=== PATIENT | female | born 1960 | race Caucasian/White ===

== ENCOUNTER 2023-09-13 17:33 | Inpatient (IN) | payer OTHER, SELFPAY ==
[2023-09-13 18:35] VITALS: BMI 44.3
--- NOTE | 2023-09-13 18:40 | ED.GENADULT ---
HPI - General Adult General Chief complaint: Psychiatric Symptoms Stated complaint: crisis eval Time Seen by Provider: 09/13/23 18:03 Source: patient, RN notes reviewed and old records reviewed Mode of arrival: ambulatory Limitations: no limitations History of Present Illness HPI narrative: 62-year-old female presents for evaluation of depression. Patient reports that she has been depressed for quite some time. She was speaking to her therapist today and apparently endorse multiple plans for suicidal ideation but she refuses to develop disease plans to me. She continues to state ?I just have a lot going on. ? Patient reports that she feels safe in the hospital but ?I am unsure if I go home. ? She denies any somatic complaints Patient reports that she was at [facility] last week but did not feel comfortable as she was in a hallway so ultimately left Related Data Home Medications Medication Instructions Recorded Confirmed amlodipine 5 mg tablet 5 mg PO DAILY 09/14/23 09/14/23 buspirone 5 mg tablet 5 mg PO BID 09/14/23 09/14/23 calcium carbonate 600 mg-vitamin 1 tab PO BID 09/14/23 09/14/23 D3 10 mcg (400 unit) chewable tablet (Calcium 600 with Vitamin D3) donepezil 5 mg tablet 5 mg PO DAILY 09/14/23 09/14/23 doxepin 10 mg capsule 10 mg PO BEDTIME 09/14/23 09/14/23 gabapentin 100 mg capsule 100 mg PO TID 09/14/23 09/14/23 hydrochlorothiazide 12.5 mg capsule 12.5 mg PO DAILY 09/14/23 09/14/23 lamotrigine 100 mg tablet 100 mg PO DAILY 09/14/23 09/14/23 levothyroxine 200 mcg tablet 200 mcg PO DAILY 09/14/23 09/14/23 methadone 80 mg PO DAILY 09/14/23 09/14/23 multivitamin 1 tab PO DAILY 09/14/23 09/14/23 prazosin 1 mg capsule 1 mg PO BEDTIME 09/14/23 09/14/23 sertraline 100 mg tablet 100 mg PO BID 09/14/23 09/14/23 Allergies Allergy/AdvReac Type Severity Reaction Status Date / Time influenza virus vaccine, Allergy Unknown UNKNOWN Unverified 06/01/21 11:28 specific [Influenza Virus Vacc,Specific] pneumococcal vaccine Allergy Unknown UNKNOWN Unverified 06/01/21 11:28 [PNEUMOCOCCAL VACCINE] Sulfa (Sulfonamide Allergy Unknown UNKNOWN Unverified 06/01/21 11:28 Antibiotics) Review of Systems Constitutional: Constitutional: Denies body ache(s), Denies chills, Denies fever(s) and Denies headache(s) Eyes: Eyes: Denies blurry vision ENT: Denies headache(s) and Denies sore throat Cardiovascular: Cardiovascular: Denies chest pain Musculoskeletal: Musculoskeletal: Denies back pain Neurologic: Denies headache(s) Psychiatric: Psychiatric: Reports anxiety, Reports depression and Reports suicidal ideation [facility] Social History Social History (System 06/01/21 @ 11:28 by Linda Kuhn) Advance Directives: No Advance Directives Information Provided: No Physical Exam ED Vital Signs: Vital Signs - 24 hr 09/14/23 04:42 09/14/23 07:40 Respiratory Rate 16 16 BMI result Body Mass Index 44.3 Const General: healthy appearing, comfortable, no acute distress, alert and awake Nutritional Appearance: well nourished Orientation/consciousness: patient oriented x3 HENMT Head: Yes normocephalic and Yes atraumatic Eyes Eyelids: Yes eyelids normal Conjunctivae: conjunctivae normal Sclerae: sclerae normal Corneas: corneas normal Pupils: Equal, round and reactive pupils present EOM: EOMs intact bilaterally Neck Neck: Yes full ROM Resp Effort & Inspection: normal respiratory effort, able to speak in complete sentences and not labored Skin General skin exam: elasticity normal Neuro General: patient oriented x3 Cranial nerves: Yes CN's II-XII intact bilaterally, Yes Equal, round and reactive pupils present and Yes Bilaterally intact EOM present Cognition (Neuro): normal cognition Extrem Other: Moving all extremities well without any obvious deformities Course Reevaluation(s) Reevaluation #1: observation continued no acute events VS pending CARE team bed search Time: 09:21 Medications Administered Discontinued Medications Generic Name Dose Route Start Last Admin Trade Name Erwin PRN Reason Stop Dose Admin Ibuprofen 600 mg 09/13/23 20:11 09/13/23 20:14 Ibuprofen 600 Mg Tablet PO 09/13/23 20:12 600 mg ONCE ONE Administration Lorazepam 2 mg 09/13/23 19:09 09/13/23 19:38 Lorazepam 1 Mg Tablet PO 09/13/23 19:10 2 mg ONCE ONE Administration Nicotine 21 mg 09/13/23 20:43 09/13/23 20:46 Nicotine 21 Mg Patch.Td24 TRANSDERMA 09/13/23 20:44 21 mg ONCE ONE Administration Medical Decision Making Medical Decision Making MDM Narrative: 62-year-old female presents for evaluation depression with suicidal ideation. The patient is unable to tell me that she has not suicidal and per her therapist has several plans for suicidal ideation. The patient was requesting discharge because she was told she can not have her iPad with her. Unfortunately given the plans for suicide ideation I feel the patient should not be discharged without a proper crisis evaluation. The patient was placed on a section 12. Plan for medical clearance and care team evaluation Differential Diagnosis Differential Diagnoses: The differential diagnosis associated with the presentation includes Depression Suicidal ideation Medication noncompliance Bipolar disorder Lab Data 09/13/23 20:38 09/13/23 20:38 Labs: Lab Results 09/13/23 09/13/23 Range/Units 18:50 20:38 WBC 3.8 L (4.8-10.8) X10*3/uL RBC 3.72 L (4.20-5.50) X10*6/uL Hgb 11.8 L (12.0-16.0) g/dl Hct 34.2 L (37.0-47.0) % MCV 91.9 (80.0-98.0) fL MCH 31.7 (27.0-33.0) pg MCHC 34.5 (31.0-35.0) g/dl RDW 13.9 (11.0-16.0) % Plt Count 104 L (160-400) X10*3/uL MPV 9.1 L (9.4-12.3) fL Immature Gran % (Auto) 0.3 (0.0-0.4) % Neut % (Auto) 60.6 (45-73) % Lymph % (Auto) 26.3 (20-40) % [place] % (Auto) 8.8 (2-11) % Eos % (Auto) 3.2 (0-4) % Baso % (Auto) 0.8 (0-2) % Lymph # (Auto) 1.0 L (1.2-4.9) X10*3/uL [place] # (Auto) 0.3 (0.1-1.2) X10*3/uL Eos # (Auto) 0.1 (0.0-0.4) X10*3/uL Baso # (Auto) 0.0 (0.0-0.2) X10*3/uL Abs Immat Gran (auto) 0.01 (0.00-0.03) X10*3/uL Absolute Neuts (auto) 2.3 (2.0-8.3) x10*3/uL Absolute Nucleated RBC 0.000 (0.0-0.012) X10*3/uL Nucleated RBC % (auto) 0.0 (0.0-0.2) /100WBC Sodium 140 (135-145) mmol/L Potassium 3.8 (3.3-5.1) mmol/L Chloride 104 (96-108) mmol/L Carbon Dioxide 28 (22-29) mmol/L Anion Gap 12 (12-20) BUN 31 H (9-16) mg/dL Creatinine 0.95 (0.5-1.4) mg/dL Estim Creat Clear Calc 76.3 Estimated GFR > 60 Random Glucose 93 (60-115) mg/dL Calcium 10.0 (8.4-10.2) mg/dL Magnesium 2.1 (1.6-2.6) mg/dL Total Bilirubin 0.6 (0.0-1.0) mg/dL AST 45 H (5-31) U/L ALT 31 (0-31) U/L Alkaline Phosphatase 90 (39-117) U/L Total Protein 8.2 H (6.5-8.0) g/dL Albumin 4.4 (3.5-5.0) g/dL Urine Color Yellow Urine Appearance Clear Urine pH 6.0 (5.0-9.0) Ur Specific [place] 1.020 (1.005-1.025) Urine Protein Negative (Neg-Trace) mg/dL Urine Glucose (UA) Negative (Negative) mg/dL Urine Ketones Negative (Negative) mg/dL Urine Blood Negative (Negative) Urine Nitrite Negative (Negative) Ur Leukocyte Esterase Small (1+) H (Negative) Urine RBC 0-2 (0-2) /HPF Urine WBC 0-5 (0-5) /HPF Ur Squamous Epith Cells 0-2 (0-2) /HPF Urine Bacteria None Seen (None Seen) Hyaline Casts 0-2 (0-2) /LPF Salicylates < 5.0 L (15-30) mg/dL Urine Opiates Screen Not Detected (Not Detect) Urine Fentanyl Screen POSITIVE H (Not Detect) Acetaminophen < 3 (<30) mcg/mL Ur Barbiturates Screen Not Detected (Not Detect) Ur Phencyclidine Scrn Not Detected (Not Detect) Ur Amphetamines Screen Not Detected (Not Detect) U Benzodiazepines Scrn Not Detected (Not Detect) Urine Cocaine Screen POSITIVE H (Not Detect) U Marijuana (THC) Screen Not Detected (Not Detect) Ethyl Alcohol < 10 mg/dL Discharge Plan Discharge Clinical Impression: Depression, Suicidal ideation Patient Disposition: Still a Patient Prescriptions: No Action multivitamin Tablet 1 tab PO DAILY buspirone 5 mg tablet 5 mg PO BID prazosin 1 mg capsule 1 mg PO BEDTIME sertraline 100 mg tablet 100 mg PO BID amlodipine 5 mg tablet 5 mg PO DAILY hydrochlorothiazide 12.5 mg capsule 12.5 mg PO DAILY levothyroxine 200 mcg tablet 200 mcg PO DAILY gabapentin 100 mg capsule 100 mg PO TID lamotrigine 100 mg tablet 100 mg PO DAILY donepezil 5 mg tablet 5 mg PO DAILY doxepin 10 mg capsule 10 mg PO BEDTIME Calcium 600 with Vitamin D3 600 mg-10 mcg (400 unit) tablet,chewable 1 tab PO BID methadone 80 mg PO DAILY Interventions: [place]-Suicide Risk Severity Scale Last Done: 09/13/23 23:48
[2023-09-13 18:56] LABS: Appearance Urine Clear; Color Urine Yellow; Glucose Urine UA Negative (Negative); Leukocyte Esterase Urine Small (1+) (Negative); Nitrite Urine Negative (Negative); UMIC TRIGGER UACC YES; Urine Blood Negative (Negative); Urine Ketones Negative (Negative); Urine Protein Negative (Neg-Trace)
[2023-09-13 19:06] LABS: Amphetamine Screen Urine Not Detected (Not Detect); Barbiturates, Urine Not Detected (Not Detect); Benzodiazepines Screen Urine Not Detected (Not Detect); Cannabinoid Screen Urine Not Detected (Not Detect); Cocaine Screen Urine POSITIVE (Not Detect); Opiate Screen Urine Not Detected (Not Detect); Phencyclidine Screen Urine Not Detected (Not Detect)
[2023-09-13 19:11] LABS: Bacteria Urine None Seen (None Seen); Hyaline Casts Urine 0-2 /LPF (0-2); RBC Urine 0-2 /HPF (0-2); Squamous Epithelial Cell Urine 0-2 /HPF (0-2); UACC Culture Trigger YES; WBC Urine 0-5 /HPF (0-5)
--- NOTE | 2023-09-13 19:12 | PC.NURSE ---
patient appears to remain agitated in milieu taking snacks ordering around staff and crying periodically. patient periodically laughing.
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
[2023-09-13 19:24] LABS: Fentanyl, urine POSITIVE (Not Detect)
[2023-09-13] MEDS: LORazepam 1 MG TABLET 2 MG PO (19:38)
--- NOTE | 2023-09-13 19:45 | MHC.EDTECH ---
t/w and another tech attempted blood draw. pt extremely difficult stick. rn made aware.
[2023-09-13] MEDS: Ibuprofen 600 MG TABLET PO (20:14)
[2023-09-13 20:44] LABS: MANUAL DIFF FLAG NO
[2023-09-13 20:46] LABS: Basophils Percent Auto 0.8 % (0-2); Eosinophils Absolute Auto 0.1 X10*3/uL (0.0-0.4); Eosinophils Percent Auto 3.2 % (0-4); Hematocrit 34.2 % (37.0-47.0); Hemoglobin 11.8 g/dl (12.0-16.0); Imm Gran Abs Auto 0.01 X10*3/uL (0.00-0.03); Imm Gran Pct Auto 0.3 % (0.0-0.4); Lymphocytes Percent Auto 26.3 % (20-40); Mean Corpuscular HGB Conc 34.5 g/dl (31.0-35.0); Mean Corpuscular Hemoglobin 31.7 pg (27.0-33.0); Mean Corpuscular Volume 91.9 fL (80.0-98.0); Mean Platelet Volume 9.1 fL (9.4-12.3); Monocytes Absolute Auto 0.3 X10*3/uL (0.1-1.2); Monocytes Percent Auto 8.8 % (2-11); Neutrophils Absolute Auto 2.3 x10*3/uL (2.0-8.3); Neutrophils Percent Auto 60.6 % (45-73); Platelet Count 104 X10*3/uL (160-400); Red Blood Count 3.72 X10*6/uL (4.20-5.50); Red Cell Distribution Width 13.9 % (11.0-16.0); White Blood Count 3.8 X10*3/uL (4.8-10.8)
[2023-09-13] MEDS: Nicotine 21 MG PATCH.TD24 TRANSDERMA (20:46)
[2023-09-13 21:03] LABS: Acetaminophen LAB < 3 mcg/mL (<30); Alanine Aminotransferase 31 U/L (0-31); Albumin Level 4.4 g/dL (3.5-5.0); Alkaline Phosphatase 90 U/L (39-117); Anion Gap 12 (12-20); Aspartate Amino Transferase 45 U/L (5-31); Bilirubin Total 0.6 mg/dL (0.0-1.0); Blood Urea Nitrogen 31 mg/dL (9-16); Carbon Dioxide 28 mmol/L (22-29); Chloride 104 mmol/L (96-108); Creatinine Clr Calc Pharmacy 76.3; Estimated Glomerular Filt Rate > 60; Ethanol < 10 mg/dL; Glucose Random 93 mg/dL (60-115); Magnesium 2.1 mg/dL (1.6-2.6); Potassium 3.8 mmol/L (3.3-5.1); Salicylate < 5.0 mg/dL (15-30); Sodium 140 mmol/L (135-145); Total Protein 8.2 g/dL (6.5-8.0)
[2023-09-14 04:42] VITALS: RESP 16
--- NOTE | 2023-09-14 06:52 | HE.PHANOTE ---
RE: methadone Received last dose verification form, [facility]N; 80mg on 09/11 but given take home bottles for 09/12-09/14; per nursing pt last dose was 09/12 @0800
[2023-09-14 07:40] VITALS: RESP 16
--- NOTE | 2023-09-14 07:40 | PC.NURSE ---
PT IS SLEEPING RESP EVEN AND UNLABORED.
--- NOTE | 2023-09-14 08:50 | ECG_ITS ---
Test Reason : CHECK QT Blood Pressure : / mmHG Vent. Rate : 054 BPM Atrial Rate : 054 BPM P-R Int : 176 ms QRS Dur : 102 ms QT Int : 478 ms P-R-T Axes : 061 -33 007 degrees QTc Int : 453 ms Sinus bradycardia Left axis deviation Septal infarct , age undetermined - could be related to lead placement Abnormal ECG When compared with ECG of 29-SEP-2009 14:52, Septal infarct is now Present Referred By: Gabriela Jimenes Electronically Signed By:DANIEL SAWYER
[2023-09-14 09:30] VITALS: BP 168/96; PULSE 54; RESP 17; TEMP 35.6; O2SAT 100
[2023-09-14] MEDS: Sertraline HCL 100 MG TABLET PO ×2 (09:42→20:34)
[2023-09-14] MEDS: amLODIPine Besylate 5 MG TABLET PO (09:42)
[2023-09-14] MEDS: hydroCHLOROthiazide 12.5 MG TABLET PO (09:42)
[2023-09-14] MEDS: methADONE HCl 20 MG/2 ML ORAL.CONC 80 MG PO (09:42)
[2023-09-14] MEDS: busPIRone HCl 5 MG TABLET PO ×2 (09:42→20:34)
[2023-09-14] MEDS: lamoTRIgine 100 MG TABLET PO (09:43)
[2023-09-14] MEDS: Donepezil HCl 5 MG TABLET PO (09:43)
[2023-09-14] MEDS: Gabapentin 100 MG CAPSULE PO ×3 (09:43→20:33)
[2023-09-14] MEDS: Calcium + Vitamin D 250 MG TABLET 500 MG PO ×2 (09:43→20:32)
[2023-09-14] MEDS: Multivitamin TABLET 1 TAB PO (09:43)
[2023-09-14 09:48] LABS: IDNOW Serial# 08D9AD1C
[2023-09-14 09:49] LABS: COVID-19 Test Negative (Negative)
--- NOTE | 2023-09-14 09:52 | PC.NURSE ---
PT IS A/O X 4 NO SOB/MARTHA NOTED. SPEAKS IN FULL SENTENCES. PT IS SITTING UP IN BED EATING BREAKFAST AT THIS TIME. C/O L ELBOW/LOWER FOREARM AREA SWELLING/PAIN 01/01, NO OPEN AREAS NOTED. PT AMB (I) GAIT STEADY WITH A WALKER. PT DENIES ANY SI/HI. PT AWARE OF PLAN OF CARE. WILL CONTINUE TO MONITOR.
[2023-09-14 11:34] VITALS: BP 139/82; PULSE 55; RESP 16; TEMP 36.6; O2SAT 97
[2023-09-14 14:00] VITALS: BP 139/79; PULSE 62; RESP 18; TEMP 36.4; O2SAT 99
--- NOTE | 2023-09-14 14:52 | PC.NURSE ---
Pt arrived on unit at 13:25. Skin check and vitals done. Pt oriented to unit.
[2023-09-14 16:06] VITALS: BMI 34.2
--- NOTE | 2023-09-14 16:07 | PC.NURSE ---
Pt refused the influenza vaccine- allergic
[2023-09-14 18:00] VITALS: BP 130/70; PULSE 60; RESP 18; TEMP 36.4; O2SAT 98
[2023-09-14] MEDS: hydrOXYzine HCL 25 MG TABLET PO (18:28)
[2023-09-14] MEDS: Acetaminophen 325 MG TABLET 650 MG PO (18:28)
[2023-09-14] MEDS: Nicotine 21 MG PATCH.TD24 TRANSDERMA (18:29)
[2023-09-14] MEDS: Prazosin HCL 1 MG CAPSULE PO (20:35)
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
--- NOTE | 2023-09-15 03:51 | PM.EVENT ---
Event Note Date of Service: 09/15/23 Event Note: Patient is a 62-year-old female with PMH significant for HTN, hypothyroidism, and mood disorder who is seen for evaluation of painful area of swelling on left forearm. Patient was recently admitted to [facility] from our ED. Pt reports area previously been bruised without swelling, though does not know any precipitating cause. Reports she is prone to easy bruising. Reports she thinks she hit her forearm on her iPad while still in the ED. Noticed swelling to the forearm shortly after arrival to the unit. Area of swelling to right forearm as pictured below. No significant ecchymosis noted. Is tender to the touch. No fluctuance or induration. ROM of elbow, wrist, and and intact. Low suspicion for fracture. Most likely hematoma secondary to trauma to the area. Will defer any imaging at this time. Would suggest cold compresses to the area. Elevate arm while at rest, and acetaminophen/NSAIDs for pain management. Time Spent With Patient Time: Total time managing care of this patient today ____ minutes.
[2023-09-15] MEDS: Ketorolac Tromethamine 10 MG TABLET PO (04:06)
[2023-09-15 07:52] LABS: Estimated Average Glucose 82 mg/dL; Hemoglobin A1c % 4.5 % (<6.0)
[2023-09-15 08:00] LABS: Cholesterol 116 mg/dL (<200); HDL Cholesterol 46 mg/dL (>40); LDL Cholesterol Calculated 56 mg/dL (<100); Magnesium 1.8 mg/dL (1.6-2.6); Triglycerides 74 mg/dL (<150)
[2023-09-15 08:15] LABS: Free T4 (Free Thyroxine) 0.76 ng/dL (0.71-1.85); Thyroid Stimulating Hormone 13.04 uIU/mL (0.32-4.0)
[2023-09-15 08:23] VITALS: BP 142/76; PULSE 60; RESP 16; TEMP 36.3; O2SAT 97
[2023-09-15 08:31] LABS: Folate 11.2 ng/mL (> or = 4.0); Vitamin B12 499 pg/mL (200-900)
[2023-09-15] MEDS: Donepezil HCl 5 MG TABLET PO (08:50)
[2023-09-15] MEDS: lamoTRIgine 100 MG TABLET PO (08:50)
[2023-09-15] MEDS: methADONE HCl 20 MG/2 ML ORAL.CONC 80 MG PO (08:50)
[2023-09-15] MEDS: Gabapentin 100 MG CAPSULE PO ×3 (08:50→20:52)
[2023-09-15] MEDS: Calcium + Vitamin D 250 MG TABLET 500 MG PO ×2 (08:50→20:52)
[2023-09-15] MEDS: Multivitamin TABLET 1 TAB PO (08:50)
[2023-09-15] MEDS: hydroCHLOROthiazide 12.5 MG TABLET PO (08:50)
[2023-09-15] MEDS: amLODIPine Besylate 5 MG TABLET PO (08:50)
[2023-09-15] MEDS: busPIRone HCl 5 MG TABLET PO ×2 (08:50→20:52)
[2023-09-15] MEDS: Sertraline HCL 100 MG TABLET PO ×2 (08:50→20:52)
[2023-09-15] MEDS: Nicotine 21 MG PATCH.TD24 TRANSDERMA (08:51)
[2023-09-15] MEDS: Levothyroxine Sodium 200 MCG TABLET PO (09:02)
[2023-09-15] MEDS: Acetaminophen 325 MG TABLET 650 MG PO ×2 (09:02→18:34)
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
[2023-09-15] MEDS: LORazepam 1 MG TABLET PO (12:33)
[2023-09-15 17:43] VITALS: BP 139/87; PULSE 58; RESP 18; TEMP 36.6; O2SAT 99
--- NOTE | 2023-09-15 18:58 | PC.NURSE ---
Patient refused to remove her nicotine patch. Said, she will do it at .
[2023-09-15] MEDS: Prazosin HCL 1 MG CAPSULE PO (20:52)
[2023-09-15] MEDS: Doxepin HCl 10 MG CAPSULE PO (20:53)
[2023-09-15] MEDS: hydrOXYzine HCL 25 MG TABLET PO (20:53)
[2023-09-16 08:50] VITALS: BP 176/88; PULSE 61; RESP 18; TEMP 36.4; O2SAT 100
[2023-09-16] MEDS: Nicotine 21 MG PATCH.TD24 TRANSDERMA (08:53)
[2023-09-16] MEDS: Levothyroxine Sodium 200 MCG TABLET PO (08:55)
[2023-09-16] MEDS: lamoTRIgine 100 MG TABLET PO (08:55)
[2023-09-16] MEDS: busPIRone HCl 5 MG TABLET PO ×2 (08:55→21:33)
[2023-09-16] MEDS: Gabapentin 100 MG CAPSULE PO ×3 (08:55→21:34)
[2023-09-16] MEDS: Multivitamin TABLET 1 TAB PO (08:55)
[2023-09-16] MEDS: Calcium + Vitamin D 250 MG TABLET 500 MG PO ×2 (08:55→21:33)
[2023-09-16] MEDS: hydroCHLOROthiazide 12.5 MG TABLET PO (08:55)
[2023-09-16] MEDS: Donepezil HCl 5 MG TABLET PO (08:55)
[2023-09-16] MEDS: amLODIPine Besylate 5 MG TABLET PO (08:56)
[2023-09-16] MEDS: Sertraline HCL 100 MG TABLET PO ×2 (08:56→21:33)
[2023-09-16] MEDS: LORazepam 1 MG TABLET PO (08:56)
[2023-09-16] MEDS: methADONE HCl 20 MG/2 ML ORAL.CONC 80 MG PO (08:56)
--- NOTE | 2023-09-16 08:59 | P.PNPSI_ITS ---
Subjective Subjective Date of Service: 09/16/23 Reason For Visit: PTSD Major Depression Recurrent Opiate Use Disorde Interim History: Patient reports she is feeling horrible. She was disturbed by her roommate who is restless and didn't sleep last night. She feels she needs another dose of Ativan and asks repeatedly. Explained it's not advised to add more Ativan (patient prone to substance use and had a recent relapse.) Patient has been on 1 mg a day for months. Patient was tearful. She is mostly isolated in her room. Review of Systems Constitutional: Denies body ache(s), Denies chills, Denies fever(s) and Denies headache(s) Eyes: Denies blurry vision Denies headache(s) and Denies sore throat Cardiovascular: Denies chest pain Musculoskeletal: Denies back pain Denies headache(s) Psychiatric: Reports anxiety, Reports depression and Reports suicidal ideation Mental Status Exam Mental Status Exam Patient Appearance: Fatigued and Unkempt Patient Orientation: Person, Place, Time and Situation Level of Consciousness: Awake and Appropriate Patient Behavior: Dependent, Cooperative, Anxious and Fatigued Mood Description: Depressed and Sad Affect Description: Withdrawn, Depressed and Sad Ability to Follow Directions: Good Speech Pattern: Clear Diagnostics Vital Signs (24Hr): Vital Signs - 24 hr 09/15/23 17:43 09/16/23 08:50 Temperature 97.8 F 97.6 F Pulse Rate 58 61 Respiratory Rate 18 18 Blood Pressure 139/87 176/88 H Pulse Oximetry 99 100 Oxygen Delivery Method Room Air Room Air BMI result Body Mass Index 34.2 Labs 09/13/23 20:38 09/13/23 20:38 Labs: Laboratory Results - last 48 hr 09/14/23 09/15/23 09:18 07:32 Estimat Average Glucose 82 Hemoglobin A1c % 4.5 Magnesium 1.8 Triglycerides 74 Cholesterol 116 LDL Cholesterol, Calc 56 HDL Cholesterol 46 Vitamin B12 499 Folate 11.2 TSH 13.04 H Free T4 0.76 COVID-19 ([facility]) Negative COVID-19 Clin Com See Note Medications Medications Current Medications Acetaminophen (Acetaminophen 325 Mg Tablet) 650 mg PO Q6H PRN PRN Reason: Headache/Pain Mild Scale (1-3) Last Admin: 09/15/23 18:34 Dose: 650 mg Al Hydroxide/Mg Hydroxide (Magnesium Hydrox/Alum Hydrox 30 Ml Oral.Susp) 30 ml PO Q6H PRN PRN Reason: Heartburn/Nausea Amlodipine Besylate (Amlodipine Besylate 5 Mg Tablet) 5 mg PO DAILY [facility]; Protocol Last Admin: 09/15/23 08:50 Dose: 5 mg Buspirone HCl (Buspirone Hcl 5 Mg Tablet) 5 mg PO BID [facility] Last Admin: 09/15/23 20:52 Dose: 5 mg Calcium Carbonate/Cholecalciferol (Calcium + Vitamin D 250 Mg Tablet) 500 mg PO BID [facility] Last Admin: 09/15/23 20:52 Dose: 500 mg Donepezil HCl (Donepezil Hcl 5 Mg Tablet) 5 mg PO DAILY [facility] Last Admin: 09/15/23 08:50 Dose: 5 mg Doxepin HCl (Doxepin Hcl 10 Mg Capsule) 10 mg PO BEDTIME [facility] Last Admin: 09/15/23 20:53 Dose: 10 mg Gabapentin (Gabapentin 100 Mg Capsule) 100 mg PO TID [facility] Last Admin: 09/15/23 20:52 Dose: 100 mg Hydrochlorothiazide (Hydrochlorothiazide 12.5 Mg Tablet) 12.5 mg PO DAILY [facility]; Protocol Last Admin: 09/15/23 08:50 Dose: 12.5 mg Hydroxyzine HCl (Hydroxyzine Hcl 25 Mg Tablet) 25 mg PO Q6H PRN PRN Reason: Anxiety Last Admin: 09/15/23 20:53 Dose: 25 mg Ketorolac Tromethamine (Ketorolac Tromethamine 10 Mg Tablet) 10 mg PO Q6H PRN PRN Reason: Pain, Moderate(Pain Scale 4-6) Stop: 09/19/23 12:24 Lamotrigine (Lamotrigine 100 Mg Tablet) 100 mg PO DAILY [facility] Last Admin: 09/15/23 08:50 Dose: 100 mg Levothyroxine Sodium (Levothyroxine Sodium 200 Mcg Tablet) 200 mcg PO DAILY@0600 [facility] Last Admin: 09/16/23 06:26 Dose: Not Given Lorazepam (Lorazepam 1 Mg Tablet) 1 mg PO DAILY [facility] Last Admin: 09/15/23 12:33 Dose: 1 mg Magnesium Hydroxide (Milk Of Magnesia 30 Ml Oral.Susp) 30 ml PO DAILY PRN PRN Reason: Constipation Methadone HCl (Methadone Hcl 20 Mg/2 Ml Oral.Conc) 80 mg PO DAILY [facility] Last Admin: 09/15/23 08:50 Dose: 80 mg Multivitamins/Vitamin C (Multivitamin Tablet) 1 tab PO DAILY [facility] Last Admin: 09/15/23 08:50 Dose: 1 tab Nicotine (Nicotine 21 Mg Patch.Td24) 21 mg TRANSDERMA DAILY [facility] Last Admin: 09/15/23 08:51 Dose: 21 mg Prazosin HCl (Prazosin Hcl 1 Mg Capsule) 1 mg PO BEDTIME [facility]; Protocol Last Admin: 09/15/23 20:52 Dose: 1 mg Sertraline HCl (Sertraline Hcl 100 Mg Tablet) 100 mg PO BID [facility] Last Admin: 09/15/23 20:52 Dose: 100 mg Trazodone HCl (Trazodone Hcl 50 Mg Tablet) 50 mg PO BEDTIME MRX1 PRN PRN Reason: Insomnia Allergies Allergies Allergy/AdvReac Type Severity Reaction Status Date / Time Sulfa (Sulfonamide Allergy Severe Difficulty Verified 09/14/23 20:32 Antibiotics) Swallowing influenza virus vaccine, Allergy Intermediate Swelling Verified 09/14/23 20:30 specific [Influenza Virus Vacc,Specific] pneumococcal vaccine Allergy Intermediate Swelling Verified 09/14/23 20:31 [PNEUMOCOCCAL VACCINE] Assessment & Plan Assessment & Plan (1) PTSD (post-traumatic stress disorder): Status: Acute Code(s): F43.10 - Post-traumatic stress disorder, unspecified (2) Polysubstance (including opioids) dependence w/o physiol dependence: Status: Acute Code(s): F19.20 - Other psychoactive substance dependence, uncomplicated (3) Depression, major, severe recurrence: Status: Acute Code(s): F33.2 - Major depressive disorder, recurrent severe without psychotic features Plan 62 yo female patient with polysubstance abuse including opioid use disorder, cocaine use disorder, PTSD and depression. Her [facility] worker recommended patient be seen by [facility] crisis due to concern re worsening depression and possible relapse. UTOX in ED is + for cocaine and fentanyl). Patient reports she has been having worsening depression and having SI with plan to OD. Precipitants include worsening medical symptoms, isolation and relapse on opioids and cocaine. Plan: - Admit to inpatient psychiatry - CV - Collateral information from family and providers. - Milieu treatment and group therapy. - Medications: Restart home meds pending collateral information. - Social work evaluation. - Disposition planning. 09/16/23: continue current management and treatment plan. home meds pending collateral information. Reason for continued inpatient stay Substantial Risk for: harm to self and med/psych decompensation Time Spent With Patient Time: Total time managing care of this patient today ____ minutes.
[2023-09-16 10:07] VITALS: BP 155/87; PULSE 59
[2023-09-16] MEDS: Acetaminophen 325 MG TABLET 650 MG PO (11:23)
[2023-09-16] MEDS: Ketorolac Tromethamine 10 MG TABLET PO ×2 (11:23→21:33)
[2023-09-16] MEDS: hydrOXYzine HCL 25 MG TABLET PO ×2 (11:24→21:33)
[2023-09-16] MEDS: Nicotine Polacrilex 2 MG GUM BUCCAL ×3 (15:55→21:46)
[2023-09-16 15:56] VITALS: BP 138/84; PULSE 58; RESP 18; TEMP 36.6; O2SAT 97
[2023-09-16] MEDS: Doxepin HCl 10 MG CAPSULE PO (21:33)
[2023-09-16] MEDS: Prazosin HCL 1 MG CAPSULE PO (21:34)
[2023-09-17] MEDS: Nicotine Polacrilex 2 MG GUM BUCCAL ×2 (02:57→22:21)
[2023-09-17] MEDS: busPIRone HCl 5 MG TABLET PO ×2 (08:37→22:14)
[2023-09-17] MEDS: Sertraline HCL 100 MG TABLET PO ×2 (08:37→22:14)
[2023-09-17] MEDS: lamoTRIgine 100 MG TABLET PO (08:37)
[2023-09-17] MEDS: Gabapentin 100 MG CAPSULE PO ×3 (08:37→22:13)
[2023-09-17] MEDS: amLODIPine Besylate 5 MG TABLET PO (08:37)
[2023-09-17] MEDS: Levothyroxine Sodium 200 MCG TABLET PO (08:37)
[2023-09-17] MEDS: LORazepam 1 MG TABLET PO ×2 (08:37→20:11)
[2023-09-17] MEDS: Multivitamin TABLET 1 TAB PO (08:38)
[2023-09-17] MEDS: Calcium + Vitamin D 250 MG TABLET 500 MG PO ×2 (08:38→22:14)
[2023-09-17] MEDS: Nicotine 21 MG PATCH.TD24 TRANSDERMA (08:38)
[2023-09-17] MEDS: methADONE HCl 20 MG/2 ML ORAL.CONC 80 MG PO (08:38)
[2023-09-17] MEDS: Donepezil HCl 5 MG TABLET PO (08:38)
[2023-09-17] MEDS: hydroCHLOROthiazide 12.5 MG TABLET PO (08:38)
[2023-09-17 09:09] VITALS: BP 130/73; PULSE 58; RESP 18; TEMP 36.4; O2SAT 99
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
--- NOTE | 2023-09-17 12:51 | PM.EVENT ---
Event Note Date of Service: 09/17/23 Event Note: Pt seen in follow up for hematoma left forearm. Pt denies any pain unless the area is manipulated. On comparison with prior photos as provided by my colleague in prior notes and the hematoma does appear smaller in size. Recommend cold packs applied to areas throughout the day. Discussed with RN and psychiatric provider also present on examination. Thank you for allowing me to participate in this consult. Signing off at this time. Please do not hesitate to call for further questions or for any acute medical issues. Time Spent With Patient Time: Total time managing care of this patient today ____ minutes.
[2023-09-17] MEDS: lamoTRIgine 25 MG TABLET 50 MG PO (13:26)
[2023-09-17] MEDS: LORazepam 0.5 MG TABLET PO ×2 (13:26→22:18)
[2023-09-17] MEDS: Acetaminophen 325 MG TABLET 650 MG PO (13:26)
[2023-09-17] MEDS: cloNIDine HCL 0.1 MG TABLET PO (14:58)
[2023-09-17 18:00] VITALS: BP 140/76; PULSE 57; RESP 17; TEMP 36.4; O2SAT 98
[2023-09-17] MEDS: Prazosin HCL 1 MG CAPSULE PO (22:13)
[2023-09-17] MEDS: Doxepin HCl 10 MG CAPSULE 20 MG PO (22:13)
[2023-09-17] MEDS: hydrOXYzine HCL 25 MG TABLET PO (22:18)
[2023-09-18] MEDS: Levothyroxine Sodium 200 MCG TABLET PO (06:45)
[2023-09-18] MEDS: Nicotine Polacrilex 2 MG GUM BUCCAL ×3 (06:45→14:40)
[2023-09-18 08:10] VITALS: BP 138/84; PULSE 62; RESP 18; TEMP 36.2; O2SAT 99
[2023-09-18] MEDS: Nicotine 21 MG PATCH.TD24 TRANSDERMA (08:43)
[2023-09-18] MEDS: methADONE HCl 20 MG/2 ML ORAL.CONC 80 MG PO (08:44)
[2023-09-18] MEDS: busPIRone HCl 5 MG TABLET PO (08:47)
[2023-09-18] MEDS: lamoTRIgine 25 MG TABLET 150 MG PO (08:47)
[2023-09-18] MEDS: Sertraline HCL 100 MG TABLET PO ×2 (08:47→21:22)
[2023-09-18] MEDS: Multivitamin TABLET 1 TAB PO (08:47)
[2023-09-18] MEDS: Donepezil HCl 5 MG TABLET PO (08:47)
[2023-09-18] MEDS: Calcium + Vitamin D 250 MG TABLET 500 MG PO ×2 (08:47→21:22)
[2023-09-18] MEDS: Gabapentin 100 MG CAPSULE PO ×3 (08:47→21:22)
[2023-09-18] MEDS: amLODIPine Besylate 5 MG TABLET PO (08:47)
[2023-09-18] MEDS: hydroCHLOROthiazide 12.5 MG TABLET PO (08:47)
[2023-09-18] MEDS: LORazepam 0.5 MG TABLET PO (09:51)
[2023-09-18 14:40] VITALS: BP 166/82; PULSE 65
[2023-09-18] MEDS: cloNIDine HCL 0.1 MG TABLET PO (14:40)
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
[2023-09-18] MEDS: Cyclobenzaprine HCl 5 MG TABLET PO (17:44)
[2023-09-18 18:00] VITALS: BP 139/83; PULSE 62; RESP 18; TEMP 36.7; O2SAT 99
[2023-09-18] MEDS: Prazosin HCL 1 MG CAPSULE 2 MG PO (21:21)
[2023-09-18] MEDS: LORazepam 1 MG TABLET PO (21:21)
[2023-09-18] MEDS: Doxepin HCl 25 MG CAPSULE PO (21:22)
[2023-09-19 07:53] VITALS: BP 104/65; PULSE 60; RESP 16; TEMP 36.5; O2SAT 99
[2023-09-19] MEDS: Nicotine 21 MG PATCH.TD24 TRANSDERMA (08:54)
[2023-09-19] MEDS: lamoTRIgine 25 MG TABLET 150 MG PO (08:55)
[2023-09-19] MEDS: Gabapentin 100 MG CAPSULE PO ×3 (08:56→22:14)
[2023-09-19] MEDS: hydroCHLOROthiazide 12.5 MG TABLET PO (08:56)
[2023-09-19] MEDS: Calcium + Vitamin D 250 MG TABLET 500 MG PO ×2 (08:56→22:14)
[2023-09-19] MEDS: Sertraline HCL 100 MG TABLET PO ×2 (08:57→22:15)
[2023-09-19] MEDS: Cyclobenzaprine HCl 5 MG TABLET PO ×2 (08:57→17:15)
[2023-09-19] MEDS: amLODIPine Besylate 5 MG TABLET PO (08:58)
[2023-09-19] MEDS: cloNIDine HCL 0.1 MG TABLET PO ×3 (08:58→21:09)
[2023-09-19] MEDS: Multivitamin TABLET 1 TAB PO (08:58)
[2023-09-19] MEDS: Levothyroxine Sodium 200 MCG TABLET PO (08:58)
[2023-09-19] MEDS: Donepezil HCl 5 MG TABLET PO (08:59)
[2023-09-19] MEDS: methADONE HCl 20 MG/2 ML ORAL.CONC 80 MG PO (08:59)
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
[2023-09-19] MEDS: Nicotine Polacrilex 2 MG GUM BUCCAL ×3 (10:42→19:59)
[2023-09-19] MEDS: LORazepam 1 MG TABLET PO (10:42)
[2023-09-19] MEDS: Acetaminophen 325 MG TABLET 650 MG PO (17:17)
[2023-09-19] MEDS: LORazepam 0.5 MG TABLET PO (21:09)
[2023-09-19 22:10] VITALS: BP 110/66; PULSE 62; TEMP 36.7
[2023-09-19] MEDS: Prazosin HCL 1 MG CAPSULE 2 MG PO (22:13)
[2023-09-19] MEDS: Doxepin HCl 25 MG CAPSULE PO (22:14)
[2023-09-20 07:00] VITALS: BMI 37.4
[2023-09-20 08:21] VITALS: BP 151/84; PULSE 54; RESP 18; TEMP 36.4; O2SAT 97
[2023-09-20] MEDS: methADONE HCl 20 MG/2 ML ORAL.CONC 80 MG PO (09:27)
[2023-09-20] MEDS: lamoTRIgine 25 MG TABLET 150 MG PO (09:27)
[2023-09-20] MEDS: Calcium + Vitamin D 250 MG TABLET 500 MG PO ×2 (09:28→20:21)
[2023-09-20] MEDS: Levothyroxine Sodium 200 MCG TABLET PO (09:28)
[2023-09-20] MEDS: Multivitamin TABLET 1 TAB PO (09:29)
[2023-09-20] MEDS: hydroCHLOROthiazide 12.5 MG TABLET PO (09:29)
[2023-09-20] MEDS: Gabapentin 100 MG CAPSULE PO ×3 (09:29→20:21)
[2023-09-20] MEDS: amLODIPine Besylate 5 MG TABLET PO (09:29)
[2023-09-20] MEDS: Donepezil HCl 5 MG TABLET PO ×2 (09:29→20:20)
[2023-09-20] MEDS: Nicotine 21 MG PATCH.TD24 TRANSDERMA (09:30)
[2023-09-20] MEDS: cloNIDine HCL 0.1 MG TABLET PO ×3 (09:30→20:21)
[2023-09-20] MEDS: Sertraline HCL 100 MG TABLET PO ×2 (09:31→20:20)
[2023-09-20 12:30] VITALS: BP 133/81; PULSE 62
[2023-09-20] MEDS: Nicotine Polacrilex 2 MG GUM BUCCAL ×2 (13:40→20:21)
[2023-09-20] MEDS: LORazepam 1 MG TABLET PO (15:00)
--- NOTE | 2023-09-20 15:02 | PC.NURSE ---
Approximately 1430 pt was found in her bathroom actively bleeding from left side of head. Blood soaked paper towels and wash clothes in pt's sink and on bathroom floor. Pt stated that she had a bump on the left side of her head, above her ear. Pt stated the bump had been there prior to admission. Pt denied hitting her head, but stated that she accidentally hit the area with her glasses while putting on glasses. Pt stated that directly after her glasses hit the area, she began to feel blood dripping down her face and neck. On assessment a hardened open raised area on left side of head above her ear was noted to be actively bleeding. Pt reported discomfort to area. Bleeding resolved after pressure applied. Area was then cleansed. Provider Dr. Hazel was notified. Awaiting orders.
[2023-09-20] MEDS: Prazosin HCL 1 MG CAPSULE 2 MG PO (20:20)
[2023-09-20] MEDS: Doxepin HCl 25 MG CAPSULE PO (20:20)
[2023-09-20] MEDS: Cyclobenzaprine HCl 5 MG TABLET PO (21:06)
[2023-09-20] MEDS: LORazepam 0.5 MG TABLET PO (21:06)
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
[2023-09-21 07:56] VITALS: BP 130/76; PULSE 58; RESP 16; TEMP 36.2; O2SAT 98
[2023-09-21] MEDS: Sertraline HCL 100 MG TABLET PO ×2 (08:52→21:49)
[2023-09-21] MEDS: Calcium + Vitamin D 250 MG TABLET 500 MG PO ×2 (08:52→21:49)
[2023-09-21] MEDS: hydroCHLOROthiazide 12.5 MG TABLET PO (08:52)
[2023-09-21] MEDS: cloNIDine HCL 0.1 MG TABLET PO ×2 (08:52→13:18)
[2023-09-21] MEDS: Donepezil HCl 5 MG TABLET PO ×2 (08:53→21:50)
[2023-09-21] MEDS: Multivitamin TABLET 1 TAB PO (08:53)
[2023-09-21] MEDS: Gabapentin 100 MG CAPSULE PO ×3 (08:53→21:49)
[2023-09-21] MEDS: amLODIPine Besylate 5 MG TABLET PO (08:53)
[2023-09-21] MEDS: Levothyroxine Sodium 200 MCG TABLET PO (08:53)
[2023-09-21] MEDS: methADONE HCl 20 MG/2 ML ORAL.CONC 80 MG PO (08:53)
[2023-09-21] MEDS: lamoTRIgine 25 MG TABLET 150 MG PO (08:53)
[2023-09-21] MEDS: Nicotine 21 MG PATCH.TD24 TRANSDERMA (08:54)
[2023-09-21 13:12] VITALS: BP 145/89; PULSE 63
[2023-09-21] MEDS: Cyclobenzaprine HCl 5 MG TABLET PO (13:18)
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
[2023-09-21 18:00] VITALS: BP 111/70; PULSE 61; RESP 18; TEMP 36.4; O2SAT 97
[2023-09-21] MEDS: LORazepam 0.5 MG TABLET PO (18:46)
[2023-09-21] MEDS: Doxepin HCl 25 MG CAPSULE 50 MG PO (21:49)
[2023-09-21] MEDS: Prazosin HCL 1 MG CAPSULE 2 MG PO (21:49)
[2023-09-21] MEDS: Nicotine Polacrilex 2 MG GUM BUCCAL (23:10)
[2023-09-22 08:00] VITALS: BP 130/74; PULSE 57; RESP 16; TEMP 36.4; O2SAT 96
[2023-09-22] MEDS: methADONE HCl 20 MG/2 ML ORAL.CONC 80 MG PO (09:29)
[2023-09-22] MEDS: hydroCHLOROthiazide 12.5 MG TABLET PO (09:30)
[2023-09-22] MEDS: cloNIDine HCL 0.1 MG TABLET PO ×2 (09:30→14:04)
[2023-09-22] MEDS: Sertraline HCL 100 MG TABLET PO ×2 (09:30→22:02)
[2023-09-22] MEDS: amLODIPine Besylate 5 MG TABLET PO (09:30)
[2023-09-22] MEDS: Calcium + Vitamin D 250 MG TABLET 500 MG PO ×2 (09:30→22:02)
[2023-09-22] MEDS: lamoTRIgine 25 MG TABLET 150 MG PO (09:30)
[2023-09-22] MEDS: Gabapentin 100 MG CAPSULE PO ×3 (09:30→22:02)
[2023-09-22] MEDS: Multivitamin TABLET 1 TAB PO (09:30)
[2023-09-22] MEDS: Nicotine 21 MG PATCH.TD24 TRANSDERMA (09:31)
[2023-09-22] MEDS: LORazepam 0.5 MG TABLET PO (09:39)
[2023-09-22] MEDS: Nicotine Polacrilex 2 MG GUM BUCCAL ×3 (10:15→22:04)
[2023-09-22] MEDS: Levothyroxine Sodium 200 MCG TABLET PO (10:17)
[2023-09-22] MEDS: Donepezil HCl 5 MG TABLET PO ×2 (10:20→22:02)
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
[2023-09-22] MEDS: polyethylene glycoL 3350 17 GM POWD.PACK PO (14:03)
[2023-09-22] MEDS: Acetaminophen 325 MG TABLET 650 MG PO (14:03)
[2023-09-22] MEDS: Cyclobenzaprine HCl 5 MG TABLET PO (14:04)
[2023-09-22 18:00] VITALS: BP 129/60; PULSE 61; RESP 16; TEMP 36.3; O2SAT 98
[2023-09-22 22:00] VITALS: BP 115/63; PULSE 59
[2023-09-22] MEDS: Prazosin HCL 1 MG CAPSULE 2 MG PO (22:02)
[2023-09-22] MEDS: Doxepin HCl 25 MG CAPSULE 50 MG PO (22:02)
[2023-09-22] MEDS: LORazepam 1 MG TABLET PO (22:04)
--- NOTE | 2023-09-22 23:30 | PC.NURSE ---
At 2300, a staff member collected headphones from pt. Pt appeared irritable. Pt appeared to become threatening. Pt stated, My fist would look good on the side of your head. The staff member disengaged.
[2023-09-23] MEDS: cloNIDine HCL 0.1 MG TABLET PO ×4 (00:35→23:56)
[2023-09-23] MEDS: LORazepam 0.5 MG TABLET PO ×2 (00:35→09:44)
[2023-09-23] MEDS: Nicotine Polacrilex 2 MG GUM BUCCAL ×5 (00:39→23:56)
[2023-09-23 08:00] VITALS: BP 123/74; PULSE 98; RESP 16; TEMP 36.4; O2SAT 97
[2023-09-23] MEDS: methADONE HCl 20 MG/2 ML ORAL.CONC 80 MG PO (09:42)
[2023-09-23] MEDS: hydroCHLOROthiazide 12.5 MG TABLET PO (09:44)
[2023-09-23] MEDS: Calcium + Vitamin D 250 MG TABLET 500 MG PO ×2 (09:44→20:38)
[2023-09-23] MEDS: Levothyroxine Sodium 200 MCG TABLET PO (09:44)
[2023-09-23] MEDS: Gabapentin 100 MG CAPSULE PO ×3 (09:44→20:38)
[2023-09-23] MEDS: Sertraline HCL 100 MG TABLET PO ×2 (09:45→20:38)
[2023-09-23] MEDS: amLODIPine Besylate 5 MG TABLET PO (09:45)
[2023-09-23] MEDS: Cyclobenzaprine HCl 5 MG TABLET PO (09:45)
[2023-09-23] MEDS: Donepezil HCl 5 MG TABLET PO ×2 (09:45→20:38)
[2023-09-23] MEDS: Acetaminophen 325 MG TABLET 650 MG PO ×2 (09:46→15:40)
[2023-09-23] MEDS: lamoTRIgine 25 MG TABLET 150 MG PO (09:49)
[2023-09-23] MEDS: Nicotine 21 MG PATCH.TD24 TRANSDERMA (09:50)
[2023-09-23] MEDS: Multivitamin TABLET 1 TAB PO (10:04)
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
[2023-09-23 16:04] VITALS: BP 116/71; PULSE 60; RESP 16; TEMP 36.6; O2SAT 98
[2023-09-23] MEDS: Prazosin HCL 1 MG CAPSULE 2 MG PO (20:38)
[2023-09-23] MEDS: Doxepin HCl 25 MG CAPSULE 50 MG PO (20:38)
[2023-09-23] MEDS: LORazepam 1 MG TABLET PO (20:41)
[2023-09-24 08:00] VITALS: BP 137/79; PULSE 60; RESP 16; TEMP 36.4; O2SAT 100
[2023-09-24] MEDS: methADONE HCl 20 MG/2 ML ORAL.CONC 80 MG PO (09:03)
[2023-09-24] MEDS: lamoTRIgine 25 MG TABLET 150 MG PO (09:05)
[2023-09-24] MEDS: cloNIDine HCL 0.1 MG TABLET PO ×2 (09:06→14:36)
[2023-09-24] MEDS: Sertraline HCL 100 MG TABLET PO ×2 (09:06→20:27)
[2023-09-24] MEDS: Acetaminophen 325 MG TABLET 650 MG PO ×2 (09:06→20:28)
[2023-09-24] MEDS: Calcium + Vitamin D 250 MG TABLET 500 MG PO ×2 (09:11→20:27)
[2023-09-24] MEDS: Donepezil HCl 5 MG TABLET PO ×2 (09:11→20:28)
[2023-09-24] MEDS: Gabapentin 100 MG CAPSULE PO ×3 (09:11→20:28)
[2023-09-24] MEDS: Levothyroxine Sodium 200 MCG TABLET PO (09:12)
[2023-09-24] MEDS: Multivitamin TABLET 1 TAB PO (09:12)
[2023-09-24] MEDS: hydroCHLOROthiazide 12.5 MG TABLET PO (09:12)
[2023-09-24] MEDS: Nicotine 21 MG PATCH.TD24 TRANSDERMA (09:13)
[2023-09-24] MEDS: amLODIPine Besylate 5 MG TABLET PO (09:13)
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
[2023-09-24] MEDS: Cyclobenzaprine HCl 5 MG TABLET PO (11:20)
[2023-09-24 18:00] VITALS: BP 130/73; PULSE 60; RESP 16; TEMP 36.5; O2SAT 99
[2023-09-24 19:37] VITALS: BP 130/73; PULSE 60; RESP 16; TEMP 36.5; O2SAT 99
[2023-09-24] MEDS: LORazepam 0.5 MG TABLET PO (20:27)
[2023-09-24] MEDS: Doxepin HCl 25 MG CAPSULE 50 MG PO (20:27)
[2023-09-24] MEDS: chlorproMAZINE HCl 25 MG TABLET 50 MG PO (20:27)
[2023-09-24] MEDS: Prazosin HCL 1 MG CAPSULE 2 MG PO (20:28)
[2023-09-24] MEDS: Nicotine Polacrilex 2 MG GUM BUCCAL (20:31)
[2023-09-25 06:00] VITALS: BP 143/76; PULSE 57; RESP 16; TEMP 36.4; O2SAT 100
[2023-09-25] MEDS: Levothyroxine Sodium 200 MCG TABLET PO (08:10)
[2023-09-25] MEDS: Calcium + Vitamin D 250 MG TABLET 500 MG PO ×2 (08:11→20:54)
[2023-09-25] MEDS: cloNIDine HCL 0.1 MG TABLET PO ×2 (08:11→13:35)
[2023-09-25] MEDS: Sertraline HCL 100 MG TABLET PO ×2 (08:11→20:54)
[2023-09-25] MEDS: Multivitamin TABLET 1 TAB PO (08:11)
[2023-09-25] MEDS: amLODIPine Besylate 5 MG TABLET PO (08:11)
[2023-09-25] MEDS: Gabapentin 100 MG CAPSULE PO ×2 (08:12→15:27)
[2023-09-25] MEDS: Donepezil HCl 5 MG TABLET PO ×2 (08:12→20:54)
[2023-09-25] MEDS: hydroCHLOROthiazide 12.5 MG TABLET PO (08:13)
[2023-09-25] MEDS: lamoTRIgine 25 MG TABLET 150 MG PO (08:13)
[2023-09-25] MEDS: Nicotine 21 MG PATCH.TD24 TRANSDERMA (08:14)
[2023-09-25] MEDS: methADONE HCl 20 MG/2 ML ORAL.CONC 80 MG PO (08:15)
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
[2023-09-25] MEDS: LORazepam 0.5 MG TABLET PO (10:15)
[2023-09-25] MEDS: Nicotine Polacrilex 2 MG GUM BUCCAL ×2 (11:05→13:34)
[2023-09-25 13:28] VITALS: BP 122/77; PULSE 64
[2023-09-25] MEDS: Cyclobenzaprine HCl 5 MG TABLET PO (16:04)
[2023-09-25 16:13] VITALS: BP 121/63; PULSE 62; RESP 16; TEMP 36.4; O2SAT 97
[2023-09-25] MEDS: chlorproMAZINE HCl 25 MG TABLET 50 MG PO (20:53)
[2023-09-25] MEDS: Prazosin HCL 1 MG CAPSULE 2 MG PO (20:53)
[2023-09-25] MEDS: Doxepin HCl 25 MG CAPSULE 50 MG PO (20:54)
[2023-09-25] MEDS: LORazepam 1 MG TABLET PO (20:55)
[2023-09-26 08:08] VITALS: BP 112/67; PULSE 66; RESP 17; TEMP 36.6; O2SAT 96
[2023-09-26] MEDS: lamoTRIgine 25 MG TABLET 150 MG PO (08:14)
[2023-09-26] MEDS: Donepezil HCl 5 MG TABLET PO (08:15)
[2023-09-26] MEDS: Calcium + Vitamin D 250 MG TABLET 500 MG PO (08:16)
[2023-09-26] MEDS: hydroCHLOROthiazide 12.5 MG TABLET PO (08:16)
[2023-09-26] MEDS: Nicotine 21 MG PATCH.TD24 TRANSDERMA (08:17)
[2023-09-26] MEDS: Levothyroxine Sodium 200 MCG TABLET PO (08:18)
[2023-09-26] MEDS: cloNIDine HCL 0.1 MG TABLET PO (08:18)
[2023-09-26] MEDS: amLODIPine Besylate 5 MG TABLET PO (08:18)
[2023-09-26] MEDS: Multivitamin TABLET 1 TAB PO (08:19)
[2023-09-26] MEDS: methADONE HCl 20 MG/2 ML ORAL.CONC 80 MG PO (08:19)
[2023-09-26] MEDS: Sertraline HCL 100 MG TABLET PO (08:19)
[2023-09-26] MEDS: Nicotine Polacrilex 2 MG GUM BUCCAL (08:57)
[2023-09-26] MEDS: Cyclobenzaprine HCl 5 MG TABLET PO (08:58)
[2023-09-26] MEDS: LORazepam 1 MG TABLET PO (09:03)
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
[2023-09-26] MEDS: Acetaminophen 325 MG TABLET 650 MG PO (09:40)
[2023-09-26] MEDS: Naloxone HCl Nasal TAKE HOME 4 MG SPRAY 8 MG NOSTRILALT (10:01)
== END 2023-09-26 10:58 | disposition home or self-care (01) | DRG 885 ==
LOC: HO.ED 20:33 → HO.PM5 09-14 10:48
PROVIDERS: Emergency Medicine; Physician Assistant; Admitting Provider Clinical Nurse Specialist Psychiatric/Mental Health, Adult; Emergency Provider Internal Medicine; PCP Internal Medicine; Visit Provider Psychiatry & Neurology Psychiatry
DX: F33.3 Major depressive disorder, recurrent, severe with psychotic symptoms (principal); R45.851 Suicidal ideations; F11.20 Opioid dependence, uncomplicated; F19.20 Other psychoactive substance dependence, uncomplicated; G47.419 Narcolepsy without cataplexy; I10 Essential (primary) hypertension; E03.9 Hypothyroidism, unspecified; F43.10 Post-traumatic stress disorder, unspecified; F17.210 Nicotine dependence, cigarettes, uncomplicated; Z71.6 Tobacco abuse counseling; Z62.810 Personal history of physical and sexual abuse in childhood; Z20.822 Contact with and (suspected) exposure to COVID-19; Z79.890 Hormone replacement therapy; Z79.899 Other long term (current) drug therapy
CPT/HCPCS: 36415; 80053; 80061; 80143; 80179; 80307; 81001; 82607; 82746; 83036; 83735; 84439; 84443; 85025; 87086; 87635; 93005; 99285

== ENCOUNTER → 2023-09-14 08:50 | Outpatient (BNV) | payer OTHER, SELFPAY | PROVIDERS: Admitting Provider Clinical Nurse Specialist Psychiatric/Mental Health, Adult; Emergency Provider Internal Medicine; PCP Internal Medicine; Visit Provider Internal Medicine | DX: R00.1 Bradycardia, unspecified (principal) | CPT/HCPCS: 93010 ==

== ENCOUNTER → 2023-09-14 10:41 | Outpatient (BNV) | payer OTHER, SELFPAY | PROVIDERS: Admitting Provider Clinical Nurse Specialist Psychiatric/Mental Health, Adult; Emergency Provider Internal Medicine; PCP Internal Medicine; Visit Provider Psychiatry & Neurology Psychiatry | DX: F33.2 Major depressive disorder, recurrent severe without psychotic features (principal); F19.20 Other psychoactive substance dependence, uncomplicated; F43.11 Post-traumatic stress disorder, acute | CPT/HCPCS: 90792; 99231; 99232; 99239 ==

== ENCOUNTER 2024-03-06 13:21 | Inpatient (IN) | payer OTHER, SELFPAY ==
--- NOTE | ~2024-03-06 | XR_ITS ---
EXAMINATION: XR CHEST 2 VIEWS CLINICAL INFORMATION: Cough. COMPARISON: Chest radiograph dated 03/15/2006 (report only). TECHNIQUE: Frontal and lateral views of the chest were obtained. FINDINGS: The heart, great vessels, pulmonary vasculature and mediastinum are normal. There are superior mediastinal surgical clips. The lungs show no focal infiltrate, effusion or pneumothorax. There is no acute osseous abnormality. There are right upper quadrant surgical clips. XR/XR chest 2V IMPRESSION: No active cardiopulmonary disease. Electronically signed by: Michael Salazar MD 03/06/2024 10:00 PM EDT
--- NOTE | ~2024-03-06 | XR_ITS ---
EXAMINATION: XR BILATERAL HIPS WITH AP PELVIS CLINICAL INFORMATION: Unwitnessed fall. COMPARISON: None available. TECHNIQUE: 2 AP views of the pelvis as well as AP and cross table frog lateral views of the bilateral hips. FINDINGS: The bones are diffusely demineralized. Moderate degenerative changes in the bilateral hips. Visualization is limited due to overlying metallic devices, likely snaps. Small 5 mm rounded calcification in the left hemipelvis. Moderate degenerative changes in each hip. Alignment of the bilateral hips maintained. Amorphous calcification in the soft tissues adjacent to the left greater trochanter. XR/XR hip BI w PEL1V IMPRESSION: 1. Moderate degenerative changes in the bilateral hips. 2. Diffuse demineralization. Additional imaging with CT scan or MRI should be considered for better visualization as these modalities are much more sensitive for detection of fracture or other underlying pathology. Electronically signed by: Antonia Ellis MD 03/11/2024 01:12 PM EDT
--- NOTE | ~2024-03-06 | CT_ITS ---
EXAMINATION: CT HEAD WITHOUT CONTRAST CLINICAL INFORMATION: Unwitnessed fall. COMPARISON: CT head 03/06/2024. TECHNIQUE: Contiguous axial imaging was performed from the skull base to vertex without intravenous administration of contrast. This CT examination was performed using dose optimization techniques as appropriate, variously including the following: *Automated exposure control *Adjustment of mA and/or kV according to patient size (this includes techniques or standardized protocols for targeted exams where dose is matched to indication/reason for exam; i.e. extremities or head) *Use of iterative reconstruction technique DLP: 861 mGy-cm FINDINGS: There is no acute intracranial hemorrhage or abnormal extra-axial collection. No intracranial mass effect or midline shift. Lateral and third ventricles are normal. No hydrocephalus. Kelly-white matter differentiation is preserved and there is no evidence of an acute territorial infarct. The calvarium and skull base are intact. Mastoid air cells and middle ear cavities are well aerated. No active paranasal sinus disease. CT/CT head/brain wo IV con IMPRESSION: Normal CT scan of the head. No evidence of acute territorial infarct or hemorrhage. Electronically signed by: Kiko Christina MD 03/11/2024 12:16 PM EDT
--- NOTE | ~2024-03-06 | CT_ITS ---
EXAMINATION: CT CERVICAL SPINE WITHOUT CONTRAST CLINICAL INFORMATION: Recurrent falls. COMPARISON: None available. TECHNIQUE: Noncontrast computed tomography of the cervical spine was performed. This CT examination was performed using dose optimization techniques as appropriate, variously including the following: *Automated exposure control *Adjustment of mA and/or kV according to patient size (this includes techniques or standardized protocols for targeted exams where dose is matched to indication/reason for exam; i.e. extremities or head) *Use of iterative reconstruction technique DLP: 362.85 mGy-cm FINDINGS: The vertebral bodies and posterior elements are anatomically aligned. There is no acute cervical spine fracture. The atlantooccipital articulations are intact. The C1-C2 relationship is anatomic. The dens is intact. Vertebral body heights are preserved. There is significant degenerative disc disease at C5-6 and C6-C7 characterized by intervertebral disc space narrowing, endplate sclerosis and cyst formation, and marginal osteophytosis. Prevertebral soft tissue is normal in appearance. Paraspinal soft tissue is normal in appearance. There is a partially visualized nodular opacity within the left lung apex measuring 1.9 x 1.4 cm. This is best seen on image #299, series #6. The lateral extent of this nodular opacity is indeterminate as it is collimated from the [id number]. Further evaluation with chest radiograph is recommended to further evaluate this. There are surgical clips along the medial aspect of the right lung apex. CT/CT cervical spine wo IV con IMPRESSION: No acute osseous cervical spine abnormality. Significant degenerative disease is noted at C5-6 and C6-7 as described. There is a partially visualized nodular opacity within the left lung apex measuring 1.9 x 1.4 cm. This is best seen on image #299, series #6. The lateral extent of this nodular opacity is indeterminate as it is collimated from the [id number]. Further evaluation with chest radiograph is recommended to further evaluate this. Fleischner guidelines were followed. Electronically signed by: Jose Tapia DO 03/06/2024 05:14 PM EDT
--- NOTE | ~2024-03-06 | CT_ITS ---
EXAMINATION: CT HIP WITHOUT CONTRAST, RIGHT CLINICAL INFORMATION: Unwitnessed fall. Abnormal radiograph. COMPARISON: Radiograph dated 03/11/2024 TECHNIQUE: Multidetector volumetric imaging was obtained through the right hip without contrast material. Multiplanar reformatted images were submitted in coronal and sagittal planes. This CT examination was performed using dose optimization techniques as appropriate, variously including the following: *Automated exposure control *Adjustment of mA and/or kV according to patient size (this includes techniques or standardized protocols for targeted exams where dose is matched to indication/reason for exam; i.e. extremities or head) *Use of iterative reconstruction technique DLP: 447 mGy-cm FINDINGS: Mild osteoarthritis of the right hip with mild subarachnoid joint space narrowing and small marginal osteophytes. No acute fracture or malalignment. There is portion of the right innominate bone is unremarkable. Minimal osteoarthritis in the right SI joint. Facet arthropathy is noted in the lower lumbar spine. Mild subcutaneous fat stranding in the lateral aspect of the hip. No fluid collections are identified. Musculature is normal. No adenopathy. Image intrapelvic structures are unremarkable. CT/CT hip RT wo IV con IMPRESSION: 1. No acute fracture or malalignment. 2. 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 Electronically signed by: Israel Maurer MD 03/11/2024 11:05 PM EDT
--- NOTE | ~2024-03-06 | CT_ITS ---
EXAMINATION: CT FACIAL BONES WITHOUT CONTRAST CLINICAL INFORMATION: Recurrent falls. Left periorbital ecchymosis. COMPARISON: None available. TECHNIQUE: Noncontrast computed tomography of the facial bones was performed. This CT examination was performed using dose optimization techniques as appropriate, variously including the following: *Automated exposure control *Adjustment of mA and/or kV according to patient size (this includes techniques or standardized protocols for targeted exams where dose is matched to indication/reason for exam; i.e. extremities or head) *Use of iterative reconstruction technique DLP: 872.88 mGy-cm FINDINGS: There is no acute facial bone fracture. The bony orbits are intact. The mandible is intact. Temporomandibular joints are intact. There is a small mucosal retention cyst within the inferior aspect of the right maxillary sinus. The paranasal sinuses are otherwise clear. The orbits are symmetric and within normal limits. The ocular globes are intact. The visualized brain parenchyma is normal in appearance. The visualized calvarium is intact. There is mild right frontal scalp swelling. Visualized mastoid air cells are clear. CT/CT facial bones wo IV con IMPRESSION: No acute facial bone fracture. Mild right frontal scalp swelling. Electronically signed by: Jose Tapia DO 03/06/2024 05:06 PM EDT RP
--- NOTE | ~2024-03-06 | CT_ITS ---
EXAMINATION: CT HEAD WITHOUT CONTRAST CLINICAL INFORMATION: Recurrent falls with head strike. COMPARISON: None available. TECHNIQUE: Contiguous axial imaging was performed from the skull base to vertex without intravenous administration of contrast. This CT examination was performed using dose optimization techniques as appropriate, variously including the following: *Automated exposure control *Adjustment of mA and/or kV according to patient size (this includes techniques or standardized protocols for targeted exams where dose is matched to indication/reason for exam; i.e. extremities or head) *Use of iterative reconstruction technique DLP: 708.52 mGy-cm FINDINGS: There is no acute intracranial hemorrhage. There is no evidence of acute/subacute cerebral or cerebellar infarction. There is no midline shift or mass effect. There is no extra-axial fluid collection. The ventricles are normal in size. The orbits are symmetric and within normal limits. The calvarium is intact. Visualized paranasal sinuses are clear. The nasal septum is deviated towards the left. Mastoid air cells are clear. CT/CT head/brain wo IV con IMPRESSION: No acute intracranial pathology. Electronically signed by: Jose Tapia DO 03/06/2024 04:56 PM EDT
--- NOTE | 2024-03-06 13:26 | ED.PSYCH ---
HPI - Psych General Chief Complaint: Psychiatric Symptoms Stated Complaint: SEC 12,SI,RECENT FALLS PER EMS Time Seen by Provider: 03/06/24 13:26 Source: patient, EMS, RN notes reviewed and old records reviewed Mode of arrival: EMS Limitations: no limitations History of Present Illness ED Provider: Finn Iglesias PA-C HPI Narrative: 63-year-old female with a history of PTSD, depression, polysubstance abuse (opioids and cocaine), reported history of narcolepsy, who presents to the ER via EMS for suicidal ideation on a section 12. Patient states she lives home alone. She has been very depressed with a plan to overdose on her medication as well as fentanyl. She states she has history of a stroke with left-sided weakness, and her narcolepsy makes her have recurrent falls. She states in the last year she has had over 200 falls and she has been keeping track of them all. Patient is tearful on arrival asking for her cereal. She states her serial would make her feel better. She states she called crisis today for her suicidal thoughts. MD complaint: suicidal ideation and anxiety Onset (ago): unknown Duration: getting worse History of same: Yes Relieving factors: none Exacerbating factors: none Context: significant life stressor Associated psychiatric symptoms: depression and suicidal ideation Treatments prior to arrival: placed on mental health hold If self harm: admits thoughts of self harm and has plan Related Data Home Medications ?Medication ?Instructions ?Recorded ?Confirmed methadone 10 mg/mL oral 90 mg PO DAILY 03/06/24 03/06/24 concentrate (Methadone Intensol) Previous Rx's ?Medication ?Instructions ?Recorded amlodipine 5 mg tablet 5 mg PO DAILY 30 days #30 tabs 09/26/23 calcium carbonate 600 mg-vitamin 1 tab PO BID 30 days #60 tabs 09/26/23 D3 10 mcg (400 unit) chewable tablet (Calcium 600 with Vitamin D3) chlorpromazine 25 mg tablet 25 mg PO BEDTIME PRN insomnia 30 09/26/23 days #30 tabs clonidine HCl 0.1 mg tablet 0.1 mg PO BID@0900,1300 30 days 09/26/23 #60 tabs cyclobenzaprine 5 mg tablet 5 mg PO BEDTIME PRN Pain, Moderate 09/26/23 30 days #30 tabs donepezil 5 mg tablet 5 mg PO BID 30 days #60 tabs 09/26/23 doxepin 50 mg capsule 50 mg PO BEDTIME 30 days #30 caps 09/26/23 hydrochlorothiazide 12.5 mg capsule 12.5 mg PO DAILY 30 days #30 caps 09/26/23 lamotrigine 150 mg tablet 150 mg PO DAILY 30 days #30 tabs 09/26/23 levothyroxine 200 mcg tablet 200 mcg PO DAILY 30 days #30 tabs 09/26/23 lorazepam 1 mg tablet 1 mg PO DAILY PRN Anxiety 30 days 09/26/23 #30 tabs multivitamin 1 tab PO DAILY 30 days #30 tabs 09/26/23 nicotine (polacrilex) 2 mg gum 2 mg buccal Q2H PRN Nicotine 09/26/23 Cravings 30 days #100 ea nicotine 21 mg/24 hr daily 21 mg transdermal DAILY PRN 09/26/23 transdermal patch nicotine cravings 28 days #28 ea prazosin 2 mg capsule 2 mg PO BEDTIME 30 days #30 caps 09/26/23 sertraline 100 mg tablet 100 mg PO BID 30 days #60 tabs 09/26/23 Allergies Allergy/AdvReac Type Severity Reaction Status Date / Time Sulfa (Sulfonamide Allergy Severe Difficulty Verified 03/06/24 13:41 Antibiotics) Swallowing influenza virus vaccine, Allergy Intermediate Swelling Verified 03/06/24 13:41 specific [Influenza Virus Vacc,Specific] pneumococcal vaccine Allergy Intermediate Swelling Verified 03/06/24 13:41 [PNEUMOCOCCAL VACCINE] Review of Systems Review of Systems: Yes all other systems are reviewed and are negative PMFSH Past Medical History Medical History (Updated 03/06/24 @ 20:44 by BONNY Jones) Anxiety and depression Mitral valve prolapse Chronic back pain Hypothyroidism Hepatitis C Obesity Classical migraine HTN (hypertension) Heartburn Hyperlipidemia Facet syndrome, lumbar End stage liver disease Lumbar stenosis Seizure disorder Cerebral aneurysm Polysubstance abuse Opioid abuse Syncope Surgical History (Updated 03/04/24 @ 10:13 by AMY Spears) Hx of tonsillectomy Hx of cholecystectomy Family History Family History (Updated 03/04/24 @ 10:16 by AMY Spears) Maternal Grandfather Myocardial infarction acute Father Melanoma Sister Ovarian carcinoma Paternal Grandmother Breast cancer in female Social History Social History (Updated 03/04/24 @ 10:13 by AMY Spears) Household Members: None Housing: Apartment Do you presently have visiting nurse or other home services: No Patient Tobacco Use Status: Current someday Tobacco user Tobacco use type: Cigarette Cigarettes Per Day: 10 Years Smoked: Many Substance Use Type: Crack/Cocaine Advance Directives: No Advance Directives Information Provided: Yes service: No Sexual orientation: Straight/Heterosexual Physical Exam Vital Signs: Vital Signs: Last Vital Signs Temp 97.5 F 03/07/24 02:31 Pulse 55 03/07/24 02:31 Resp 14 03/07/24 02:31 BP 159/92 H 03/07/24 02:31 Pulse Ox 97 03/07/24 02:31 O2 Del Method Room Air 03/07/24 02:31 BMI result Body Mass Index 34.3 Appearance: Alert. Oriented X3. Tearful and crying, Head/face: normocephalic, dark purple ecchymosis around the left periorbital area with peripheral yellowing Eyes: Pupils equal, round and reactive to light. Extraocular movements are intact ENT: Pharynx normal. no denition. No tonsillar swelling or exudate. Neck: Normal inspection. Neck supple. No midline tenderness. Soft tissue tenderness bilaterally with normal range of motion CVS: Normal heart rate and rhythm. Pulses normal. Respiratory: No respiratory distress. Breath sounds normal. Abdomen: Soft and nontender. +BS x4 Skin: Skin warm and dry. Normal skin color. Normal skin turgor. No rashes. Extremities: No lower extremity edema. No joint swelling. Neuro/psych: Oriented X 3. Left-sided weakness noted, CN II-XII intact. Slightly slurred speech, irritable, crying depressed mood. suicidal, irritable. Course Reevaluation(s) Reevaluation #1: Physician observation started at 20:54. Patient placed in physician observation because patient is awaiting CARE team evaluation for the possible need of inpatient psych admission. At the time observation was started patient's vital signs were stable. Patient is alert and oriented. Neuro exam revealing for chronic left sided weakness. CV: RRR and lungs are clear. Will continue to monitor. Time: 20:54 Reevaluation #2: Observation continued. No acute overnight events. Renal function continues to improve. Tolerating p.o. well. Pending crisis evaluation. Will continue to monitor. Time: 08:05 Medications Administered Discontinued Medications Generic Name Dose Route Start Last Admin Trade Name Freq PRN Reason Stop Dose Admin Sodium Chloride 1,000 mls @ 999 mls/hr 03/06/24 14:45 03/06/24 18:39 Ns IVCONT 03/06/24 15:45 Infused .Q1H1M SCAR Infusion Sodium Chloride 1,000 mls @ 999 mls/hr 03/06/24 17:15 03/06/24 19:59 Ns IV 03/06/24 18:15 Infused .Q1H1M SCAR Infusion Potassium Chloride 40 meq 03/06/24 20:50 03/06/24 21:10 Potassium Chloride Er 20 Meq Tab.Er.Prt PO 03/06/24 20:51 40 meq ONCE ONE Administration Medical Decision Making Medical Decision Making [facility] Narrative: 63-year-old female with history of a stroke, depression, PTSD, polysubstance use, narcolepsy who presents to the ER for evaluation of suicidal ideation with plan to overdose on her medication and fentanyl. She is on a section 12 from the community. She has periorbital ecchymosis on the left side that does not appear to be new. She does not have any pain with extraocular movements. She is tearful and agitated on arrival. Patient's lab workup shows a stable normocytic anemia, mild thrombocytopenia. Her chemistry shows a new acute kidney injury with BUN of 35 and creatinine of 2.2 from a baseline of 0.95 back in August of 2023. Urine electrolytes have been added along with CPK. She will require IV fluids. She is to come out of the behavioral plan for IV fluids and repeating labs to see if she improves with fluids or would require admission for further workup of her acute kidney injury. FENa 0.4% c/w pre-renal cause of CORY. She has been given 2L IVF and repeat BNP was sent. CT scans of the head and facial bones were performed along with CT of the cervical spine. No significant acute injuries were noted, no intracranial bleeding. Patient was noted to have a left upper lobe lung nodule so chest x-ray was ordered. She is a former smoker. She was unaware of a lung nodule Repeat basic metabolic panel shows improvement in CORY with BUN of 29 and creatinine of 1.44. She is tolerating p.o. well, given a pitcher of water. Her potassium is 3.2, oral potassium has been ordered. At this time patient is improved, she is medically cleared and able to go back to the Behavioral pod. She would like to be seen by the care team for ongoing psychiatric problems and suicidal thoughts. Will have the care team see her. Will repeat chemistry in the morning to ensure ongoing improvement. Differential Diagnosis Differential Diagnoses: The differential diagnosis associated with the presentation includes substance induced mood disorder, acute psychosis, schizophrenia, schizoaffective disorder, PTSD, bipolar disorder, major depression with psychotic features Admission/Observation Consideration of admission/observation: Escalation of care including admission/observation considered Lab Data MDM Lab Attestation statement: I reviewed the patient's lab results. New CORY which is changed from last month 03/06/24 14:13 03/07/24 07:06 Labs: Lab Results 03/06/24 03/06/24 03/06/24 Range/Units 14:13 16:56 16:57 WBC 5.8 (4.8-10.8) X10*3/uL RBC 3.73 L (4.20-5.50) X10*6/uL Hgb 11.8 L (12.0-16.0) g/dl Hct 33.1 L (37.0-47.0) % MCV 88.7 (80.0-98.0) fL MCH 31.6 (27.0-33.0) pg MCHC 35.6 H (31.0-35.0) g/dl RDW 14.1 (11.0-16.0) % Plt Count 145 L D (160-400) X10*3/uL MPV 8.7 L (9.4-12.3) fL Immature Gran % (Auto) 0.2 (0.0-0.4) % Neut % (Auto) 53.3 (45-73) % Lymph % (Auto) 26.9 (20-40) % Howard % (Auto) 12.0 H (2-11) % Eos % (Auto) 6.6 H (0-4) % Baso % (Auto) 1.0 (0-2) % Lymph # (Auto) 1.6 (1.2-4.9) X10*3/uL Howard # (Auto) 0.7 (0.1-1.2) X10*3/uL Eos # (Auto) 0.4 (0.0-0.4) X10*3/uL Baso # (Auto) 0.1 (0.0-0.2) X10*3/uL Abs Immat Gran (auto) 0.01 (0.00-0.03) X10*3/uL Absolute Neuts (auto) 3.1 (2.0-8.3) x10*3/uL Absolute Nucleated RBC 0.000 (0.0-0.012) X10*3/uL Nucleated RBC % (auto) 0.0 (0.0-0.2) /100WBC Sodium 139 (135-145) mmol/L Potassium 3.4 (3.3-5.1) mmol/L Chloride 103 (96-108) mmol/L Carbon Dioxide 27 (22-29) mmol/L Anion Gap 12 (12-20) BUN 35 H (9-16) mg/dL Creatinine 2.20 H (0.5-1.4) mg/dL Estim Creat Clear Calc 29.2 Estimated GFR 23 Random Glucose 82 (60-115) mg/dL Calcium 10.3 H (8.4-10.2) mg/dL Magnesium 2.2 (1.6-2.6) mg/dL Total Bilirubin 0.8 (0.0-1.0) mg/dL Direct Bilirubin 0.4 (0.0-0.5) mg/dL AST 34 H (5-31) U/L ALT 25 (0-31) U/L Alkaline Phosphatase 76 (39-117) U/L Total Creatine Kinase 247 H (26-140) U/L Total Protein 7.6 (6.5-8.0) g/dL Albumin 4.3 (3.5-5.0) g/dL Urine Color Dark Yellow Urine Appearance Clear Urine pH 5.0 (5.0-9.0) Ur Specific Peel 1.020 (1.005-1.025) Urine Protein Trace (Neg-Trace) mg/dL Urine Glucose (UA) Negative (Negative) mg/dL Urine Ketones Trace (Negative) mg/dL Urine Blood Negative (Negative) Urine Nitrite Negative (Negative) Ur Leukocyte Esterase Negative (Negative) Urine Osmolality 587 (373-1093) mosm/kg Ur Random Sodium 48.0 mmol/L Urine Creatinine 211.45 mg/dL Urine Opiates Screen Not Detected (Not Detect) Ur Buprenorphine Scrn Not Detected (Not Detect) ng/mL Ur Oxycodone Screen Not Detected (Not Detect) ng/mL Urine Methadone Screen Positive H (Not Detect) ng/mL Urine Fentanyl Screen Not Detected (Not Detect) Ur Barbiturates Screen Not Detected (Not Detect) Ur Phencyclidine Scrn Not Detected (Not Detect) Ur Amphetamines Screen Not Detected (Not Detect) U Benzodiazepines Scrn Not Detected (Not Detect) Urine Cocaine Screen POSITIVE H (Not Detect) U Marijuana (THC) Screen Not Detected (Not Detect) Ethyl Alcohol < 10 mg/dL 03/06/24 03/07/24 Range/Units 20:13 07:06 WBC (4.8-10.8) X10*3/uL RBC (4.20-5.50) X10*6/uL Hgb (12.0-16.0) g/dl Hct (37.0-47.0) % MCV (80.0-98.0) fL MCH (27.0-33.0) pg MCHC (31.0-35.0) g/dl RDW (11.0-16.0) % Plt Count (160-400) X10*3/uL MPV (9.4-12.3) fL Immature Gran % (Auto) (0.0-0.4) % Neut % (Auto) (45-73) % Lymph % (Auto) (20-40) % Howard % (Auto) (2-11) % Eos % (Auto) (0-4) % Baso % (Auto) (0-2) % Lymph # (Auto) (1.2-4.9) X10*3/uL Howard # (Auto) (0.1-1.2) X10*3/uL Eos # (Auto) (0.0-0.4) X10*3/uL Baso # (Auto) (0.0-0.2) X10*3/uL Abs Immat Gran (auto) (0.00-0.03) X10*3/uL Absolute Neuts (auto) (2.0-8.3) x10*3/uL Absolute Nucleated RBC (0.0-0.012) X10*3/uL Nucleated RBC % (auto) (0.0-0.2) /100WBC Sodium 140 140 (135-145) mmol/L Potassium 3.2 L 4.2 D (3.3-5.1) mmol/L Chloride 109 H 108 (96-108) mmol/L Carbon Dioxide 23 27 (22-29) mmol/L Anion Gap 11 L 9 L (12-20) BUN 29 H 26 H (9-16) mg/dL Creatinine 1.44 H 1.03 (0.5-1.4) mg/dL Estim Creat Clear Calc 44.7 62.6 Estimated GFR 37 54 Random Glucose 75 82 (60-115) mg/dL Calcium 9.4 D 9.1 (8.4-10.2) mg/dL Magnesium (1.6-2.6) mg/dL Total Bilirubin (0.0-1.0) mg/dL Direct Bilirubin (0.0-0.5) mg/dL AST (5-31) U/L ALT (0-31) U/L Alkaline Phosphatase (39-117) U/L Total Creatine Kinase (26-140) U/L Total Protein (6.5-8.0) g/dL Albumin (3.5-5.0) g/dL Urine Color Urine Appearance Urine pH (5.0-9.0) Ur Specific Peel (1.005-1.025) Urine Protein (Neg-Trace) mg/dL Urine Glucose (UA) (Negative) mg/dL Urine Ketones (Negative) mg/dL Urine Blood (Negative) Urine Nitrite (Negative) Ur Leukocyte Esterase (Negative) Urine Osmolality (373-1093) mosm/kg Ur Random Sodium mmol/L Urine Creatinine mg/dL Urine Opiates Screen (Not Detect) Ur Buprenorphine Scrn (Not Detect) ng/mL Ur Oxycodone Screen (Not Detect) ng/mL Urine Methadone Screen (Not Detect) ng/mL Urine Fentanyl Screen (Not Detect) Ur Barbiturates Screen (Not Detect) Ur Phencyclidine Scrn (Not Detect) Ur Amphetamines Screen (Not Detect) U Benzodiazepines Scrn (Not Detect) Urine Cocaine Screen (Not Detect) U Marijuana (THC) Screen (Not Detect) Ethyl Alcohol mg/dL Independent Interpretation I performed an independent interpretation of an: CT Scan Interpretation: CT head without acute bleed or edema Radiology Impression Discussion of test interpretation with radiology: I have reviewed the radiologist's reading. Radiologist Impression: CT/CT head/brain wo IV con IMPRESSION: No acute intracranial pathology. CT/CT facial bones wo IV con IMPRESSION: No acute facial bone fracture. Mild right frontal scalp swelling. EXAMINATION: CT CERVICAL SPINE WITHOUT CONTRAST CT/CT cervical spine wo IV con IMPRESSION: No acute osseous cervical spine abnormality. Significant degenerative disease is noted at C5-6 and C6-7 as described. There is a partially visualized nodular opacity within the left lung apex measuring 1.9 x 1.4 cm. This is best seen on image #299, series #6. The lateral extent of this nodular opacity is indeterminate as it is collimated from the [id number]. Further evaluation with chest radiograph is recommended to further evaluate this. Independent Historian Clinical information obtained from an independent historian. History obtained from or confirmed by: EMS External Record Review External record reviewed: Outpatient record, Prior outpatient labs and Prior outpatient radiology Tests considered The following testing was considered but not selected: Consider renal ultrasound or CT scan for evaluation of her abnormal renal function however not clinically indicated today Prescription Management I considered prescription management with: Other (Antipsychotic, anxiolytic) Chronic Conditions Patient?s care impacted by: Other (Depression, narcolepsy) Social Determinants Patient?s care significantly limited by Social Determinants of Health including: Problems related to primary support group and Other Social Determinant of Health Critical Care Time Critical Care Time Critical Care Time: Yes Total Critical Care Time: 44 Attestation: I have personally provided critical care time exclusive of time spent on separately billable procedures. Time includes review of lab data, radiology results, discussion with consultants, and monitoring for potential decompensation. Intervention performed as documented. Discharge Plan Discharge Clinical Impression: Suicidal ideation, CORY (acute kidney injury), Lung nodule Patient Disposition: Still a Patient Prescriptions: No Action nicotine 21 mg/24 hr Patch 24 Hour 21 mg transdermal DAILY PRN (Reason: nicotine cravings) 28 Days Qty: 28 0RF nicotine (polacrilex) 2 mg Gum 2 mg buccal Q2H PRN (Reason: Nicotine Cravings) 30 Days Qty: 100 0RF clonidine HCl 0.1 mg Tablet 0.1 mg PO BID@0900,1300 30 Days Qty: 60 0RF Protocol: Hold for SBP< HOLD for SBP < : 90 chlorpromazine 25 mg Tablet 25 mg PO BEDTIME PRN (Reason: insomnia) 30 Days Qty: 30 0RF multivitamin Tablet 1 tab PO DAILY 30 Days Qty: 30 0RF lamotrigine 150 mg tablet 150 mg PO DAILY 30 Days Qty: 30 0RF doxepin 50 mg capsule 50 mg PO BEDTIME 30 Days Qty: 30 0RF donepezil 5 mg tablet 5 mg PO BID 30 Days Qty: 60 0RF sertraline 100 mg tablet 100 mg PO BID 30 Days Qty: 60 0RF amlodipine 5 mg tablet 5 mg PO DAILY 30 Days Qty: 30 0RF hydrochlorothiazide 12.5 mg capsule 12.5 mg PO DAILY 30 Days Qty: 30 0RF levothyroxine 200 mcg tablet 200 mcg PO DAILY 30 Days Qty: 30 0RF lorazepam 1 mg tablet 1 mg PO DAILY PRN (Reason: Anxiety) 30 Days Qty: 30 0RF prazosin 2 mg capsule 2 mg PO BEDTIME 30 Days Qty: 30 0RF cyclobenzaprine 5 mg tablet 5 mg PO BEDTIME PRN (Reason: Pain, Moderate) 30 Days Qty: 30 0RF Calcium 600 with Vitamin D3 600 mg-10 mcg (400 unit) tablet,chewable 1 tab PO BID 30 Days Qty: 60 0RF methadone [Methadone Intensol] 10 mg/mL Concentrate 90 mg PO DAILY Interventions: [place]-Suicide Risk Severity Scale Last Done: 03/06/24 13:42 Print Language: Luxembourgish
[2024-03-06 13:38] VITALS: RESP 16; BMI 34.3
[2024-03-06 13:48] VITALS: BP 109/85; PULSE 75; RESP 20; TEMP 36.6; O2SAT 99
[2024-03-06 13:49] VITALS: BP 109/85; PULSE 75; RESP 20; TEMP 36.3; O2SAT 99
--- NOTE | 2024-03-06 14:00 | PC.NURSE ---
Bertha comes in today from home reporting SI with a plan to overdose on her home medications and fentanyl. She reports that she will find fentanyl on the street and mix it with her meds as a suicide attempt. Pt reports she has been having increasing life stressors some relating to her medical condition. She reports she had a stroke about 6 years prior and since then her mobility has been decreasing. Pt is noted to be leaning significantly to the left which she reports it he side with weakness secondary to her stroke. Pt walks with a cane at baseline, switched with a walker for stability while in the pod. Pt also reports that she has narcolepsy so oftentimes she falls asleep while talking, this was also reported by EMS. Pt was noted to be falling asleep during assessment questions with this RN. Pt is calm and cooperative, pre-occupied by having her cereal that is in black bag. This RN informed patient that she did not arrive with a black bag, to which patient began crying stating that all of her things are in the black bag and she cant lose it. Pt otherwise appears to be in no apparent distress, respirations even and unlabored, alert and oriented to self, location and situation, confused about date. Speech is clear when patient is awake, pupils of normal size, baseline left sided weakness noted d/t previous stroke Patient aware of plan of care for medical clearance and then CARE team evaluation
[2024-03-06 14:16] LABS: MANUAL DIFF FLAG NO
[2024-03-06 14:18] LABS: Basophils Absolute Auto 0.1 X10*3/uL (0.0-0.2); Eosinophils Absolute Auto 0.4 X10*3/uL (0.0-0.4); Eosinophils Percent Auto 6.6 % (0-4); Hematocrit 33.1 % (37.0-47.0); Hemoglobin 11.8 g/dl (12.0-16.0); Imm Gran Abs Auto 0.01 X10*3/uL (0.00-0.03); Imm Gran Pct Auto 0.2 % (0.0-0.4); Lymphocytes Absolute Auto 1.6 X10*3/uL (1.2-4.9); Lymphocytes Percent Auto 26.9 % (20-40); Mean Corpuscular HGB Conc 35.6 g/dl (31.0-35.0); Mean Corpuscular Hemoglobin 31.6 pg (27.0-33.0); Mean Corpuscular Volume 88.7 fL (80.0-98.0); Mean Platelet Volume 8.7 fL (9.4-12.3); Monocytes Absolute Auto 0.7 X10*3/uL (0.1-1.2); Neutrophils Absolute Auto 3.1 x10*3/uL (2.0-8.3); Neutrophils Percent Auto 53.3 % (45-73); Platelet Count 145 X10*3/uL (160-400); Red Blood Count 3.73 X10*6/uL (4.20-5.50); Red Cell Distribution Width 14.1 % (11.0-16.0); White Blood Count 5.8 X10*3/uL (4.8-10.8)
[2024-03-06 14:34] LABS: Alanine Aminotransferase 25 U/L (0-31); Albumin Level 4.3 g/dL (3.5-5.0); Alkaline Phosphatase 76 U/L (39-117); Anion Gap 12 (12-20); Aspartate Amino Transferase 34 U/L (5-31); Bilirubin Direct 0.4 mg/dL (0.0-0.5); Bilirubin Total 0.8 mg/dL (0.0-1.0); Blood Urea Nitrogen 35 mg/dL (9-16); Calcium 10.3 mg/dL (8.4-10.2); Carbon Dioxide 27 mmol/L (22-29); Chloride 103 mmol/L (96-108); Creatinine Clr Calc Pharmacy 29.2; Estimated Glomerular Filt Rate 23; Ethanol < 10 mg/dL; Glucose Random 82 mg/dL (60-115); Magnesium 2.2 mg/dL (1.6-2.6); Potassium 3.4 mmol/L (3.3-5.1); Sodium 139 mmol/L (135-145); Total Protein 7.6 g/dL (6.5-8.0)
--- NOTE | 2024-03-06 14:45 | HE.PHANOTE ---
RE: METHADONE DOSING Last dose of methadone 90 mg was taken on 03/05/24 @1030 at [facility] [phone] per RIGO Perez.
--- NOTE | 2024-03-06 14:50 | PC.NURSE ---
RE: belongings. All belongings placed in locker 3. This RN received two bottles of methadone from pts belongings. Bottles placed in sealed clear pharmacy medication bag. This RN attempted to call ED for second nurse to verify methadone in bag however, no nurse was available. Multiple attempts made. Methadone placed in locker with belongings for safe keeping until nurse is available to co-sign with this RN.
--- NOTE | 2024-03-06 15:30 | PC.NURSE ---
Pt has significant bruising to the left side of her face which she reports was a result of a fall a few days ago. She reports she has been falling more recently. BONNY Amezcua aware
[2024-03-06] MEDS: 0.9 % Sodium Chloride 1,000 ML 999 ML IVCONT (16:06)
[2024-03-06 17:17] LABS: Appearance Urine Clear; Color Urine Dark Yellow; Glucose Urine UA Negative (Negative); Leukocyte Esterase Urine Negative (Negative); Nitrite Urine Negative (Negative); Urine Blood Negative (Negative); Urine Ketones Trace mg/dL (Negative); Urine Protein Trace mg/dL (Neg-Trace)
[2024-03-06 17:33] LABS: Creatinine Urine 211.45 mg/dL
[2024-03-06 17:34] LABS: Amphetamine Screen Urine Not Detected (Not Detect); Barbiturates, Urine Not Detected (Not Detect); Benzodiazepines Screen Urine Not Detected (Not Detect); Buprenorphine Scr Not Detected (Not Detect); Cannabinoid Screen Urine Not Detected (Not Detect); Cocaine Screen Urine POSITIVE (Not Detect); Fentanyl, urine Not Detected (Not Detect); Methadone Screen, Urine Positive (Not Detect); Opiate Screen Urine Not Detected (Not Detect); Oxycodone Screen Urine Not Detected (Not Detect); Phencyclidine Screen Urine Not Detected (Not Detect)
[2024-03-06 17:49] LABS: Osmolality Urine 587 mosm/kg (373-1093)
[2024-03-06] MEDS: 0.9 % Sodium Chloride 1,000 ML 999 ML IV (18:40)
--- NOTE | 2024-03-06 20:18 | MHC.EDTECH ---
patient not allowing this tech to draw blood. will try again in 15 mins.
[2024-03-06 20:44] LABS: Anion Gap 11 (12-20); Blood Urea Nitrogen 29 mg/dL (9-16); Calcium 9.4 mg/dL (8.4-10.2); Carbon Dioxide 23 mmol/L (22-29); Chloride 109 mmol/L (96-108); Creatinine Clr Calc Pharmacy 44.7; Estimated Glomerular Filt Rate 37; Glucose Random 75 mg/dL (60-115); Potassium 3.2 mmol/L (3.3-5.1); Sodium 140 mmol/L (135-145)
[2024-03-06] MEDS: Potassium Chloride ER 20 MEQ TAB.ER.PRT 40 MEQ PO (21:10)
[2024-03-06 22:00] VITALS: BP 135/87; PULSE 81; RESP 17; O2SAT 98
[2024-03-07] VITALS (8 sets, daily range): BP systolic 102–172; BP diastolic 60–92; PULSE 55–78; RESP 14–16; TEMP 36.4–36.8; O2SAT 97–100
--- NOTE | 2024-03-07 | ECG_ITS ---
Test Reason : COCAINE USE Blood Pressure : / mmHG Vent. Rate : 054 BPM Atrial Rate : 054 BPM P-R Int : 194 ms QRS Dur : 100 ms QT Int : 498 ms P-R-T Axes : 015 -32 -12 degrees QTc Int : 472 ms Sinus bradycardia Left axis deviation Moderate voltage criteria for LVH, may be normal variant ( R in aVL , Josias product ) Cannot rule out Anterior infarct (cited on or before 14-SEP-2023) Nonspecific T wave abnormality Abnormal ECG When compared with ECG of 14-SEP-2023 09:14, Questionable change in initial forces of Septal leads Referred By: Goldie Iglesias Electronically Signed By:CHRISTOS GARNER
--- NOTE | 2024-03-07 00:03 | PC.NURSE ---
Addendum entered by Kamila Wilson RN 03/07/24 00:12: Was initially in the pod on arrival, then moved to main ED for additional care. Now cleared and returned to the pod. Original Note: Took report from Lauren ACEVEDO at 2320 hrs, moved from main ED, dressed in hospital attire. Belongs left at nurses station. Pt is a 63 y/o female who presented at the ED via EMS from home, brought in on section 12 for SI with reported plan to overdose, feelings of increased depression. Pt has an ecchymotic area around left eye reportedly from a fall 2-3 days ago. Pt reports frequent/recurrent falls secondary to having narcolepsy.
--- NOTE | 2024-03-07 00:14 | PC.NURSE ---
Addendum entered by Kamila Wilson RN 03/07/24 00:22: According to patient notes, pt was changed and belongings were collected and inventoried at 1315 hrs. Original Note: Pt reports frequent/recurrent falls at home secondary to Narcolepy. At 2330 hrs, after ambulating to bathroom with assistance from tech, pts personal socks were changed to red fall socks. When changing socks, a crack pipe was found in the left sock. Item was confiscated immediately and security notified. According to patient noted, pt was changed and belongings collected and we inventoried at 1315 hrs.
--- NOTE | 2024-03-07 00:15 | MHC.EDTECH ---
At 23:30 I requested BH4 to change the color of her socks because in report I was told she was a high fall risk. While changing the awad socks to red I questioned why the patient had her own white socks on. Pt reported she would have a reaction to anything other than cotton. I stuck my finger in the white socks to make sure nothing was in them and found a crack pipe in the left sock. The pipe made a small richard on the cuticle line of my right index finger no blood.
--- NOTE | 2024-03-07 00:33 | PC.NURSE ---
polisher implant informed of incident.
--- NOTE | 2024-03-07 01:27 | PC.NURSE ---
Addendum entered by Kamila Wilson RN 03/07/24 01:35: Neuro assessment negative, motor movement of upper and lower extremities is equal and strong. Facial and tongue movement is symmetrical. Smile is symmetrical. forging engineer and provider aware. Original Note: Pt is arousable with verbal stimilu, but sluggish to respond to questions and speech is slurred.
--- NOTE | 2024-03-07 02:10 | PC.NURSE ---
Security arrived to escort pt back to main ED, all pt belongs were gathered from pt locker. Two bottles of liquid methadone in sealed bag were found with belongings. instrument repairer helper made aware. Controlled medications were inventoried and resealed in envelope with signed paperwork.
--- NOTE | 2024-03-07 02:10 | MHC.EDTECH ---
ALL BELONGINGS TAKEN TO DECON BY SECURITY.
--- NOTE | 2024-03-07 02:15 | MHC.EDTECH ---
This tech took over care of patient at 0210AM,patient was moved from the POD,belongings were moved to [facility] ,patient was given a cup of [employer] Juice,sitter at bedside for safety.
--- NOTE | 2024-03-07 02:16 | PC.NURSE ---
Addendum entered by Catie oJse 03/07/24 02:17: pt noted to have bruising to the left eye but denies pain to site. Original Note: this rn assumed care of pt, pt brought from pod to ED bed 22 due to pt being high fall risk. sitter placed at bedside for safety. pt changed into green gown prior to arrival to ed bed 22 and belongings placed in decon by security.
--- NOTE | 2024-03-07 02:18 | PC.NURSE ---
Pt belongings transferred to [facility] with security.
[2024-03-07 07:26] LABS: Anion Gap 9 (12-20); Blood Urea Nitrogen 26 mg/dL (9-16); Calcium 9.1 mg/dL (8.4-10.2); Carbon Dioxide 27 mmol/L (22-29); Chloride 108 mmol/L (96-108); Creatinine Clr Calc Pharmacy 62.6; Estimated Glomerular Filt Rate 54; Glucose Random 82 mg/dL (60-115); Potassium 4.2 mmol/L (3.3-5.1); Sodium 140 mmol/L (135-145)
[2024-03-07] MEDS: lamoTRIgine 25 MG TABLET 150 MG PO (10:53)
[2024-03-07] MEDS: Multivitamin TABLET 1 TAB PO (10:55)
[2024-03-07] MEDS: Sertraline HCL 100 MG TABLET PO (10:55)
[2024-03-07] MEDS: amLODIPine Besylate 5 MG TABLET PO (10:55)
[2024-03-07] MEDS: methADONE HCl 20 MG/2 ML ORAL.CONC 90 MG PO (10:57)
[2024-03-07] MEDS: Nicotine 21 MG PATCH.TD24 TRANSDERMA (11:11)
[2024-03-07] MEDS: Levothyroxine Sodium 200 MCG TABLET PO (11:12)
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
[2024-03-07] MEDS: cloNIDine HCL 0.1 MG TABLET PO (11:52)
[2024-03-07] MEDS: Gabapentin 100 MG CAPSULE PO (11:52)
--- NOTE | 2024-03-07 12:25 | PC.NURSE ---
Nurse to Nurse report given to Goldie ACEVEDO on S1.
--- NOTE | 2024-03-07 14:10 | PC.NURSE ---
Per ED; all pts belongings are located in dec
[2024-03-07] MEDS: LORazepam 1 MG TABLET PO (15:15)
--- NOTE | 2024-03-07 17:15 | PC.NURSE ---
Pt declined to sign release forms maybe later
[2024-03-07] MEDS: TiZANidine HCL 4 MG TABLET PO ×2 (17:58→20:08)
--- NOTE | 2024-03-07 18:03 | PC.ADMIT ---
Bertha arrived to the unit @ 1258 via wheelchair an signed a CV with the provider. SHe was placed on 5 min checks for safety. Bertha reports numerous health issues including a dementia diagnosis and problems with balance, resulting in numerous falls, has led to an increase in depressive symptoms. She called crisis to report she has having suicidal thoughts with plans to overdose on mediations or illegal drugs as well as experiencing AVH of shadows and voices that are loud but I don;t know what they're saying . She also reports episodes of coming to and realizing she is in an animated episode of interacting with something that isn't there. Bertha has a self reported medical Hx of dementia, narcolepsy, HTN, cirrhosis of the liver, spinal stenosis, and strokes, and brain aneurysm. Bertha also has a poly sub hx most recently relapsing on cocaine to elevate my mood . She has an extensive hx of IPLOC and detox admissions and currently receiving 90mgs methadone. She reports ambulating with a cane at home but per OT eval it is recommended she ambulate with a wheelchair due to being too unsteady with a walker. During admission assessment pt is noted to have large hematoma to left eye from one of my many falls , a scar on upper midline of back from back surgery and venous statsis changes to BLES. She has extensive trauma history and became tearful when asked during the admission process. She is placed on 5min checks for safety.
[2024-03-07] MEDS: Prazosin HCL 1 MG CAPSULE 2 MG PO (20:07)
[2024-03-07] MEDS: Calcium + Vitamin D 250 MG TABLET 500 MG PO (20:07)
[2024-03-07] MEDS: Doxepin HCl 25 MG CAPSULE 50 MG PO (20:08)
[2024-03-08] MEDS: Levothyroxine Sodium 200 MCG TABLET PO (05:54)
--- NOTE | 2024-03-08 06:29 | PC.NURSE ---
at this time, patient declines to participate in safety tool interview. joya states i'm to tired now and i want to sleep.
[2024-03-08 08:11] LABS: Alanine Aminotransferase 17 U/L (0-31); Albumin Level 3.4 g/dL (3.5-5.0); Alkaline Phosphatase 65 U/L (39-117); Anion Gap 10 (12-20); Aspartate Amino Transferase 23 U/L (5-31); Bilirubin Total 0.4 mg/dL (0.0-1.0); Blood Urea Nitrogen 22 mg/dL (9-16); Calcium 9.2 mg/dL (8.4-10.2); Carbon Dioxide 25 mmol/L (22-29); Chloride 108 mmol/L (96-108); Cholesterol 109 mg/dL (<200); Creatinine Clr Calc Pharmacy 81.5; Estimated Glomerular Filt Rate > 60; Glucose Fasting 94 mg/dL (60-99); HDL Cholesterol 41 mg/dL (>40); LDL Cholesterol Calculated 56 mg/dL (<100); Magnesium 1.7 mg/dL (1.6-2.6); Potassium 3.9 mmol/L (3.3-5.1); Sodium 139 mmol/L (135-145); Total Protein 6.1 g/dL (6.5-8.0); Triglycerides 64 mg/dL (<150)
[2024-03-08 08:18] LABS: Estimated Average Glucose 91 mg/dL; Hemoglobin A1c % 4.8 % (<6.0)
[2024-03-08] MEDS: methADONE HCl 20 MG/2 ML ORAL.CONC 90 MG PO (08:18)
[2024-03-08 08:23] VITALS: BP 151/78; PULSE 60; RESP 16; TEMP 36.5; O2SAT 99
[2024-03-08 08:27] LABS: Thyroid Stimulating Hormone 11.63 uIU/mL (0.32-4.0)
[2024-03-08] MEDS: TiZANidine HCL 4 MG TABLET PO ×3 (08:28→22:05)
[2024-03-08] MEDS: Multivitamin TABLET 1 TAB PO (08:29)
[2024-03-08] MEDS: amLODIPine Besylate 5 MG TABLET PO (08:29)
[2024-03-08] MEDS: lamoTRIgine 25 MG TABLET 150 MG PO (08:29)
[2024-03-08] MEDS: Gabapentin 100 MG CAPSULE PO (08:30)
[2024-03-08] MEDS: Donepezil HCl 5 MG TABLET PO (08:31)
[2024-03-08] MEDS: Calcium + Vitamin D 250 MG TABLET 500 MG PO ×2 (08:31→22:05)
[2024-03-08] MEDS: Sertraline HCL 100 MG TABLET PO (08:32)
[2024-03-08] MEDS: Nicotine Polacrilex 2 MG GUM BUCCAL ×3 (08:35→22:02)
[2024-03-08 08:45] LABS: Folate 10.9 ng/mL (> or = 4.0); Vitamin B12 435 pg/mL (200-900)
--- NOTE | 2024-03-08 09:24 | HO.PSYCHPN ---
Subjective Subjective Date of Service: 03/09/24 Reason For Visit: SI Subjective Notes: Conditional Voluntary Interim History: Pt slept through the night. Pt reports feeling tired. She apologize for having crack pipe with her belongings and understands that stuff animal will not be given to her. She continues to report feeling depressed, intermittent SI but denies any plan or intent. asks for increase in ativan but explained this will not be done given ongoing substance use. Review of Systems Review of Systems Pt denies chest pain. She reports chronic back pain She denies headache. Chronic constipation due to methadone use no vomiting or abdominal pain. No SOB or wheezing Yes all other systems are reviewed and are negative Mental Status Exam Mental Status Exam Narrative: Appearance: wearing hospital gown, fair hygiene, in NAD Behavior: cooperative Psychomotor: no agitation or retardation noted Speech: clear, normal rate/rhythm/volume, spontaneous TP: linear TC: without psychosis, seeking treatment and help mood: depressed Affect: tearful SI: passive HI: none VH/AH: at times reports seeing shadows then realizes they are not there Delusions: no overt delusional content Insight/judgment: poor x 2. Memory/cog; alert, oriented x 4. pending MOCA and ACL. Diagnostics Vital Signs (24Hr): Vital Signs - 24 hr 03/07/24 10:55 03/07/24 11:52 03/07/24 12:58 Temperature 98.2 F Pulse Rate 78 Respiratory Rate 16 Blood Pressure 156/90 H 156/90 H 148/78 H Pulse Oximetry 100 Oxygen Delivery Method Room Air 03/07/24 20:00 03/07/24 20:07 03/07/24 21:05 Temperature 98.2 F Pulse Rate 55 Respiratory Rate 16 Blood Pressure 171/92 H 172/70 H 102/60 Pulse Oximetry 100 Oxygen Delivery Method Room Air 03/08/24 08:23 Temperature 97.7 F Pulse Rate 60 Respiratory Rate 16 Blood Pressure 151/78 H Pulse Oximetry 99 Oxygen Delivery Method Room Air BMI result Body Mass Index 34.3 Labs 03/06/24 14:13 03/08/24 07:38 Labs: Laboratory Results - last 48 hr 03/06/24 03/06/24 03/06/24 14:13 16:56 16:57 WBC 5.8 RBC 3.73 L Hgb 11.8 L Hct 33.1 L MCV 88.7 MCH 31.6 MCHC 35.6 H RDW 14.1 Plt Count 145 L D MPV 8.7 L Immature Gran % (Auto) 0.2 Neut % (Auto) 53.3 Lymph % (Auto) 26.9 [place] % (Auto) 12.0 H Eos % (Auto) 6.6 H Baso % (Auto) 1.0 Lymph # (Auto) 1.6 [place] # (Auto) 0.7 Eos # (Auto) 0.4 Baso # (Auto) 0.1 Abs Immat Gran (auto) 0.01 Absolute Neuts (auto) 3.1 Absolute Nucleated RBC 0.000 Nucleated RBC % (auto) 0.0 Sodium 139 Potassium 3.4 Chloride 103 Carbon Dioxide 27 Anion Gap 12 BUN 35 H Creatinine 2.20 H Estim Creat Clear Calc 29.2 Estimated GFR 23 Random Glucose 82 Fasting Glucose Estimat Average Glucose Hemoglobin A1c % Calcium 10.3 H Magnesium 2.2 Total Bilirubin 0.8 Direct Bilirubin 0.4 AST 34 H ALT 25 Alkaline Phosphatase 76 Total Creatine Kinase 247 H Total Protein 7.6 Albumin 4.3 Triglycerides Cholesterol LDL Cholesterol, Calc HDL Cholesterol Vitamin B12 Folate TSH Urine Color Dark Yellow Urine Appearance Clear Urine pH 5.0 Ur Specific [place] 1.020 Urine Protein Trace Urine Glucose (UA) Negative Urine Ketones Trace Urine Blood Negative Urine Nitrite Negative Ur Leukocyte Esterase Negative Urine Osmolality 587 Ur Random Sodium 48.0 Urine Creatinine 211.45 Urine Opiates Screen Not Detected Ur Buprenorphine Scrn Not Detected Ur Oxycodone Screen Not Detected Urine Methadone Screen Positive H Urine Fentanyl Screen Not Detected Ur Barbiturates Screen Not Detected Ur Phencyclidine Scrn Not Detected Ur Amphetamines Screen Not Detected U Benzodiazepines Scrn Not Detected Urine Cocaine Screen POSITIVE H U Marijuana (THC) Screen Not Detected Ethyl Alcohol < 10 03/06/24 03/07/24 03/08/24 20:13 07:06 07:38 WBC RBC Hgb Hct MCV MCH MCHC RDW Plt Count MPV Immature Gran % (Auto) Neut % (Auto) Lymph % (Auto) [place] % (Auto) Eos % (Auto) Baso % (Auto) Lymph # (Auto) [place] # (Auto) Eos # (Auto) Baso # (Auto) Abs Immat Gran (auto) Absolute Neuts (auto) Absolute Nucleated RBC Nucleated RBC % (auto) Sodium 140 140 139 Potassium 3.2 L 4.2 D 3.9 Chloride 109 H 108 108 Carbon Dioxide 23 27 25 Anion Gap 11 L 9 L 10 L BUN 29 H 26 H 22 H Creatinine 1.44 H 1.03 0.79 Estim Creat Clear Calc 44.7 62.6 81.5 Estimated GFR 37 54 > 60 Random Glucose 75 82 Fasting Glucose 94 Estimat Average Glucose 91 Hemoglobin A1c % 4.8 Calcium 9.4 D 9.1 9.2 Magnesium 1.7 Total Bilirubin 0.4 Direct Bilirubin AST 23 ALT 17 Alkaline Phosphatase 65 Total Creatine Kinase Total Protein 6.1 L Albumin 3.4 L Triglycerides 64 Cholesterol 109 LDL Cholesterol, Calc 56 HDL Cholesterol 41 Vitamin B12 435 Folate 10.9 TSH 11.63 H Urine Color Urine Appearance Urine pH Ur Specific [place] Urine Protein Urine Glucose (UA) Urine Ketones Urine Blood Urine Nitrite Ur Leukocyte Esterase Urine Osmolality Ur Random Sodium Urine Creatinine Urine Opiates Screen Ur Buprenorphine Scrn Ur Oxycodone Screen Urine Methadone Screen Urine Fentanyl Screen Ur Barbiturates Screen Ur Phencyclidine Scrn Ur Amphetamines Screen U Benzodiazepines Scrn Urine Cocaine Screen U Marijuana (THC) Screen Ethyl Alcohol Imaging Radiology Impressions: ITS Impressions Cervical Spine CT 03/06/24 15:47 IMPRESSION: No acute osseous cervical spine abnormality. Significant degenerative disease is noted at C5-6 and C6-7 as described. There is a partially visualized nodular opacity within the left lung apex measuring 1.9 x 1.4 cm. This is best seen on image #299, series #6. The lateral extent of this nodular opacity is indeterminate as it is collimated from the [id number]. Further evaluation with chest radiograph is recommended to further evaluate this. Fleischner guidelines were followed. Electronically signed by: Jose Tapia DO 03/06/2024 05:14 PM EDT RP Face CT 03/06/24 15:47 IMPRESSION: No acute facial bone fracture. Mild right frontal scalp swelling. Electronically signed by: Jose Tapia DO 03/06/2024 05:06 PM EDT RP Head CT 03/06/24 15:47 IMPRESSION: No acute intracranial pathology. Electronically signed by: Jose Tapia DO 03/06/2024 04:56 PM EDT RP Chest X-Ray 03/06/24 20:55 IMPRESSION: No active cardiopulmonary disease. Electronically signed by: Michael Salazar MD 03/06/2024 10:00 PM EDT RP Medications Medications Current Medications Acetaminophen (Acetaminophen 325 Mg Tablet) 650 mg PO Q6H PRN PRN Reason: Headache/Pain Mild Scale (1-3) Al Hydroxide/Mg Hydroxide (Magnesium Hydrox/Alum Hydrox 30 Ml Oral.Susp) 30 ml PO Q6H PRN PRN Reason: Heartburn/Nausea Amlodipine Besylate (Amlodipine Besylate 5 Mg Tablet) 5 mg PO DAILY [facility]; Protocol Last Admin: 03/08/24 08:29 Dose: 5 mg Calcium Carbonate/Cholecalciferol (Calcium + Vitamin D 250 Mg Tablet) 500 mg PO BID [facility] Last Admin: 03/08/24 08:31 Dose: 500 mg Cyclobenzaprine HCl (Cyclobenzaprine Hcl 5 Mg Tablet) 5 mg PO BEDTIME PRN PRN Reason: Pain, Moderate Donepezil HCl (Donepezil Hcl 5 Mg Tablet) 5 mg PO DAILY [facility] Last Admin: 03/08/24 08:31 Dose: 5 mg Doxepin HCl (Doxepin Hcl 25 Mg Capsule) 50 mg PO BEDTIME [facility] Last Admin: 03/07/24 20:08 Dose: 50 mg Gabapentin (Gabapentin 100 Mg Capsule) 100 mg PO DAILY [facility] Last Admin: 03/08/24 08:30 Dose: 100 mg Lamotrigine (Lamotrigine 25 Mg Tablet) 150 mg PO DAILY [facility] Last Admin: 03/08/24 08:29 Dose: 150 mg Levothyroxine Sodium (Levothyroxine Sodium 200 Mcg Tablet) 200 mcg PO DAILY@0600 [facility] Last Admin: 03/08/24 05:54 Dose: 200 mcg Lidocaine (Lidocaine 4 % Patch Adh..Patch) 1 patch TRANSDERMA DAILY [facility]; Protocol Last Admin: 03/08/24 08:32 Dose: Not Given Lorazepam (Lorazepam 1 Mg Tablet) 1 mg PO DAILY PRN PRN Reason: Anxiety Last Admin: 03/07/24 15:15 Dose: 1 mg Magnesium Hydroxide (Milk Of Magnesia 30 Ml Oral.Susp) 30 ml PO DAILY PRN PRN Reason: Constipation Methadone HCl (Methadone Hcl 20 Mg/2 Ml Oral.Conc) 90 mg PO DAILY [facility] Last Admin: 03/08/24 08:18 Dose: 90 mg Multivitamins/Vitamin C (Multivitamin Tablet) 1 tab PO DAILY [facility] Last Admin: 03/08/24 08:29 Dose: 1 tab Nicotine (Nicotine 21 Mg Patch.Td24) 21 mg TRANSDERMA DAILY PRN PRN Reason: nicotine cravings Last Admin: 03/07/24 11:11 Dose: 21 mg Nicotine Polacrilex (Nicotine Polacrilex 2 Mg Gum) 2 mg BUCCAL Q2H PRN PRN Reason: Nicotine Cravings Last Admin: 03/08/24 08:35 Dose: 2 mg Prazosin HCl (Prazosin Hcl 1 Mg Capsule) 2 mg PO BEDTIME [facility]; Protocol Last Admin: 03/07/24 20:07 Dose: 2 mg Sertraline HCl (Sertraline Hcl 100 Mg Tablet) 100 mg PO DAILY [facility] Last Admin: 03/08/24 08:32 Dose: 100 mg Tizanidine HCl (Tizanidine Hcl 4 Mg Tablet) 4 mg PO TID [facility] Last Admin: 03/08/24 08:28 Dose: 4 mg Allergies Allergies Allergy/AdvReac Type Severity Reaction Status Date / Time Sulfa (Sulfonamide Allergy Severe Difficulty Verified 03/06/24 13:41 Antibiotics) Swallowing influenza virus vaccine, Allergy Intermediate Swelling Verified 03/06/24 13:41 specific [Influenza Virus Vacc,Specific] pneumococcal vaccine Allergy Intermediate Swelling Verified 03/06/24 13:41 [PNEUMOCOCCAL VACCINE] Assessment & Plan Assessment & Plan (1) Depression, major, severe recurrence: Status: Acute Code(s): F33.2 - Major depressive disorder, recurrent severe without psychotic features (2) PTSD (post-traumatic stress disorder): Status: Acute Code(s): F43.10 - Post-traumatic stress disorder, unspecified (3) Cocaine use disorder: Status: Acute Code(s): F14.10 - Cocaine abuse, uncomplicated (4) Opioid use disorder, moderate, in early remission, on maintenance therapy, dependence: Status: Acute Code(s): F11.21 - Opioid dependence, in remission Plan Ms. Allen is a 63 year-old woman with hx of MDD, PTSD, cocaine and opioid use disorder who called [facility] crisis, assessed at her home and brought on a sect 12a. Utox positive for methadone and cocaine. She reports frequent falls and although she reports is due to narcolepsy also reports she underwent some studies and not prescribed any medications. Will gather collateral information from ehr PCP and neurology. She reports sporadic use of cocaine, vague psychotic symptoms although she reports are intermittent and she is aware others can't see them. PLAN 914- continue tx. Reason for continued inpatient stay Substantial Risk for: inability to function Time Spent With Patient Time: Total time managing care of this patient today ____ minutes.
[2024-03-08] MEDS: LORazepam 1 MG TABLET PO (14:48)
[2024-03-08 20:00] VITALS: RESP 14
[2024-03-08] MEDS: Nicotine 21 MG PATCH.TD24 TRANSDERMA (22:01)
[2024-03-08] MEDS: Doxepin HCl 25 MG CAPSULE 50 MG PO (22:05)
[2024-03-08] MEDS: Prazosin HCL 1 MG CAPSULE 2 MG PO (22:06)
[2024-03-09] MEDS: LORazepam 1 MG TABLET PO ×2 (00:41→20:54)
[2024-03-09] MEDS: Levothyroxine Sodium 200 MCG TABLET PO (05:36)
[2024-03-09] MEDS: Nicotine Polacrilex 2 MG GUM BUCCAL ×4 (05:39→23:57)
[2024-03-09] MEDS: lamoTRIgine 25 MG TABLET 150 MG PO (09:08)
[2024-03-09] MEDS: Donepezil HCl 5 MG TABLET PO (09:09)
[2024-03-09] MEDS: Sertraline HCL 100 MG TABLET PO (09:09)
[2024-03-09] MEDS: Gabapentin 100 MG CAPSULE PO (09:09)
[2024-03-09 09:10] VITALS: BP 144/81; PULSE 60; RESP 16; TEMP 36.2; O2SAT 100
[2024-03-09] MEDS: amLODIPine Besylate 5 MG TABLET PO (09:10)
[2024-03-09] MEDS: TiZANidine HCL 4 MG TABLET PO ×3 (09:10→20:53)
[2024-03-09] MEDS: Multivitamin TABLET 1 TAB PO (09:10)
[2024-03-09] MEDS: Calcium + Vitamin D 250 MG TABLET 500 MG PO ×2 (09:11→20:51)
[2024-03-09] MEDS: methADONE HCl 20 MG/2 ML ORAL.CONC 90 MG PO (09:11)
--- NOTE | 2024-03-09 11:34 | HO.PSYCHPN ---
Subjective Subjective Date of Service: 03/09/24 Reason For Visit: SI Subjective Notes: Conditional Voluntary Interim History: Pt slept through the night. Pt reports feeling tired, noted some somnolence after methadone dose. No SI/HI. She reports depressed mood. Does not think substance use is an issue. No behavioral concerns. Review of Systems Review of Systems Pt denies chest pain. She reports chronic back pain She denies headache. Chronic constipation due to methadone use no vomiting or abdominal pain. No SOB or wheezing Yes all other systems are reviewed and are negative Mental Status Exam Mental Status Exam Narrative: Appearance: wearing hospital gown, fair hygiene, in NAD Behavior: cooperative Psychomotor: no agitation or retardation noted Speech: clear, normal rate/rhythm/volume, spontaneous TP: linear TC: without psychosis, seeking treatment and help mood: depressed Affect: tearful SI: passive HI: none VH/AH: at times reports seeing shadows then realizes they are not there Delusions: no overt delusional content Insight/judgment: poor x 2. Memory/cog; alert, oriented x 4. pending MOCA and ACL. Diagnostics Vital Signs (24Hr): Vital Signs - 24 hr 03/08/24 20:00 03/09/24 09:10 03/09/24 09:10 Temperature 97.2 F Pulse Rate 60 Respiratory Rate 14 16 Blood Pressure 144/81 H 144/81 H Pulse Oximetry 100 Oxygen Delivery Method Room Air BMI result Body Mass Index 34.3 Labs 03/06/24 14:13 03/08/24 07:38 Labs: Laboratory Results - last 48 hr 03/08/24 07:38 Sodium 139 Potassium 3.9 Chloride 108 Carbon Dioxide 25 Anion Gap 10 L BUN 22 H Creatinine 0.79 Estim Creat Clear Calc 81.5 Estimated GFR > 60 Fasting Glucose 94 Estimat Average Glucose 91 Hemoglobin A1c % 4.8 Calcium 9.2 Magnesium 1.7 Total Bilirubin 0.4 AST 23 ALT 17 Alkaline Phosphatase 65 Total Protein 6.1 L Albumin 3.4 L Triglycerides 64 Cholesterol 109 LDL Cholesterol, Calc 56 HDL Cholesterol 41 Vitamin B12 435 Folate 10.9 TSH 11.63 H Imaging Radiology Impressions: ITS Impressions Cervical Spine CT 03/06/24 15:47 IMPRESSION: No acute osseous cervical spine abnormality. Significant degenerative disease is noted at C5-6 and C6-7 as described. There is a partially visualized nodular opacity within the left lung apex measuring 1.9 x 1.4 cm. This is best seen on image #299, series #6. The lateral extent of this nodular opacity is indeterminate as it is collimated from the [id number]. Further evaluation with chest radiograph is recommended to further evaluate this. Fleischner guidelines were followed. Electronically signed by: Jose Tapia DO 03/06/2024 05:14 PM EDT RP Face CT 03/06/24 15:47 IMPRESSION: No acute facial bone fracture. Mild right frontal scalp swelling. Electronically signed by: Jose Tapia DO 03/06/2024 05:06 PM EDT RP Head CT 03/06/24 15:47 IMPRESSION: No acute intracranial pathology. Electronically signed by: Jose Tapia DO 03/06/2024 04:56 PM EDT RP Chest X-Ray 03/06/24 20:55 IMPRESSION: No active cardiopulmonary disease. Electronically signed by: Michael Salazar MD 03/06/2024 10:00 PM EDT RP Medications Medications Current Medications Acetaminophen (Acetaminophen 325 Mg Tablet) 650 mg PO Q6H PRN PRN Reason: Headache/Pain Mild Scale (1-3) Al Hydroxide/Mg Hydroxide (Magnesium Hydrox/Alum Hydrox 30 Ml Oral.Susp) 30 ml PO Q6H PRN PRN Reason: Heartburn/Nausea Amlodipine Besylate (Amlodipine Besylate 5 Mg Tablet) 5 mg PO DAILY [facility]; Protocol Last Admin: 03/09/24 09:10 Dose: 5 mg Calcium Carbonate/Cholecalciferol (Calcium + Vitamin D 250 Mg Tablet) 500 mg PO BID [facility] Last Admin: 03/09/24 09:11 Dose: 500 mg Cyclobenzaprine HCl (Cyclobenzaprine Hcl 5 Mg Tablet) 5 mg PO BEDTIME PRN PRN Reason: Pain, Moderate Donepezil HCl (Donepezil Hcl 5 Mg Tablet) 5 mg PO DAILY [facility] Last Admin: 03/09/24 09:09 Dose: 5 mg Doxepin HCl (Doxepin Hcl 25 Mg Capsule) 50 mg PO BEDTIME [facility] Last Admin: 03/08/24 22:05 Dose: 50 mg Gabapentin (Gabapentin 100 Mg Capsule) 100 mg PO DAILY [facility] Last Admin: 03/09/24 09:09 Dose: 100 mg Lamotrigine (Lamotrigine 25 Mg Tablet) 150 mg PO DAILY [facility] Last Admin: 03/09/24 09:08 Dose: 150 mg Levothyroxine Sodium (Levothyroxine Sodium 200 Mcg Tablet) 200 mcg PO DAILY@0600 [facility] Last Admin: 03/09/24 05:36 Dose: 200 mcg Lidocaine (Lidocaine 4 % Patch Adh..Patch) 1 patch TRANSDERMA DAILY [facility]; Protocol Last Admin: 03/09/24 09:23 Dose: Not Given Lorazepam (Lorazepam 1 Mg Tablet) 1 mg PO DAILY PRN PRN Reason: Anxiety Last Admin: 03/09/24 00:41 Dose: 1 mg Magnesium Hydroxide (Milk Of Magnesia 30 Ml Oral.Susp) 30 ml PO DAILY PRN PRN Reason: Constipation Methadone HCl (Methadone Hcl 20 Mg/2 Ml Oral.Conc) 90 mg PO DAILY [facility] Last Admin: 03/09/24 09:11 Dose: 90 mg Multivitamins/Vitamin C (Multivitamin Tablet) 1 tab PO DAILY [facility] Last Admin: 03/09/24 09:10 Dose: 1 tab Nicotine (Nicotine 21 Mg Patch.Td24) 21 mg TRANSDERMA DAILY PRN PRN Reason: nicotine cravings Last Admin: 03/08/24 22:01 Dose: 21 mg Nicotine Polacrilex (Nicotine Polacrilex 2 Mg Gum) 2 mg BUCCAL Q2H PRN PRN Reason: Nicotine Cravings Last Admin: 03/09/24 09:19 Dose: 2 mg Prazosin HCl (Prazosin Hcl 1 Mg Capsule) 2 mg PO BEDTIME [facility]; Protocol Last Admin: 03/08/24 22:06 Dose: 2 mg Sertraline HCl (Sertraline Hcl 100 Mg Tablet) 100 mg PO DAILY [facility] Last Admin: 03/09/24 09:09 Dose: 100 mg Tizanidine HCl (Tizanidine Hcl 4 Mg Tablet) 4 mg PO TID [facility] Last Admin: 03/09/24 09:10 Dose: 4 mg Allergies Allergies Allergy/AdvReac Type Severity Reaction Status Date / Time Sulfa (Sulfonamide Allergy Severe Difficulty Verified 03/06/24 13:41 Antibiotics) Swallowing influenza virus vaccine, Allergy Intermediate Swelling Verified 03/06/24 13:41 specific [Influenza Virus Vacc,Specific] pneumococcal vaccine Allergy Intermediate Swelling Verified 09/12/24 13:41 [PNEUMOCOCCAL VACCINE] Assessment & Plan Assessment & Plan (1) Depression, major, severe recurrence: Status: Acute Code(s): F33.2 - Major depressive disorder, recurrent severe without psychotic features (2) PTSD (post-traumatic stress disorder): Status: Acute Code(s): F43.10 - Post-traumatic stress disorder, unspecified (3) Cocaine use disorder: Status: Acute Code(s): F14.10 - Cocaine abuse, uncomplicated (4) Opioid use disorder, moderate, in early remission, on maintenance therapy, dependence: Status: Acute Code(s): F11.21 - Opioid dependence, in remission Plan Ms. Allen is a 63 year-old woman with hx of MDD, PTSD, cocaine and opioid use disorder who called [facility] crisis, assessed at her home and brought on a sect 12a. Utox positive for methadone and cocaine. She reports frequent falls and although she reports is due to narcolepsy also reports she underwent some studies and not prescribed any medications. Will gather collateral information from ehr PCP and neurology. She reports sporadic use of cocaine, vague psychotic symptoms although she reports are intermittent and she is aware others can't see them. PLAN 03/08- continue tx. 03/09 continue tx. discussed increasing sertraline. Reason for continued inpatient stay Substantial Risk for: inability to function Time Spent With Patient Time: Total time managing care of this patient today ____ minutes.
[2024-03-09 20:00] VITALS: BP 172/84; PULSE 67; RESP 16; TEMP 36.5; O2SAT 98
[2024-03-09 20:52] VITALS: BP 172/84
[2024-03-09] MEDS: Prazosin HCL 1 MG CAPSULE 2 MG PO (20:52)
[2024-03-10] MEDS: Levothyroxine Sodium 200 MCG TABLET PO (05:43)
[2024-03-10 08:12] VITALS: BP 129/76; PULSE 61; RESP 15; TEMP 36.7; O2SAT 100
[2024-03-10] MEDS: methADONE HCl 20 MG/2 ML ORAL.CONC 90 MG PO (08:13)
[2024-03-10] MEDS: Gabapentin 100 MG CAPSULE PO (08:14)
[2024-03-10] MEDS: Multivitamin TABLET 1 TAB PO (08:14)
[2024-03-10] MEDS: amLODIPine Besylate 5 MG TABLET PO (08:14)
[2024-03-10] MEDS: lamoTRIgine 25 MG TABLET 150 MG PO (08:14)
[2024-03-10] MEDS: Calcium + Vitamin D 250 MG TABLET 500 MG PO ×2 (08:14→20:38)
[2024-03-10] MEDS: TiZANidine HCL 4 MG TABLET PO ×3 (08:15→20:39)
[2024-03-10] MEDS: Sertraline HCL 50 MG TABLET 150 MG PO (08:15)
[2024-03-10] MEDS: Donepezil HCl 5 MG TABLET PO (08:15)
[2024-03-10] MEDS: Nicotine 21 MG PATCH.TD24 TRANSDERMA (09:29)
[2024-03-10] MEDS: Nicotine Polacrilex 2 MG GUM BUCCAL ×2 (09:29→15:17)
--- NOTE | 2024-03-10 09:34 | P.PNPSI_ITS ---
Subjective Subjective Date of Service: 03/10/24 Reason For Visit: SI Subjective Notes: Conditional Voluntary Interim History: Pt slept 6hrs. She has been visible mostly after lunch. She continues to endorse depressed mood, no SI or HI. She expressed sad related to feeling lonely and having limited supports from friend or family. No VH/AH. No overt delusions. She reports she has difficulty remembering things including how she got here to the unit. she does remember that crack pipe was found in her belongings. She reports weakness- her gait is unsteady and balance is poor which contribute to high risk for falls. She denies that cocaine use is an issue but knows that needs to stop. Mental Status Exam Mental Status Exam Narrative: Appearance: wearing hospital gown, fair hygiene, in NAD Behavior: cooperative Psychomotor: no agitation or retardation noted Speech: clear, normal rate/rhythm/volume, spontaneous TP: linear TC: without psychosis, seeking treatment and help mood: depressed Affect: tearful SI: passive HI: none VH/AH: at times reports seeing shadows then realizes they are not there Delusions: no overt delusional content Insight/judgment: poor x 2. Memory/cog; alert, oriented x 4. pending MOCA and ACL. Diagnostics Vital Signs (24Hr): Vital Signs - 24 hr 03/09/24 20:00 03/09/24 20:52 03/10/24 08:12 Temperature 97.7 F 98.1 F Pulse Rate 67 61 Respiratory Rate 16 15 Blood Pressure 172/84 H 172/84 H 129/76 Pulse Oximetry 98 100 Oxygen Delivery Method Room Air Room Air BMI result Body Mass Index 34.3 Labs 03/06/24 14:13 03/08/24 07:38 Imaging Radiology Impressions: ITS Impressions Cervical Spine CT 03/06/24 15:47 IMPRESSION: No acute osseous cervical spine abnormality. Significant degenerative disease is noted at C5-6 and C6-7 as described. There is a partially visualized nodular opacity within the left lung apex measuring 1.9 x 1.4 cm. This is best seen on image #299, series #6. The lateral extent of this nodular opacity is indeterminate as it is collimated from the [id number]. Further evaluation with chest radiograph is recommended to further evaluate this. Fleischner guidelines were followed. Electronically signed by: Jose Tapia DO 03/06/2024 05:14 PM EDT RP Face CT 03/06/24 15:47 IMPRESSION: No acute facial bone fracture. Mild right frontal scalp swelling. Electronically signed by: Jose Tapia DO 03/06/2024 05:06 PM EDT RP Head CT 03/06/24 15:47 IMPRESSION: No acute intracranial pathology. Electronically signed by: Jose Tapia DO 03/06/2024 04:56 PM EDT RP Chest X-Ray 03/06/24 20:55 IMPRESSION: No active cardiopulmonary disease. Electronically signed by: Michael Salazar MD 03/06/2024 10:00 PM EDT RP Medications Medications Current Medications Acetaminophen (Acetaminophen 325 Mg Tablet) 650 mg PO Q6H PRN PRN Reason: Headache/Pain Mild Scale (1-3) Al Hydroxide/Mg Hydroxide (Magnesium Hydrox/Alum Hydrox 30 Ml Oral.Susp) 30 ml PO Q6H PRN PRN Reason: Heartburn/Nausea Amlodipine Besylate (Amlodipine Besylate 5 Mg Tablet) 5 mg PO DAILY [facility]; Protocol Last Admin: 03/10/24 08:14 Dose: 5 mg Calcium Carbonate/Cholecalciferol (Calcium + Vitamin D 250 Mg Tablet) 500 mg PO BID [facility] Last Admin: 03/10/24 08:14 Dose: 500 mg Cyclobenzaprine HCl (Cyclobenzaprine Hcl 5 Mg Tablet) 5 mg PO BEDTIME PRN PRN Reason: Pain, Moderate Donepezil HCl (Donepezil Hcl 5 Mg Tablet) 5 mg PO DAILY [facility] Last Admin: 03/10/24 08:15 Dose: 5 mg Doxepin HCl (Doxepin Hcl 25 Mg Capsule) 50 mg PO BEDTIME [facility] Last Admin: 03/09/24 20:52 Dose: 50 mg Gabapentin (Gabapentin 100 Mg Capsule) 100 mg PO DAILY [facility] Last Admin: 03/10/24 08:14 Dose: 100 mg Lamotrigine (Lamotrigine 25 Mg Tablet) 150 mg PO DAILY [facility] Last Admin: 03/10/24 08:14 Dose: 150 mg Levothyroxine Sodium (Levothyroxine Sodium 200 Mcg Tablet) 200 mcg PO DAILY@0600 [facility] Last Admin: 03/10/24 05:43 Dose: 200 mcg Lidocaine (Lidocaine 4 % Patch Adh..Patch) 1 patch TRANSDERMA DAILY [facility]; Protocol Last Admin: 03/10/24 08:12 Dose: Not Given Lorazepam (Lorazepam 1 Mg Tablet) 1 mg PO DAILY PRN PRN Reason: Anxiety Last Admin: 03/09/24 00:41 Dose: 1 mg Magnesium Hydroxide (Milk Of Magnesia 30 Ml Oral.Susp) 30 ml PO DAILY PRN PRN Reason: Constipation Methadone HCl (Methadone Hcl 20 Mg/2 Ml Oral.Conc) 90 mg PO DAILY [facility] Last Admin: 03/10/24 08:13 Dose: 90 mg Multivitamins/Vitamin C (Multivitamin Tablet) 1 tab PO DAILY [facility] Last Admin: 03/10/24 08:14 Dose: 1 tab Nicotine (Nicotine 21 Mg Patch.Td24) 21 mg TRANSDERMA DAILY PRN PRN Reason: nicotine cravings Last Admin: 03/10/24 09:29 Dose: 21 mg Nicotine Polacrilex (Nicotine Polacrilex 2 Mg Gum) 2 mg BUCCAL Q2H PRN PRN Reason: Nicotine Cravings Last Admin: 03/10/24 09:29 Dose: 2 mg Prazosin HCl (Prazosin Hcl 1 Mg Capsule) 2 mg PO BEDTIME [facility]; Protocol Last Admin: 03/09/24 20:52 Dose: 2 mg Sertraline HCl (Sertraline Hcl 50 Mg Tablet) 150 mg PO DAILY [facility] Last Admin: 03/10/24 08:15 Dose: 150 mg Tizanidine HCl (Tizanidine Hcl 4 Mg Tablet) 4 mg PO TID [facility] Last Admin: 03/10/24 08:15 Dose: 4 mg Allergies Allergies Allergy/AdvReac Type Severity Reaction Status Date / Time Sulfa (Sulfonamide Allergy Severe Difficulty Verified 03/06/24 13:41 Antibiotics) Swallowing influenza virus vaccine, Allergy Intermediate Swelling Verified 03/06/24 13:41 specific [Influenza Virus Vacc,Specific] pneumococcal vaccine Allergy Intermediate Swelling Verified 03/06/24 13:41 [PNEUMOCOCCAL VACCINE] Assessment & Plan Assessment & Plan (1) Depression, major, severe recurrence: Status: Acute Code(s): F33.2 - Major depressive disorder, recurrent severe without psychotic features (2) PTSD (post-traumatic stress disorder): Status: Acute Code(s): F43.10 - Post-traumatic stress disorder, unspecified (3) Cocaine use disorder: Status: Acute Code(s): F14.10 - Cocaine abuse, uncomplicated (4) Opioid use disorder, moderate, in early remission, on maintenance therapy, dependence: Status: Acute Code(s): F11.21 - Opioid dependence, in remission Plan Ms. Allen is a 63 year-old woman with hx of MDD, PTSD, cocaine and opioid use disorder who called [facility] crisis, assessed at her home and brought on a sect 12a. Utox positive for methadone and cocaine. She reports frequent falls and although she reports is due to narcolepsy also reports she underwent some studies and not prescribed any medications. Will gather collateral information from ehr PCP and neurology. She reports sporadic use of cocaine, vague psychotic symptoms although she reports are intermittent and she is aware others can't see them. PLAN 03/08- continue tx. 03/09 continue tx. discussed increasing sertraline. 12/08 continue tx. Reason for continued inpatient stay Substantial Risk for: inability to function Time Spent With Patient Time: Total time managing care of this patient today ____ minutes.
[2024-03-10 16:40] VITALS: BP 164/100; PULSE 72; RESP 15; TEMP 36.8; O2SAT 100
[2024-03-10 16:46] LABS: Glucose, Whole Blood 96 mg/dL (60-115)
[2024-03-10] MEDS: LORazepam 1 MG TABLET PO (16:51)
--- NOTE | 2024-03-10 16:53 | PM.EVENT ---
Event Note Date of Service: 03/10/24 Event Note: 63 year old female admitted to geriatric psychiatry with [employer] called due to unwitnessed fall. Pt is very tearful about about life situation and isnt able to say much about why she fell. She denies tripping, sob, lightheadedness, palptiations, vision, changes, headache. Denies head strike of LOC. Reports fell directly onto R hip. She was able to get up and put herself into bed. Pt is on fall precautions due to history of falls and has healing L sided periorbital ecchymosis from prior fall. CN II-XII are in tact, she has no physical complaints. 5/5 strength bue and ble, no drift. Given fall was unwitnessed, will check head ct and xr bl hip/pelvis Time Spent With Patient Time: Total time managing care of this patient today ____ minutes.
--- NOTE | 2024-03-10 16:56 | PC.NURSE ---
Pt was found in her bedroom crying in her bed. This newspaper writer asked her what was wrong, and she stated that she fell on her right hip when trying to get up. This newspaper writer took VS-see MAR for details. BG=96. Rapid response called. Provider ordered a R hip xray, and pt declined this imaging. I am fine, I know it . Pt continued to be tearful. She stated that she felt alone. This newspaper writer suggested that she come out of her room, as she has been in there all day with her ipad. Pt stated understanding. Pt was then brought her w/c and she came out for dinner and was no longer tearful.
[2024-03-10 20:35] VITALS: BP 147/62; PULSE 63; RESP 16; TEMP 36.3; O2SAT 99
[2024-03-10] MEDS: Doxepin HCl 25 MG CAPSULE 50 MG PO ×2 (20:36→20:38)
[2024-03-10 20:38] VITALS: BP 147/62
[2024-03-10] MEDS: Prazosin HCL 1 MG CAPSULE 2 MG PO (20:38)
[2024-03-11] MEDS: Levothyroxine Sodium 200 MCG TABLET PO (05:25)
[2024-03-11] MEDS: methADONE HCl 20 MG/2 ML ORAL.CONC 90 MG PO (08:13)
[2024-03-11 08:16] VITALS: BP 129/82; PULSE 71; RESP 15; TEMP 36.6; O2SAT 100
[2024-03-11] MEDS: TiZANidine HCL 4 MG TABLET PO ×3 (08:17→20:14)
[2024-03-11] MEDS: Gabapentin 100 MG CAPSULE PO (08:18)
[2024-03-11] MEDS: Multivitamin TABLET 1 TAB PO (08:18)
[2024-03-11] MEDS: Calcium + Vitamin D 250 MG TABLET 500 MG PO ×2 (08:18→20:14)
[2024-03-11] MEDS: Donepezil HCl 5 MG TABLET PO (08:18)
[2024-03-11] MEDS: Sertraline HCL 50 MG TABLET 150 MG PO (08:18)
[2024-03-11] MEDS: amLODIPine Besylate 5 MG TABLET PO (08:18)
[2024-03-11] MEDS: lamoTRIgine 25 MG TABLET 150 MG PO (08:19)
--- NOTE | 2024-03-11 12:49 | HO.PSYEVENT ---
Event Note Date of Service: 03/11/24 Time Spent With Patient Time: Total time managing care of this patient today ____ minutes.
[2024-03-11] MEDS: Nicotine 21 MG PATCH.TD24 TRANSDERMA (15:17)
[2024-03-11] MEDS: Nicotine Polacrilex 2 MG GUM BUCCAL ×3 (15:17→22:07)
--- NOTE | 2024-03-11 15:20 | HO.PSYCHPN ---
Subjective Subjective Date of Service: 03/12/24 Reason For Visit: SI Subjective Notes: Conditional Voluntary Interim History: Pt reports anxiety at around midday and then close to bedtime. She asks if ativan can be increased. We discussed that if we increase here while we see effects of increase in antidepressant, does not mean that she will be discharged on higher dose given concern of abuse or misuse as she continues to work on her recovery. We also discussed higher dose of ativan affecting her gait and episodes of somnolence-- she is aware if increased sedation noted dose will be reduced. She reports episodic SI, seems at times conditional to what she is doing at the moment. She reports concern about her gait. She denies that she has not engage with OP providers despite their report that pt is usually not home nor answer her questions. She also minimizes substance use reporting that stigma is following her despite the fact that she was positive for cocaine when she came. Diagnostics Vital Signs (24Hr): Vital Signs - 24 hr 03/10/24 16:40 03/10/24 20:35 03/10/24 20:38 Temperature 98.2 F 97.3 F Pulse Rate 72 63 Respiratory Rate 15 16 Blood Pressure 164/100 H 147/62 H 147/62 H Pulse Oximetry 100 99 Oxygen Delivery Method Room Air Room Air 03/11/24 08:16 Temperature 97.8 F Pulse Rate 71 Respiratory Rate 15 Blood Pressure 129/82 Pulse Oximetry 100 Oxygen Delivery Method Room Air BMI result Body Mass Index 34.3 Labs 03/06/24 14:13 03/08/24 07:38 Labs: Laboratory Results - last 48 hr 03/10/24 16:42 POC Glucose 96 Imaging Radiology Impressions: ITS Impressions Cervical Spine CT 03/06/24 15:47 IMPRESSION: No acute osseous cervical spine abnormality. Significant degenerative disease is noted at C5-6 and C6-7 as described. There is a partially visualized nodular opacity within the left lung apex measuring 1.9 x 1.4 cm. This is best seen on image #299, series #6. The lateral extent of this nodular opacity is indeterminate as it is collimated from the [id number]. Further evaluation with chest radiograph is recommended to further evaluate this. Fleischner guidelines were followed. Electronically signed by: Jose Tapia DO 03/06/2024 05:14 PM EDT RP Face CT 03/06/24 15:47 IMPRESSION: No acute facial bone fracture. Mild right frontal scalp swelling. Electronically signed by: Jose Tapia DO 03/06/2024 05:06 PM EDT RP Head CT 03/06/24 15:47 IMPRESSION: No acute intracranial pathology. Electronically signed by: Jose Tapia DO 03/06/2024 04:56 PM EDT RP Chest X-Ray 03/06/24 20:55 IMPRESSION: No active cardiopulmonary disease. Electronically signed by: Michael Salazar MD 03/06/2024 10:00 PM EDT RP Head CT 03/11/24 08:50 IMPRESSION: Normal CT scan of the head. No evidence of acute territorial infarct or hemorrhage. Electronically signed by: Kiko Christina MD 03/11/2024 12:16 PM EDT RP Hip/Pelvis X-Ray 03/11/24 08:55 IMPRESSION: 1. Moderate degenerative changes in the bilateral hips. 2. Diffuse demineralization. Additional imaging with CT scan or MRI should be considered for better visualization as these modalities are much more sensitive for detection of fracture or other underlying pathology. Electronically signed by: Antonia Ellis MD 03/11/2024 01:12 PM EDT RP Medications Medications Current Medications Acetaminophen (Acetaminophen 325 Mg Tablet) 650 mg PO Q6H PRN PRN Reason: Headache/Pain Mild Scale (1-3) Al Hydroxide/Mg Hydroxide (Magnesium Hydrox/Alum Hydrox 30 Ml Oral.Susp) 30 ml PO Q6H PRN PRN Reason: Heartburn/Nausea Amlodipine Besylate (Amlodipine Besylate 5 Mg Tablet) 5 mg PO DAILY [facility]; Protocol Last Admin: 03/11/24 08:18 Dose: 5 mg Calcium Carbonate/Cholecalciferol (Calcium + Vitamin D 250 Mg Tablet) 500 mg PO BID [facility] Last Admin: 03/11/24 08:18 Dose: 500 mg Cyclobenzaprine HCl (Cyclobenzaprine Hcl 5 Mg Tablet) 5 mg PO BEDTIME PRN PRN Reason: Pain, Moderate Donepezil HCl (Donepezil Hcl 5 Mg Tablet) 5 mg PO DAILY [facility] Last Admin: 03/11/24 08:18 Dose: 5 mg Doxepin HCl (Doxepin Hcl 25 Mg Capsule) 50 mg PO BEDTIME [facility] Last Admin: 03/10/24 20:38 Dose: 50 mg Gabapentin (Gabapentin 100 Mg Capsule) 100 mg PO DAILY [facility] Last Admin: 03/11/24 08:18 Dose: 100 mg Lamotrigine (Lamotrigine 25 Mg Tablet) 150 mg PO DAILY [facility] Last Admin: 03/11/24 08:19 Dose: 150 mg Levothyroxine Sodium (Levothyroxine Sodium 200 Mcg Tablet) 200 mcg PO DAILY@0600 [facility] Last Admin: 03/11/24 05:25 Dose: 200 mcg Lidocaine (Lidocaine 4 % Patch Adh..Patch) 1 patch TRANSDERMA DAILY [facility]; Protocol Last Admin: 03/11/24 08:19 Dose: Not Given Lorazepam (Lorazepam 1 Mg Tablet) 1 mg PO DAILY PRN PRN Reason: Anxiety Last Admin: 03/10/24 16:51 Dose: 1 mg Magnesium Hydroxide (Milk Of Magnesia 30 Ml Oral.Susp) 30 ml PO DAILY PRN PRN Reason: Constipation Methadone HCl (Methadone Hcl 20 Mg/2 Ml Oral.Conc) 90 mg PO DAILY [facility] Last Admin: 03/11/24 08:13 Dose: 90 mg Multivitamins/Vitamin C (Multivitamin Tablet) 1 tab PO DAILY [facility] Last Admin: 03/11/24 08:18 Dose: 1 tab Nicotine (Nicotine 21 Mg Patch.Td24) 21 mg TRANSDERMA DAILY PRN PRN Reason: nicotine cravings Last Admin: 03/11/24 15:17 Dose: 21 mg Nicotine Polacrilex (Nicotine Polacrilex 2 Mg Gum) 2 mg BUCCAL Q2H PRN PRN Reason: Nicotine Cravings Last Admin: 03/11/24 15:17 Dose: 2 mg Prazosin HCl (Prazosin Hcl 1 Mg Capsule) 2 mg PO BEDTIME [facility]; Protocol Last Admin: 03/10/24 20:38 Dose: 2 mg Sertraline HCl (Sertraline Hcl 50 Mg Tablet) 150 mg PO DAILY [facility] Last Admin: 03/11/24 08:18 Dose: 150 mg Tizanidine HCl (Tizanidine Hcl 4 Mg Tablet) 4 mg PO TID [facility] Last Admin: 03/11/24 15:13 Dose: 4 mg Allergies Allergies Allergy/AdvReac Type Severity Reaction Status Date / Time Sulfa (Sulfonamide Allergy Severe Difficulty Verified 03/06/24 13:41 Antibiotics) Swallowing influenza virus vaccine, Allergy Intermediate Swelling Verified 03/06/24 13:41 specific [Influenza Virus Vacc,Specific] pneumococcal vaccine Allergy Intermediate Swelling Verified 03/06/24 13:41 [PNEUMOCOCCAL VACCINE] Assessment & Plan Assessment & Plan (1) Depression, major, severe recurrence: Status: Acute Code(s): F33.2 - Major depressive disorder, recurrent severe without psychotic features (2) PTSD (post-traumatic stress disorder): Status: Acute Code(s): F43.10 - Post-traumatic stress disorder, unspecified (3) Cocaine use disorder: Status: Acute Code(s): F14.10 - Cocaine abuse, uncomplicated (4) Opioid use disorder, moderate, in early remission, on maintenance therapy, dependence: Status: Acute Code(s): F11.21 - Opioid dependence, in remission Plan Ms. Allen is a 63 year-old woman with hx of MDD, PTSD, cocaine and opioid use disorder who called [facility] crisis, assessed at her home and brought on a sect 12a. Utox positive for methadone and cocaine. She reports frequent falls and although she reports is due to narcolepsy also reports she underwent some studies and not prescribed any medications. Will gather collateral information from ehr PCP and neurology. She reports sporadic use of cocaine, vague psychotic symptoms although she reports are intermittent and she is aware others can't see them. PLAN 03/08- continue tx. 03/09 continue tx. discussed increasing sertraline. 03/10 continue tx. 03/12 continue tx. increase while on the unit ativan 1mg po BID prn, but will hold dose if pt over sedated. will also change gabapentin and lamictal to bedtime. Reason for continued inpatient stay Substantial Risk for: inability to function Time Spent With Patient Time: Total time managing care of this patient today ____ minutes.
[2024-03-11 20:00] VITALS: BP 142/80; PULSE 63; RESP 14; TEMP 36; O2SAT 99
[2024-03-11] MEDS: Doxepin HCl 25 MG CAPSULE 50 MG PO (20:14)
[2024-03-11 20:15] VITALS: BP 142/80
[2024-03-11] MEDS: Prazosin HCL 1 MG CAPSULE 2 MG PO (20:15)
[2024-03-11] MEDS: Magnesium Hydrox/Alum Hydrox 30 ML ORAL.SUSP PO (23:46)
[2024-03-12] MEDS: LORazepam 1 MG TABLET PO ×2 (00:15→20:31)
[2024-03-12] MEDS: Levothyroxine Sodium 200 MCG TABLET PO (05:56)
[2024-03-12 08:00] VITALS: BP 128/72; PULSE 66; RESP 18; TEMP 36.7; O2SAT 100
[2024-03-12] MEDS: methADONE HCl 20 MG/2 ML ORAL.CONC 90 MG PO (08:48)
[2024-03-12] MEDS: lamoTRIgine 25 MG TABLET 150 MG PO (08:50)
[2024-03-12] MEDS: TiZANidine HCL 4 MG TABLET PO ×3 (08:51→20:31)
[2024-03-12] MEDS: Multivitamin TABLET 1 TAB PO (08:52)
[2024-03-12] MEDS: amLODIPine Besylate 5 MG TABLET PO (08:52)
[2024-03-12] MEDS: Sertraline HCL 50 MG TABLET 150 MG PO (08:53)
[2024-03-12] MEDS: Gabapentin 100 MG CAPSULE PO (08:53)
[2024-03-12] MEDS: Calcium + Vitamin D 250 MG TABLET 500 MG PO ×2 (08:53→20:31)
[2024-03-12] MEDS: Donepezil HCl 5 MG TABLET PO (08:53)
[2024-03-12] MEDS: Nicotine 21 MG PATCH.TD24 TRANSDERMA (09:02)
[2024-03-12] MEDS: Nicotine Polacrilex 2 MG GUM BUCCAL ×3 (09:02→20:30)
--- NOTE | 2024-03-12 11:22 | P.PNPSI_ITS ---
Subjective Subjective Date of Service: 03/12/24 Reason For Visit: SI Subjective Notes: Conditional Voluntary Diagnostics Vital Signs (24Hr): Vital Signs - 24 hr 03/11/24 20:00 03/11/24 20:15 Temperature 96.8 F Pulse Rate 63 Respiratory Rate 14 Blood Pressure 142/80 H 142/80 H Pulse Oximetry 99 Oxygen Delivery Method Room Air BMI result Body Mass Index 34.3 Labs 03/06/24 14:13 03/08/24 07:38 Labs: Laboratory Results - last 48 hr 03/10/24 16:42 POC Glucose 96 Imaging Radiology Impressions: ITS Impressions Cervical Spine CT 03/06/24 15:47 IMPRESSION: No acute osseous cervical spine abnormality. Significant degenerative disease is noted at C5-6 and C6-7 as described. There is a partially visualized nodular opacity within the left lung apex measuring 1.9 x 1.4 cm. This is best seen on image #299, series #6. The lateral extent of this nodular opacity is indeterminate as it is collimated from the [id number]. Further evaluation with chest radiograph is recommended to further evaluate this. Fleischner guidelines were followed. Electronically signed by: Jose Tapia DO 03/06/2024 05:14 PM EDT RP Face CT 03/06/24 15:47 IMPRESSION: No acute facial bone fracture. Mild right frontal scalp swelling. Electronically signed by: Jose Tapia DO 03/06/2024 05:06 PM EDT RP Head CT 03/06/24 15:47 IMPRESSION: No acute intracranial pathology. Electronically signed by: Jose Tapia DO 03/06/2024 04:56 PM EDT RP Chest X-Ray 03/06/24 20:55 IMPRESSION: No active cardiopulmonary disease. Electronically signed by: Michael Salazar MD 03/06/2024 10:00 PM EDT RP Head CT 03/11/24 08:50 IMPRESSION: Normal CT scan of the head. No evidence of acute territorial infarct or hemorrhage. Electronically signed by: Kiko Christina MD 03/11/2024 12:16 PM EDT RP Hip/Pelvis X-Ray 03/11/24 08:55 IMPRESSION: 1. Moderate degenerative changes in the bilateral hips. 2. Diffuse demineralization. Additional imaging with CT scan or MRI should be considered for better visualization as these modalities are much more sensitive for detection of fracture or other underlying pathology. Electronically signed by: Antonia Ellis MD 03/11/2024 01:12 PM EDT RP Hip CT 03/11/24 18:30 IMPRESSION: 1. No acute fracture or malalignment. 2. 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 Electronically signed by: Israel Maurer MD 03/11/2024 11:05 PM EDT RP Medications Medications Current Medications Acetaminophen (Acetaminophen 325 Mg Tablet) 650 mg PO Q6H PRN PRN Reason: Headache/Pain Mild Scale (1-3) Al Hydroxide/Mg Hydroxide (Magnesium Hydrox/Alum Hydrox 30 Ml Oral.Susp) 30 ml PO Q6H PRN PRN Reason: Heartburn/Nausea Last Admin: 03/11/24 23:46 Dose: 30 ml Amlodipine Besylate (Amlodipine Besylate 5 Mg Tablet) 5 mg PO DAILY [facility]; Protocol Last Admin: 03/12/24 08:52 Dose: 5 mg Calcium Carbonate/Cholecalciferol (Calcium + Vitamin D 250 Mg Tablet) 500 mg PO BID [facility] Last Admin: 03/12/24 08:53 Dose: 500 mg Cyclobenzaprine HCl (Cyclobenzaprine Hcl 5 Mg Tablet) 5 mg PO BEDTIME PRN PRN Reason: Pain, Moderate Donepezil HCl (Donepezil Hcl 5 Mg Tablet) 5 mg PO DAILY [facility] Last Admin: 03/12/24 08:53 Dose: 5 mg Doxepin HCl (Doxepin Hcl 25 Mg Capsule) 50 mg PO BEDTIME [facility] Last Admin: 03/11/24 20:14 Dose: 50 mg Gabapentin (Gabapentin 100 Mg Capsule) 100 mg PO DAILY [facility] Last Admin: 03/12/24 08:53 Dose: 100 mg Lamotrigine (Lamotrigine 25 Mg Tablet) 150 mg PO DAILY [facility] Last Admin: 03/12/24 08:50 Dose: 150 mg Levothyroxine Sodium (Levothyroxine Sodium 200 Mcg Tablet) 200 mcg PO DAILY@0600 [facility] Last Admin: 03/12/24 05:56 Dose: 200 mcg Lidocaine (Lidocaine 4 % Patch Adh..Patch) 1 patch TRANSDERMA DAILY [facility]; Protocol Last Admin: 03/12/24 09:01 Dose: Not Given Magnesium Hydroxide (Milk Of Magnesia 30 Ml Oral.Susp) 30 ml PO DAILY PRN PRN Reason: Constipation Methadone HCl (Methadone Hcl 20 Mg/2 Ml Oral.Conc) 90 mg PO DAILY [facility] Last Admin: 03/12/24 08:48 Dose: 90 mg Multivitamins/Vitamin C (Multivitamin Tablet) 1 tab PO DAILY [facility] Last Admin: 03/12/24 08:52 Dose: 1 tab Nicotine (Nicotine 21 Mg Patch.Td24) 21 mg TRANSDERMA DAILY PRN PRN Reason: nicotine cravings Last Admin: 03/12/24 09:02 Dose: 21 mg Nicotine Polacrilex (Nicotine Polacrilex 2 Mg Gum) 2 mg BUCCAL Q2H PRN PRN Reason: Nicotine Cravings Last Admin: 03/12/24 09:02 Dose: 2 mg Prazosin HCl (Prazosin Hcl 1 Mg Capsule) 2 mg PO BEDTIME [facility]; Protocol Last Admin: 03/11/24 20:15 Dose: 2 mg Sertraline HCl (Sertraline Hcl 50 Mg Tablet) 150 mg PO DAILY [facility] Last Admin: 03/12/24 08:53 Dose: 150 mg Tizanidine HCl (Tizanidine Hcl 4 Mg Tablet) 4 mg PO TID [facility] Last Admin: 03/12/24 08:51 Dose: 4 mg Allergies Allergies Allergy/AdvReac Type Severity Reaction Status Date / Time Sulfa (Sulfonamide Allergy Severe Difficulty Verified 03/06/24 13:41 Antibiotics) Swallowing influenza virus vaccine, Allergy Intermediate Swelling Verified 03/06/24 13:41 specific [Influenza Virus Vacc,Specific] pneumococcal vaccine Allergy Intermediate Swelling Verified 03/06/24 13:41 [PNEUMOCOCCAL VACCINE] Assessment & Plan Assessment & Plan (1) Depression, major, severe recurrence: Status: Acute Code(s): F33.2 - Major depressive disorder, recurrent severe without psychotic features (2) PTSD (post-traumatic stress disorder): Status: Acute Code(s): F43.10 - Post-traumatic stress disorder, unspecified (3) Cocaine use disorder: Status: Acute Code(s): F14.10 - Cocaine abuse, uncomplicated (4) Opioid use disorder, moderate, in early remission, on maintenance therapy, dependence: Status: Acute Code(s): F11.21 - Opioid dependence, in remission Plan Ms. Allen is a 63 year-old woman with hx of MDD, PTSD, cocaine and opioid use disorder who called [facility] crisis, assessed at her home and brought on a sect 12a. Utox positive for methadone and cocaine. She reports frequent falls and although she reports is due to narcolepsy also reports she underwent some studies and not prescribed any medications. Will gather collateral information from ehr PCP and neurology. She reports sporadic use of cocaine, vague psychotic symptoms although she reports are intermittent and she is aware others can't see them. PLAN 03/08- continue tx. 03/09 continue tx. discussed increasing sertraline. 12/08 continue tx. Time Spent With Patient Time: Total time managing care of this patient today ____ minutes.
[2024-03-12 20:00] VITALS: BP 127/83; PULSE 65; RESP 18; TEMP 36.6; O2SAT 94
[2024-03-12] MEDS: Doxepin HCl 25 MG CAPSULE 50 MG PO (20:31)
[2024-03-12] MEDS: Prazosin HCL 1 MG CAPSULE 2 MG PO (20:31)
--- NOTE | 2024-03-12 23:20 | PC.NURSE ---
This filing writer informed patient that staff would need to take unit ipad at 2100 (as decided by team during day per shift report). Patient irritable and tearful, this is a violation of my rights. I have PTSD, I need to use the ipad during the night. This filing writer offered different coping tools to help patient sleep, and patient declined, requested 3 day notice. Patient signed 3 day, reports that she does not feel safe on the unit without having the ipad.
[2024-03-13 08:00] VITALS: BP 173/95; PULSE 70; RESP 18; TEMP 36.4; O2SAT 100
[2024-03-13] MEDS: methADONE HCl 20 MG/2 ML ORAL.CONC 90 MG PO (08:07)
[2024-03-13] MEDS: Nicotine 21 MG PATCH.TD24 TRANSDERMA (08:14)
[2024-03-13] MEDS: amLODIPine Besylate 5 MG TABLET PO (08:15)
[2024-03-13] MEDS: Levothyroxine Sodium 200 MCG TABLET PO (08:15)
[2024-03-13] MEDS: lamoTRIgine 25 MG TABLET 150 MG PO (08:15)
[2024-03-13] MEDS: Nicotine Polacrilex 2 MG GUM BUCCAL ×3 (08:15→20:23)
[2024-03-13] MEDS: Donepezil HCl 5 MG TABLET PO (08:16)
[2024-03-13] MEDS: Multivitamin TABLET 1 TAB PO (08:16)
[2024-03-13] MEDS: Sertraline HCL 50 MG TABLET 150 MG PO (08:16)
[2024-03-13] MEDS: TiZANidine HCL 4 MG TABLET PO ×3 (08:16→20:23)
[2024-03-13] MEDS: Gabapentin 100 MG CAPSULE PO ×2 (08:16→20:22)
[2024-03-13] MEDS: Calcium + Vitamin D 250 MG TABLET 500 MG PO ×2 (08:16→20:22)
[2024-03-13 09:15] VITALS: BMI 37.5
[2024-03-13 11:32] VITALS: PULSE 70; O2SAT 100
--- NOTE | 2024-03-13 12:20 | HO.PSYCHPN ---
Subjective Subjective Date of Service: 03/13/24 Reason For Visit: SI Subjective Notes: Conditional Voluntary Interim History: Pt upset about policy to use ipad on the unit. Initially demanding to be discharged, but when approach about this, she retracted statement to want to leave. She minimizes substance use and declines any referrals for dual dx stating this will only exacerbate people's bias towards her. She reports intermittent suicidal ideation, no plan or intent. She reports she feels as if she is losing herself, due to periods of getting more confused2. She is also worried about her unsteady gait and frequent falls. We discussed PT eval. we also discussed concern that protective services had about a gun in her apartment- pt reports this is not a gun, that it is a lobsterman and she is open to have landlord and police enter her apartment prior to her returning there. Pt has periods of dysphoric and deregulated mood in relationship to interpersonal dynamics, sense of rejection Medication Compliance: Yes Diagnostics Vital Signs (24Hr): Vital Signs - 24 hr 03/12/24 20:00 03/13/24 08:00 03/13/24 11:32 Temperature 97.8 F 97.5 F Pulse Rate 65 70 70 Respiratory Rate 18 18 Blood Pressure 127/83 173/95 H Pulse Oximetry 94 100 100 Oxygen Delivery Method Room Air Room Air BMI result Body Mass Index 37.5 Labs 03/06/24 14:13 03/08/24 07:38 Imaging Radiology Impressions: ITS Impressions Cervical Spine CT 03/06/24 15:47 IMPRESSION: No acute osseous cervical spine abnormality. Significant degenerative disease is noted at C5-6 and C6-7 as described. There is a partially visualized nodular opacity within the left lung apex measuring 1.9 x 1.4 cm. This is best seen on image #299, series #6. The lateral extent of this nodular opacity is indeterminate as it is collimated from the [id number]. Further evaluation with chest radiograph is recommended to further evaluate this. Fleischner guidelines were followed. Electronically signed by: Jose Tapia DO 03/06/2024 05:14 PM EDT RP Face CT 03/06/24 15:47 IMPRESSION: No acute facial bone fracture. Mild right frontal scalp swelling. Electronically signed by: Jose Tapia DO 03/06/2024 05:06 PM EDT RP Head CT 03/06/24 15:47 IMPRESSION: No acute intracranial pathology. Electronically signed by: Jose Tapia DO 03/06/2024 04:56 PM EDT RP Chest X-Ray 03/06/24 20:55 IMPRESSION: No active cardiopulmonary disease. Electronically signed by: Michael Salazar MD 03/06/2024 10:00 PM EDT RP Head CT 03/11/24 08:50 IMPRESSION: Normal CT scan of the head. No evidence of acute territorial infarct or hemorrhage. Electronically signed by: Kiko Christina MD 03/11/2024 12:16 PM EDT RP Hip/Pelvis X-Ray 03/11/24 08:55 IMPRESSION: 1. Moderate degenerative changes in the bilateral hips. 2. Diffuse demineralization. Additional imaging with CT scan or MRI should be considered for better visualization as these modalities are much more sensitive for detection of fracture or other underlying pathology. Electronically signed by: Antonia Ellis MD 03/11/2024 01:12 PM EDT RP Hip CT 03/11/24 18:30 IMPRESSION: 1. No acute fracture or malalignment. 2. 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 Electronically signed by: Israel Maurer MD 03/11/2024 11:05 PM EDT RP Medications Medications Current Medications Acetaminophen (Acetaminophen 325 Mg Tablet) 650 mg PO Q6H PRN PRN Reason: Headache/Pain Mild Scale (1-3) Al Hydroxide/Mg Hydroxide (Magnesium Hydrox/Alum Hydrox 30 Ml Oral.Susp) 30 ml PO Q6H PRN PRN Reason: Heartburn/Nausea Last Admin: 03/11/24 23:46 Dose: 30 ml Amlodipine Besylate (Amlodipine Besylate 5 Mg Tablet) 5 mg PO DAILY [facility]; Protocol Last Admin: 03/13/24 08:15 Dose: 5 mg Calcium Carbonate/Cholecalciferol (Calcium + Vitamin D 250 Mg Tablet) 500 mg PO BID [facility] Last Admin: 03/13/24 08:16 Dose: 500 mg Cyclobenzaprine HCl (Cyclobenzaprine Hcl 5 Mg Tablet) 5 mg PO BEDTIME PRN PRN Reason: Pain, Moderate Donepezil HCl (Donepezil Hcl 5 Mg Tablet) 5 mg PO DAILY [facility] Last Admin: 03/13/24 08:16 Dose: 5 mg Doxepin HCl (Doxepin Hcl 25 Mg Capsule) 50 mg PO BEDTIME [facility] Last Admin: 03/12/24 20:31 Dose: 50 mg Gabapentin (Gabapentin 100 Mg Capsule) 100 mg PO BEDTIME [facility] Lamotrigine (Lamotrigine 25 Mg Tablet) 150 mg PO BEDTIME [facility] Levothyroxine Sodium (Levothyroxine Sodium 200 Mcg Tablet) 200 mcg PO DAILY@0600 [facility] Last Admin: 03/13/24 08:15 Dose: 200 mcg Lidocaine (Lidocaine 4 % Patch Adh..Patch) 1 patch TRANSDERMA DAILY [facility]; Protocol Last Admin: 03/13/24 08:16 Dose: Not Given Lorazepam (Lorazepam 1 Mg Tablet) 1 mg PO BID PRN PRN Reason: Anxiety Magnesium Hydroxide (Milk Of Magnesia 30 Ml Oral.Susp) 30 ml PO DAILY PRN PRN Reason: Constipation Methadone HCl (Methadone Hcl 20 Mg/2 Ml Oral.Conc) 90 mg PO DAILY [facility] Last Admin: 03/13/24 08:07 Dose: 90 mg Multivitamins/Vitamin C (Multivitamin Tablet) 1 tab PO DAILY [facility] Last Admin: 03/13/24 08:16 Dose: 1 tab Nicotine (Nicotine 21 Mg Patch.Td24) 21 mg TRANSDERMA DAILY PRN PRN Reason: nicotine cravings Last Admin: 03/13/24 08:14 Dose: 21 mg Nicotine Polacrilex (Nicotine Polacrilex 2 Mg Gum) 2 mg BUCCAL Q2H PRN PRN Reason: Nicotine Cravings Last Admin: 03/13/24 08:15 Dose: 2 mg Prazosin HCl (Prazosin Hcl 1 Mg Capsule) 2 mg PO BEDTIME [facility]; Protocol Last Admin: 03/12/24 20:31 Dose: 2 mg Sertraline HCl (Sertraline Hcl 50 Mg Tablet) 150 mg PO DAILY [facility] Last Admin: 03/13/24 08:16 Dose: 150 mg Tizanidine HCl (Tizanidine Hcl 4 Mg Tablet) 4 mg PO TID [facility] Last Admin: 03/13/24 08:16 Dose: 4 mg Allergies Allergies Allergy/AdvReac Type Severity Reaction Status Date / Time Sulfa (Sulfonamide Allergy Severe Difficulty Verified 03/06/24 13:41 Antibiotics) Swallowing influenza virus vaccine, Allergy Intermediate Swelling Verified 03/06/24 13:41 specific [Influenza Virus Vacc,Specific] pneumococcal vaccine Allergy Intermediate Swelling Verified 03/06/24 13:41 [PNEUMOCOCCAL VACCINE] Assessment & Plan Assessment & Plan (1) Depression, major, severe recurrence: Status: Acute Code(s): F33.2 - Major depressive disorder, recurrent severe without psychotic features (2) PTSD (post-traumatic stress disorder): Status: Acute Code(s): F43.10 - Post-traumatic stress disorder, unspecified (3) Cocaine use disorder: Status: Acute Code(s): F14.10 - Cocaine abuse, uncomplicated (4) Opioid use disorder, moderate, in early remission, on maintenance therapy, dependence: Status: Acute Code(s): F11.21 - Opioid dependence, in remission Plan Ms. Allen is a 63 year-old woman with hx of MDD, PTSD, cocaine and opioid use disorder who called [facility] crisis, assessed at her home and brought on a sect 12a. Utox positive for methadone and cocaine. She reports frequent falls and although she reports is due to narcolepsy also reports she underwent some studies and not prescribed any medications. Will gather collateral information from ehr PCP and neurology. She reports sporadic use of cocaine, vague psychotic symptoms although she reports are intermittent and she is aware others can't see them. PLAN 03/08- continue tx. 03/09 continue tx. discussed increasing sertraline. 03/10 continue tx. 03/12 continue tx. increase while on the unit ativan 1mg po BID prn, but will hold dose if pt over sedated. will also change gabapentin and lamictal to bedtime. 03/13 continue tx. PT consult Reason for continued inpatient stay Substantial Risk for: inability to function Time Spent With Patient Time: Total time managing care of this patient today ____ minutes.
[2024-03-13] MEDS: LORazepam 1 MG TABLET PO ×2 (12:38→20:22)
[2024-03-13 19:58] VITALS: BP 114/72; PULSE 107; RESP 18; TEMP 36.6; O2SAT 96
[2024-03-13] MEDS: Prazosin HCL 1 MG CAPSULE 2 MG PO (20:22)
[2024-03-13] MEDS: Doxepin HCl 25 MG CAPSULE 50 MG PO (20:22)
[2024-03-14] MEDS: Nicotine Polacrilex 2 MG GUM BUCCAL ×7 (06:03→23:37)
[2024-03-14] MEDS: Levothyroxine Sodium 200 MCG TABLET PO (06:03)
[2024-03-14] MEDS: Calcium + Vitamin D 250 MG TABLET 500 MG PO ×2 (08:21→21:31)
[2024-03-14] MEDS: Sertraline HCL 50 MG TABLET 150 MG PO (08:21)
[2024-03-14 08:22] VITALS: BP 134/73; PULSE 66; RESP 16; TEMP 36.2; O2SAT 97
[2024-03-14] MEDS: amLODIPine Besylate 5 MG TABLET PO (08:22)
[2024-03-14] MEDS: Donepezil HCl 5 MG TABLET PO (08:22)
[2024-03-14] MEDS: methADONE HCl 20 MG/2 ML ORAL.CONC 90 MG PO (08:22)
[2024-03-14] MEDS: TiZANidine HCL 4 MG TABLET PO ×3 (08:22→21:31)
[2024-03-14] MEDS: Multivitamin TABLET 1 TAB PO (08:22)
[2024-03-14] MEDS: Nicotine 21 MG PATCH.TD24 TRANSDERMA (08:29)
--- NOTE | 2024-03-14 11:36 | P.PNPSI_ITS ---
Subjective Subjective Date of Service: 03/14/24 Reason For Visit: SI Interim History: Bertha very open and forthcoming about stressors including current housing issues, frequent falls, wanting a service dog to assist her. Reports she is trialing Lorazepam changes made yesterday and finding them helpful thus far. Medication Compliance: Yes Side effects from medications: No Attending Groups: Intermittent Review of Systems Acute medical concerns: No Medical Review of Systems: unchanged Review of Systems Review of Systems concerns about falls Mental Status Exam Mental Status Exam Patient Appearance: Appropriate Patient Orientation: Person, Place and Situation Level of Consciousness: Alert Patient Behavior: Talkative and Good Eye Contact Mood Description: Apprehensive Affect Description: Apprehensive Patient Cognition Impaired: No Ability to Follow Directions: Good Speech Pattern: Spontaneous Speech Memory Description: Episodic Impaired Hallucinations: None Delusions: Not Present Perceptual Disturbances: Depersonalization Thought Process: Rumination (worry) Thought Content: positive for Circumstantial and positive for Suicidal Ideation (denies) Depressive Symptoms: Thoughts of /Suicide (denies) Judgement: Fair Diagnostics Vital Signs (24Hr): Vital Signs - 24 hr 03/13/24 19:58 03/14/24 08:22 03/14/24 08:22 Temperature 97.8 F 97.1 F Pulse Rate 107 H 66 Respiratory Rate 18 16 Blood Pressure 114/72 134/73 134/73 Pulse Oximetry 96 97 Oxygen Delivery Method Room Air Room Air BMI result Body Mass Index 37.5 Labs 03/06/24 14:13 03/08/24 07:38 Imaging Radiology Impressions: ITS Impressions Cervical Spine CT 03/06/24 15:47 IMPRESSION: No acute osseous cervical spine abnormality. Significant degenerative disease is noted at C5-6 and C6-7 as described. There is a partially visualized nodular opacity within the left lung apex measuring 1.9 x 1.4 cm. This is best seen on image #299, series #6. The lateral extent of this nodular opacity is indeterminate as it is collimated from the [id number]. Further evaluation with chest radiograph is recommended to further evaluate this. Fleischner guidelines were followed. Electronically signed by: Jose Tapia DO 03/06/2024 05:[address] 03/06/24 15:47 IMPRESSION: No acute facial bone fracture. Mild right frontal scalp swelling. Electronically signed by: Jose Tapia DO 03/06/2024 05:06 PM EDT RP Head CT 03/06/24 15:47 IMPRESSION: No acute intracranial pathology. Electronically signed by: Jose Tapia DO 03/06/2024 04:56 PM EDT RP Chest X-Ray 03/06/24 20:55 IMPRESSION: No active cardiopulmonary disease. Electronically signed by: Michael Salazar MD 03/06/2024 10:00 PM EDT RP Head CT 03/11/24 08:50 IMPRESSION: Normal CT scan of the head. No evidence of acute territorial infarct or hemorrhage. Electronically signed by: Kiko Christina MD 03/11/2024 12:16 PM EDT RP Hip/Pelvis X-Ray 03/11/24 08:55 IMPRESSION: 1. Moderate degenerative changes in the bilateral hips. 2. Diffuse demineralization. Additional imaging with CT scan or MRI should be considered for better visualization as these modalities are much more sensitive for detection of fracture or other underlying pathology. Electronically signed by: Antonia Ellis MD 03/11/2024 01:12 PM EDT RP Hip CT 03/11/24 18:30 IMPRESSION: 1. No acute fracture or malalignment. 2. 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 Electronically signed by: Israel Maurer MD 03/11/2024 11:05 PM EDT RP Medications Medications Current Medications Acetaminophen (Acetaminophen 325 Mg Tablet) 650 mg PO Q6H PRN PRN Reason: Headache/Pain Mild Scale (1-3) Al Hydroxide/Mg Hydroxide (Magnesium Hydrox/Alum Hydrox 30 Ml Oral.Susp) 30 ml PO Q6H PRN PRN Reason: Heartburn/Nausea Last Admin: 03/11/24 23:46 Dose: 30 ml Amlodipine Besylate (Amlodipine Besylate 5 Mg Tablet) 5 mg PO DAILY [facility]; Protocol Last Admin: 03/14/24 08:22 Dose: 5 mg Calcium Carbonate/Cholecalciferol (Calcium + Vitamin D 250 Mg Tablet) 500 mg PO BID [facility] Last Admin: 03/14/24 08:21 Dose: 500 mg Cyclobenzaprine HCl (Cyclobenzaprine Hcl 5 Mg Tablet) 5 mg PO BEDTIME PRN PRN Reason: Pain, Moderate Donepezil HCl (Donepezil Hcl 5 Mg Tablet) 5 mg PO DAILY [facility] Last Admin: 03/14/24 08:22 Dose: 5 mg Doxepin HCl (Doxepin Hcl 25 Mg Capsule) 50 mg PO BEDTIME [facility] Last Admin: 03/13/24 20:22 Dose: 50 mg Gabapentin (Gabapentin 100 Mg Capsule) 100 mg PO BEDTIME [facility] Last Admin: 03/13/24 20:22 Dose: 100 mg Lamotrigine (Lamotrigine 25 Mg Tablet) 150 mg PO BEDTIME [facility] Levothyroxine Sodium (Levothyroxine Sodium 200 Mcg Tablet) 200 mcg PO DAILY@0600 [facility] Last Admin: 03/14/24 06:03 Dose: 200 mcg Lidocaine (Lidocaine 4 % Patch Adh..Patch) 1 patch TRANSDERMA DAILY [facility]; Protocol Last Admin: 03/14/24 08:25 Dose: Not Given Lorazepam (Lorazepam 1 Mg Tablet) 1 mg PO BID PRN PRN Reason: Anxiety Last Admin: 03/13/24 20:22 Dose: 1 mg Magnesium Hydroxide (Milk Of Magnesia 30 Ml Oral.Susp) 30 ml PO DAILY PRN PRN Reason: Constipation Methadone HCl (Methadone Hcl 20 Mg/2 Ml Oral.Conc) 90 mg PO DAILY [facility] Last Admin: 03/14/24 08:22 Dose: 90 mg Multivitamins/Vitamin C (Multivitamin Tablet) 1 tab PO DAILY [facility] Last Admin: 03/14/24 08:22 Dose: 1 tab Nicotine (Nicotine 21 Mg Patch.Td24) 21 mg TRANSDERMA DAILY PRN PRN Reason: nicotine cravings Last Admin: 03/14/24 08:29 Dose: 21 mg Nicotine Polacrilex (Nicotine Polacrilex 2 Mg Gum) 2 mg BUCCAL Q2H PRN PRN Reason: Nicotine Cravings Last Admin: 03/14/24 08:21 Dose: 2 mg Prazosin HCl (Prazosin Hcl 1 Mg Capsule) 2 mg PO BEDTIME [facility]; Protocol Last Admin: 03/13/24 20:22 Dose: 2 mg Sertraline HCl (Sertraline Hcl 50 Mg Tablet) 150 mg PO DAILY [facility] Last Admin: 03/14/24 08:21 Dose: 150 mg Tizanidine HCl (Tizanidine Hcl 4 Mg Tablet) 4 mg PO TID [facility] Last Admin: 03/14/24 08:22 Dose: 4 mg Allergies Allergies Allergy/AdvReac Type Severity Reaction Status Date / Time Sulfa (Sulfonamide Allergy Severe Difficulty Verified 03/06/24 13:41 Antibiotics) Swallowing influenza virus vaccine, Allergy Intermediate Swelling Verified 03/06/24 13:41 specific [Influenza Virus Vacc,Specific] pneumococcal vaccine Allergy Intermediate Swelling Verified 03/06/24 13:41 [PNEUMOCOCCAL VACCINE] Assessment & Plan Assessment & Plan (1) Depression, major, severe recurrence: Status: Acute Code(s): F33.2 - Major depressive disorder, recurrent severe without psychotic features (2) PTSD (post-traumatic stress disorder): Status: Acute Code(s): F43.10 - Post-traumatic stress disorder, unspecified (3) Cocaine use disorder: Status: Acute Code(s): F14.10 - Cocaine abuse, uncomplicated (4) Opioid use disorder, moderate, in early remission, on maintenance therapy, dependence: Status: Acute Code(s): F11.21 - Opioid dependence, in remission Plan Ms. Allen is a 63 year-old woman with hx of MDD, PTSD, cocaine and opioid use disorder who called [facility] crisis, assessed at her home and brought on a sect 12a. Utox positive for methadone and cocaine. She reports frequent falls and although she reports is due to narcolepsy also reports she underwent some studies and not prescribed any medications. Will gather collateral information from ehr PCP and neurology. She reports sporadic use of cocaine, vague psychotic symptoms although she reports are intermittent and she is aware others can't see them. PLAN 03/08- continue tx. 03/09 continue tx. discussed increasing sertraline. 03/10 continue tx. 03/12 continue tx. increase while on the unit ativan 1mg po BID prn, but will hold dose if pt over sedated. will also change gabapentin and lamictal to bedtime. 03/13 continue tx. PT consult 03/14 continue tx Reason for continued inpatient stay Substantial Risk for: rapid decompensation and med/psych decompensation Time Spent With Patient Time: Total time managing care of this patient today ____ minutes.
[2024-03-14] MEDS: LORazepam 1 MG TABLET PO ×2 (15:44→21:31)
[2024-03-14 20:00] VITALS: BP 143/88; PULSE 66; RESP 18; TEMP 36.4; O2SAT 97
[2024-03-14] MEDS: Gabapentin 100 MG CAPSULE PO (21:31)
[2024-03-14] MEDS: Doxepin HCl 25 MG CAPSULE 50 MG PO (21:31)
[2024-03-14] MEDS: lamoTRIgine 25 MG TABLET 150 MG PO (21:31)
[2024-03-14] MEDS: Prazosin HCL 1 MG CAPSULE 2 MG PO (21:31)
[2024-03-15] MEDS: Acetaminophen 325 MG TABLET 650 MG PO (00:09)
[2024-03-15] MEDS: Cyclobenzaprine HCl 5 MG TABLET PO (00:09)
[2024-03-15] MEDS: Levothyroxine Sodium 200 MCG TABLET PO (05:12)
[2024-03-15] MEDS: Nicotine Polacrilex 2 MG GUM BUCCAL ×5 (05:18→21:34)
[2024-03-15 08:00] VITALS: BP 135/84; PULSE 70; RESP 19; TEMP 36.7; O2SAT 100
[2024-03-15] MEDS: Nicotine 21 MG PATCH.TD24 TRANSDERMA (08:44)
[2024-03-15] MEDS: methADONE HCl 20 MG/2 ML ORAL.CONC 90 MG PO (08:45)
[2024-03-15] MEDS: Sertraline HCL 50 MG TABLET 150 MG PO (08:48)
[2024-03-15] MEDS: Multivitamin TABLET 1 TAB PO (08:49)
[2024-03-15] MEDS: Calcium + Vitamin D 250 MG TABLET 500 MG PO ×2 (08:49→21:33)
[2024-03-15] MEDS: amLODIPine Besylate 5 MG TABLET PO (08:49)
[2024-03-15] MEDS: TiZANidine HCL 4 MG TABLET PO ×3 (08:49→21:33)
[2024-03-15] MEDS: Donepezil HCl 5 MG TABLET PO (08:49)
--- NOTE | 2024-03-15 10:45 | P.PNPSI_ITS ---
Subjective Subjective Date of Service: 03/15/24 Reason For Visit: SI Subjective Notes: Conditional Voluntary Interim History: Patient was seen and discussed in rounds today. Records and plans were reviewed. She has been stable and continues to be anxious about discharge planning and housing. She has been a little labile at times and tearful. She states that she has trouble sleeping and is requesting a slight increase of her Ativan which I will do to 1.5 mg and leave the 1 mg p.r.n. for daytime use. No other changes were made. Eating adequately. Review of Systems Review of Systems Poor sleep Yes all other systems are reviewed and are negative Mental Status Exam Mental Status Exam Patient Appearance: Appropriate Patient Orientation: Person, Place and Situation Level of Consciousness: Alert Patient Behavior: Talkative and Good Eye Contact Mood Description: Apprehensive Affect Description: Apprehensive Patient Cognition Impaired: No Ability to Follow Directions: Good Speech Pattern: Spontaneous Speech Memory Description: Episodic Impaired Hallucinations: None Delusions: Not Present Perceptual Disturbances: Depersonalization Thought Process: Rumination (worry) Thought Content: positive for Circumstantial and positive for Suicidal Ideation (denies) Depressive Symptoms: Thoughts of /Suicide (denies) Judgement: Fair Diagnostics Vital Signs (24Hr): Vital Signs - 24 hr 03/14/24 20:00 03/15/24 08:00 Temperature 97.5 F 98.1 F Pulse Rate 66 70 Respiratory Rate 18 19 Blood Pressure 143/88 H 135/84 Pulse Oximetry 97 100 Oxygen Delivery Method Room Air Room Air BMI result Body Mass Index 37.5 Labs 03/06/24 14:13 03/08/24 07:38 Imaging Radiology Impressions: ITS Impressions Cervical Spine CT 03/06/24 15:47 IMPRESSION: No acute osseous cervical spine abnormality. Significant degenerative disease is noted at C5-6 and C6-7 as described. There is a partially visualized nodular opacity within the left lung apex measuring 1.9 x 1.4 cm. This is best seen on image #299, series #6. The lateral extent of this nodular opacity is indeterminate as it is collimated from the [id number]. Further evaluation with chest radiograph is recommended to further evaluate this. Fleischner guidelines were followed. Electronically signed by: Jose Tapia DO 03/06/2024 05:[address] 03/06/24 15:47 IMPRESSION: No acute facial bone fracture. Mild right frontal scalp swelling. Electronically signed by: Jose Tapia DO 03/06/2024 05:06 PM EDT RP Head CT 03/06/24 15:47 IMPRESSION: No acute intracranial pathology. Electronically signed by: Jose Tapia DO 03/06/2024 04:56 PM EDT RP Chest X-Ray 03/06/24 20:55 IMPRESSION: No active cardiopulmonary disease. Electronically signed by: Michael Salazar MD 03/06/2024 10:00 PM EDT RP Head CT 03/11/24 08:50 IMPRESSION: Normal CT scan of the head. No evidence of acute territorial infarct or hemorrhage. Electronically signed by: Kiko Christina MD 03/11/2024 12:16 PM EDT RP Hip/Pelvis X-Ray 03/11/24 08:55 IMPRESSION: 1. Moderate degenerative changes in the bilateral hips. 2. Diffuse demineralization. Additional imaging with CT scan or MRI should be considered for better visualization as these modalities are much more sensitive for detection of fracture or other underlying pathology. Electronically signed by: Antonia Ellis MD 03/11/2024 01:12 PM EDT RP Hip CT 03/11/24 18:30 IMPRESSION: 1. No acute fracture or malalignment. 2. 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 Electronically signed by: Israel Maurer MD 03/11/2024 11:05 PM EDT RP Medications Medications Current Medications Acetaminophen (Acetaminophen 325 Mg Tablet) 650 mg PO Q6H PRN PRN Reason: Headache/Pain Mild Scale (1-3) Last Admin: 03/15/24 00:09 Dose: 650 mg Al Hydroxide/Mg Hydroxide (Magnesium Hydrox/Alum Hydrox 30 Ml Oral.Susp) 30 ml PO Q6H PRN PRN Reason: Heartburn/Nausea Last Admin: 03/11/24 23:46 Dose: 30 ml Amlodipine Besylate (Amlodipine Besylate 5 Mg Tablet) 5 mg PO DAILY [facility]; Protocol Last Admin: 03/15/24 08:49 Dose: 5 mg Calcium Carbonate/Cholecalciferol (Calcium + Vitamin D 250 Mg Tablet) 500 mg PO BID [facility] [place] Last Admin: 03/15/24 08:49 Dose: 500 mg Cyclobenzaprine HCl (Cyclobenzaprine Hcl 5 Mg Tablet) 5 mg PO BEDTIME PRN PRN Reason: Pain, Moderate Last Admin: 03/15/24 00:09 Dose: 5 mg Donepezil HCl (Donepezil Hcl 5 Mg Tablet) 5 mg PO DAILY [facility] [place] Last Admin: 03/15/24 08:49 Dose: 5 mg Doxepin HCl (Doxepin Hcl 25 Mg Capsule) 50 mg PO BEDTIME [facility] Last Admin: 03/14/24 21:31 Dose: 50 mg Gabapentin (Gabapentin 100 Mg Capsule) 100 mg PO BEDTIME [facility] [place] Last Admin: 03/14/24 21:31 Dose: 100 mg Lamotrigine (Lamotrigine 25 Mg Tablet) 150 mg PO BEDTIME [facility] [place] Last Admin: 03/14/24 21:31 Dose: 150 mg Levothyroxine Sodium (Levothyroxine Sodium 200 Mcg Tablet) 200 mcg PO DAILY@0600 [facility] [place] Last Admin: 03/15/24 05:12 Dose: 200 mcg Lidocaine (Lidocaine 4 % Patch Adh..Patch) 1 patch TRANSDERMA DAILY [facility] [place]; Protocol Last Admin: 03/15/24 09:08 Dose: Not Given Lorazepam (Lorazepam 1 Mg Tablet) 1 mg PO BID PRN PRN Reason: Anxiety Last Admin: 03/14/24 21:31 Dose: 1 mg Magnesium Hydroxide (Milk Of Magnesia 30 Ml Oral.Susp) 30 ml PO DAILY PRN PRN Reason: Constipation Methadone HCl (Methadone Hcl 20 Mg/2 Ml Oral.Conc) 90 mg PO DAILY [facility] [place] Last Admin: 03/15/24 08:45 Dose: 90 mg Multivitamins/Vitamin C (Multivitamin Tablet) 1 tab PO DAILY [facility] [place] Last Admin: 03/15/24 08:49 Dose: 1 tab Nicotine (Nicotine 21 Mg Patch.Td24) 21 mg TRANSDERMA DAILY PRN PRN Reason: nicotine cravings Last Admin: 03/15/24 08:44 Dose: 21 mg Nicotine Polacrilex (Nicotine Polacrilex 2 Mg Gum) 2 mg BUCCAL Q2H PRN PRN Reason: Nicotine Cravings Last Admin: 03/15/24 08:44 Dose: 2 mg Prazosin HCl (Prazosin Hcl 1 Mg Capsule) 2 mg PO BEDTIME [facility]; Protocol Last Admin: 03/14/24 21:31 Dose: 2 mg Sertraline HCl (Sertraline Hcl 50 Mg Tablet) 150 mg PO DAILY [facility] Last Admin: 03/15/24 08:48 Dose: 150 mg Tizanidine HCl (Tizanidine Hcl 4 Mg Tablet) 4 mg PO TID [facility] Last Admin: 03/15/24 08:49 Dose: 4 mg Allergies Allergies Allergy/AdvReac Type Severity Reaction Status Date / Time Sulfa (Sulfonamide Allergy Severe Difficulty Verified 03/06/24 13:41 Antibiotics) Swallowing influenza virus vaccine, Allergy Intermediate Swelling Verified 03/06/24 13:41 specific [Influenza Virus Vacc,Specific] pneumococcal vaccine Allergy Intermediate Swelling Verified 03/06/24 13:41 [PNEUMOCOCCAL VACCINE] Assessment & Plan Assessment & Plan (1) Depression, major, severe recurrence: Status: Acute Code(s): F33.2 - Major depressive disorder, recurrent severe without psychotic features (2) PTSD (post-traumatic stress disorder): Status: Acute Code(s): F43.10 - Post-traumatic stress disorder, unspecified (3) Cocaine use disorder: Status: Acute Code(s): F14.10 - Cocaine abuse, uncomplicated (4) Opioid use disorder, moderate, in early remission, on maintenance therapy, dependence: Status: Acute Code(s): F11.21 - Opioid dependence, in remission Plan Ms. Allen is a 63 year-old woman with hx of MDD, PTSD, cocaine and opioid use disorder who called [facility] crisis, assessed at her home and brought on a sect 12a. Utox positive for methadone and cocaine. She reports frequent falls and although she reports is due to narcolepsy also reports she underwent some studies and not prescribed any medications. Will gather collateral information from ehr PCP and neurology. She reports sporadic use of cocaine, vague psychotic symptoms although she reports are intermittent and she is aware others can't see them. PLAN 03/08- continue tx. 03/09 continue tx. discussed increasing sertraline. 03/10 continue tx. 03/12 continue tx. increase while on the unit ativan 1mg po BID prn, but will hold dose if pt over sedated. will also change gabapentin and lamictal to bedtime. 03/13 continue tx. PT consult 03/14 continue tx 03/15: Continue current regimen and plans. Increase nighttime Ativan to 1.5 mg p.r.n. Patient educated on: medication risk/benefits Reason for continued inpatient stay Substantial Risk for: med/psych decompensation Time Spent With Patient Time: Total time managing care of this patient today ____ minutes.
[2024-03-15] MEDS: LORazepam 1 MG TABLET PO (13:13)
[2024-03-15 20:00] VITALS: BP 103/64; PULSE 72; RESP 18; TEMP 36.4; O2SAT 95
[2024-03-15] MEDS: Doxepin HCl 25 MG CAPSULE 50 MG PO (21:33)
[2024-03-15] MEDS: lamoTRIgine 25 MG TABLET 150 MG PO (21:33)
[2024-03-15] MEDS: Prazosin HCL 1 MG CAPSULE 2 MG PO (21:33)
[2024-03-15] MEDS: LORazepam 0.5 MG TABLET 1.5 MG PO (21:34)
[2024-03-15] MEDS: Gabapentin 100 MG CAPSULE PO (21:34)
[2024-03-16] MEDS: Cyclobenzaprine HCl 5 MG TABLET PO (01:28)
[2024-03-16] MEDS: Nicotine Polacrilex 2 MG GUM BUCCAL ×6 (01:30→23:58)
[2024-03-16] MEDS: Levothyroxine Sodium 200 MCG TABLET PO (05:51)
[2024-03-16 07:56] VITALS: BP 163/85; PULSE 77; RESP 15; TEMP 36.2; O2SAT 100
[2024-03-16] MEDS: methADONE HCl 20 MG/2 ML ORAL.CONC 90 MG PO (07:58)
[2024-03-16] MEDS: Nicotine 21 MG PATCH.TD24 TRANSDERMA (08:00)
[2024-03-16] MEDS: Multivitamin TABLET 1 TAB PO (08:00)
[2024-03-16] MEDS: Calcium + Vitamin D 250 MG TABLET 500 MG PO ×2 (08:01→19:42)
[2024-03-16] MEDS: amLODIPine Besylate 5 MG TABLET PO (08:01)
[2024-03-16] MEDS: Donepezil HCl 5 MG TABLET PO (08:01)
[2024-03-16] MEDS: Sertraline HCL 50 MG TABLET 150 MG PO (08:01)
[2024-03-16] MEDS: TiZANidine HCL 4 MG TABLET PO ×3 (08:01→19:41)
--- NOTE | 2024-03-16 08:08 | P.PNPSI_ITS ---
Subjective Subjective Date of Service: 03/16/24 Reason For Visit: SI Subjective Notes: Conditional Voluntary Interim History: Patient was seen and discussed in rounds today. Records and plans were reviewed. She again wanted to discuss her Ativan and she was under the impression that I had increased it by 1.5 mg which was not true. She agreed upon getting 1 mg at noon and 1.5 mg at night. No SI. No behavioral issues. Eating and sleeping adequately now. No other changes were made Review of Systems Review of Systems Yes all other systems are reviewed and are negative Mental Status Exam Mental Status Exam Patient Appearance: Appropriate Patient Orientation: Person, Place and Situation Level of Consciousness: Alert Patient Behavior: Talkative and Good Eye Contact Mood Description: Apprehensive Affect Description: Apprehensive Patient Cognition Impaired: No Ability to Follow Directions: Good Speech Pattern: Spontaneous Speech Memory Description: Episodic Impaired Hallucinations: None Delusions: Not Present Perceptual Disturbances: Depersonalization Thought Process: Rumination (worry) Thought Content: positive for Circumstantial and positive for Suicidal Ideation (denies) Depressive Symptoms: Thoughts of /Suicide (denies) Judgement: Fair Diagnostics Vital Signs (24Hr): Vital Signs - 24 hr 03/15/24 20:00 03/16/24 07:56 Temperature 97.5 F 97.1 F Pulse Rate 72 77 Respiratory Rate 18 15 Blood Pressure 103/64 163/85 H Pulse Oximetry 95 100 Oxygen Delivery Method Room Air Room Air BMI result Body Mass Index 37.5 Labs 03/06/24 14:13 03/08/24 07:38 Imaging Radiology Impressions: ITS Impressions Cervical Spine CT 03/06/24 15:47 IMPRESSION: No acute osseous cervical spine abnormality. Significant degenerative disease is noted at C5-6 and C6-7 as described. There is a partially visualized nodular opacity within the left lung apex measuring 1.9 x 1.4 cm. This is best seen on image #299, series #6. The lateral extent of this nodular opacity is indeterminate as it is collimated from the [id number]. Further evaluation with chest radiograph is recommended to further evaluate this. Fleischner guidelines were followed. Electronically signed by: Jose Tapia DO 03/06/2024 05:[address] 03/06/24 15:47 IMPRESSION: No acute facial bone fracture. Mild right frontal scalp swelling. Electronically signed by: Jose Tapia DO 03/06/2024 05:06 PM EDT RP Head CT 03/06/24 15:47 IMPRESSION: No acute intracranial pathology. Electronically signed by: Jose Tapia DO 03/06/2024 04:56 PM EDT RP Chest X-Ray 03/06/24 20:55 IMPRESSION: No active cardiopulmonary disease. Electronically signed by: Michael Salazar MD 03/06/2024 10:00 PM EDT RP Head CT 03/11/24 08:50 IMPRESSION: Normal CT scan of the head. No evidence of acute territorial infarct or hemorrhage. Electronically signed by: Kiko Christina MD 03/11/2024 12:16 PM EDT RP Hip/Pelvis X-Ray 03/11/24 08:55 IMPRESSION: 1. Moderate degenerative changes in the bilateral hips. 2. Diffuse demineralization. Additional imaging with CT scan or MRI should be considered for better visualization as these modalities are much more sensitive for detection of fracture or other underlying pathology. Electronically signed by: Antonia Ellis MD 03/11/2024 01:12 PM EDT RP Hip CT 03/11/24 18:30 IMPRESSION: 1. No acute fracture or malalignment. 2. 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 Electronically signed by: Israel Maurer MD 03/11/2024 11:05 PM EDT RP Medications Medications Current Medications Acetaminophen (Acetaminophen 325 Mg Tablet) 650 mg PO Q6H PRN PRN Reason: Headache/Pain Mild Scale (1-3) Last Admin: 03/15/24 00:09 Dose: 650 mg Al Hydroxide/Mg Hydroxide (Magnesium Hydrox/Alum Hydrox 30 Ml Oral.Susp) 30 ml PO Q6H PRN PRN Reason: Heartburn/Nausea Last Admin: 03/11/24 23:46 Dose: 30 ml Amlodipine Besylate (Amlodipine Besylate 5 Mg Tablet) 5 mg PO DAILY [facility]; Protocol Last Admin: 03/16/24 08:01 Dose: 5 mg Calcium Carbonate/Cholecalciferol (Calcium + Vitamin D 250 Mg Tablet) 500 mg PO BID [facility] Last Admin: 03/16/24 08:01 Dose: 500 mg Cyclobenzaprine HCl (Cyclobenzaprine Hcl 5 Mg Tablet) 5 mg PO BEDTIME PRN PRN Reason: Pain, Moderate Last Admin: 03/16/24 01:28 Dose: 5 mg Donepezil HCl (Donepezil Hcl 5 Mg Tablet) 5 mg PO DAILY [facility] Last Admin: 03/16/24 08:01 Dose: 5 mg Doxepin HCl (Doxepin Hcl 25 Mg Capsule) 50 mg PO BEDTIME [facility] Last Admin: 03/15/24 21:33 Dose: 50 mg Gabapentin (Gabapentin 100 Mg Capsule) 100 mg PO BEDTIME [facility] Last Admin: 03/15/24 21:34 Dose: 100 mg Lamotrigine (Lamotrigine 25 Mg Tablet) 150 mg PO BEDTIME [facility] Last Admin: 03/15/24 21:33 Dose: 150 mg Levothyroxine Sodium (Levothyroxine Sodium 200 Mcg Tablet) 200 mcg PO DAILY@0600 [facility] Last Admin: 03/16/24 05:51 Dose: 200 mcg Lidocaine (Lidocaine 4 % Patch Adh..Patch) 1 patch TRANSDERMA DAILY [facility]; Protocol Last Admin: 03/15/24 09:08 Dose: Not Given Lorazepam (Lorazepam 0.5 Mg Tablet) 1.5 mg PO BEDTIME PRN PRN Reason: Sleep Last Admin: 03/15/24 21:34 Dose: 1.5 mg Lorazepam (Lorazepam 1 Mg Tablet) 1 mg PO DAILY PRN PRN Reason: Anxiety Magnesium Hydroxide (Milk Of Magnesia 30 Ml Oral.Susp) 30 ml PO DAILY PRN PRN Reason: Constipation Methadone HCl (Methadone Hcl 20 Mg/2 Ml Oral.Conc) 90 mg PO DAILY [facility] Last Admin: 03/16/24 07:58 Dose: 90 mg Multivitamins/Vitamin C (Multivitamin Tablet) 1 tab PO DAILY [facility] Last Admin: 03/16/24 08:00 Dose: 1 tab Nicotine (Nicotine 21 Mg Patch.Td24) 21 mg TRANSDERMA DAILY PRN PRN Reason: nicotine cravings Last Admin: 03/16/24 08:00 Dose: 21 mg Nicotine Polacrilex (Nicotine Polacrilex 2 Mg Gum) 2 mg BUCCAL Q2H PRN PRN Reason: Nicotine Cravings Last Admin: 03/16/24 01:30 Dose: 2 mg Prazosin HCl (Prazosin Hcl 1 Mg Capsule) 2 mg PO BEDTIME [facility]; Protocol Last Admin: 03/15/24 21:33 Dose: 2 mg Sertraline HCl (Sertraline Hcl 50 Mg Tablet) 150 mg PO DAILY [facility] Last Admin: 03/16/24 08:01 Dose: 150 mg Tizanidine HCl (Tizanidine Hcl 4 Mg Tablet) 4 mg PO TID [facility] Last Admin: 03/16/24 08:01 Dose: 4 mg Allergies Allergies Allergy/AdvReac Type Severity Reaction Status Date / Time Sulfa (Sulfonamide Allergy Severe Difficulty Verified 03/06/24 13:41 Antibiotics) Swallowing influenza virus vaccine, Allergy Intermediate Swelling Verified 03/06/24 13:41 specific [Influenza Virus Vacc,Specific] pneumococcal vaccine Allergy Intermediate Swelling Verified 03/06/24 13:41 [PNEUMOCOCCAL VACCINE] Assessment & Plan Assessment & Plan (1) Depression, major, severe recurrence: Status: Acute Code(s): F33.2 - Major depressive disorder, recurrent severe without psychotic features (2) PTSD (post-traumatic stress disorder): Status: Acute Code(s): F43.10 - Post-traumatic stress disorder, unspecified (3) Cocaine use disorder: Status: Acute Code(s): F14.10 - Cocaine abuse, uncomplicated (4) Opioid use disorder, moderate, in early remission, on maintenance therapy, dependence: Status: Acute Code(s): F11.21 - Opioid dependence, in remission Plan Ms. Allen is a 63 year-old woman with hx of MDD, PTSD, cocaine and opioid use disorder who called [facility] crisis, assessed at her home and brought on a sect 12a. Utox positive for methadone and cocaine. She reports frequent falls and although she reports is due to narcolepsy also reports she underwent some studies and not prescribed any medications. Will gather collateral information from ehr PCP and neurology. She reports sporadic use of cocaine, vague psychotic symptoms although she reports are intermittent and she is aware others can't see them. PLAN 03/08- continue tx. 03/09 continue tx. discussed increasing sertraline. 03/10 continue tx. 03/12 continue tx. increase while on the unit ativan 1mg po BID prn, but will hold dose if pt over sedated. will also change gabapentin and lamictal to bedtime. 03/13 continue tx. PT consult 03/14 continue tx 03/15: Continue current regimen and plans. Increase nighttime Ativan to 1.5 mg p.r.n. 03/16: Continue current regimen and plans Patient educated on: medication risk/benefits Reason for continued inpatient stay Substantial Risk for: med/psych decompensation Time Spent With Patient Time: Total time managing care of this patient today ____ minutes.
[2024-03-16] MEDS: LORazepam 1 MG TABLET PO (14:13)
[2024-03-16] MEDS: Gabapentin 100 MG CAPSULE PO (19:41)
[2024-03-16 19:42] VITALS: BP 122/77
[2024-03-16] MEDS: Prazosin HCL 1 MG CAPSULE 2 MG PO (19:42)
[2024-03-16] MEDS: Doxepin HCl 25 MG CAPSULE 50 MG PO (19:43)
[2024-03-16] MEDS: lamoTRIgine 25 MG TABLET 150 MG PO (19:43)
[2024-03-16 20:00] VITALS: BP 122/77; PULSE 60; RESP 16; TEMP 36.7; O2SAT 96
[2024-03-16] MEDS: LORazepam 0.5 MG TABLET 1.5 MG PO (20:50)
[2024-03-17] MEDS: Acetaminophen 325 MG TABLET 650 MG PO (04:28)
[2024-03-17] MEDS: Nicotine Polacrilex 2 MG GUM BUCCAL ×4 (04:32→22:15)
[2024-03-17] MEDS: Levothyroxine Sodium 200 MCG TABLET PO (05:39)
[2024-03-17 08:25] VITALS: BP 159/90; PULSE 71; RESP 18; TEMP 36.1; O2SAT 100
--- NOTE | 2024-03-17 08:50 | HO.PSYCHPN ---
Subjective Subjective Date of Service: 03/17/24 Reason For Visit: SI Subjective Notes: Conditional Voluntary Interim History: Pt slept most of the night. She is presenting as very sedated with increase of ativan, which we had discussed will be decreased in any case as group home has more risks than benefits given risk of abuse or misuse as she continues working on her recovery. She denies SI/HI. She is able to walk with much less difficulty. No behavioral concerns. She declines additional referrals for substance use, but agrees to continue OP psych tx Medication Compliance: Yes Review of Systems Review of Systems Poor sleep Yes all other systems are reviewed and are negative Mental Status Exam Mental Status Exam Narrative: Appearance: wearing hospital gown, fair hygiene, in NAD Behavior: cooperative Psychomotor: no agitation or retardation noted Speech: clear, normal rate/rhythm/volume, spontaneous TP: linear TC: without psychosis, seeking treatment and help mood: better Affect: brighter, non labile SI: none HI: none VH/AH: at times reports seeing shadows then realizes they are not there Delusions: no overt delusional content Insight/judgment: poor x 2. Memory/cog; alert, oriented x 4. MOCA 19/30, ACL 4.4 Diagnostics Vital Signs (24Hr): Vital Signs - 24 hr 03/16/24 19:42 03/16/24 20:00 03/17/24 08:25 Temperature 98.1 F 96.9 F Pulse Rate 60 71 Respiratory Rate 16 18 Blood Pressure 122/77 122/77 159/90 H Pulse Oximetry 96 100 Oxygen Delivery Method Room Air Room Air BMI result Body Mass Index 37.5 Labs 03/06/24 14:13 03/08/24 07:38 Imaging Radiology Impressions: ITS Impressions Cervical Spine CT 03/06/24 15:47 IMPRESSION: No acute osseous cervical spine abnormality. Significant degenerative disease is noted at C5-6 and C6-7 as described. There is a partially visualized nodular opacity within the left lung apex measuring 1.9 x 1.4 cm. This is best seen on image #299, series #6. The lateral extent of this nodular opacity is indeterminate as it is collimated from the [id number]. Further evaluation with chest radiograph is recommended to further evaluate this. Fleischner guidelines were followed. Electronically signed by: Jose Tapia DO 03/06/2024 05:14 PM EDT RP Face CT 03/06/24 15:47 IMPRESSION: No acute facial bone fracture. Mild right frontal scalp swelling. Electronically signed by: Jose Tapia DO 03/06/2024 05:06 PM EDT RP Head CT 03/06/24 15:47 IMPRESSION: No acute intracranial pathology. Electronically signed by: Jose Tapia DO 03/06/2024 04:56 PM EDT RP Chest X-Ray 03/06/24 20:55 IMPRESSION: No active cardiopulmonary disease. Electronically signed by: Michael Salazar MD 03/06/2024 10:00 PM EDT RP Head CT 03/11/24 08:50 IMPRESSION: Normal CT scan of the head. No evidence of acute territorial infarct or hemorrhage. Electronically signed by: Kiko Christina MD 03/11/2024 12:16 PM EDT RP Hip/Pelvis X-Ray 03/11/24 08:55 IMPRESSION: 1. Moderate degenerative changes in the bilateral hips. 2. Diffuse demineralization. Additional imaging with CT scan or MRI should be considered for better visualization as these modalities are much more sensitive for detection of fracture or other underlying pathology. Electronically signed by: Antonia Ellis MD 03/11/2024 01:12 PM EDT RP Hip CT 03/11/24 18:30 IMPRESSION: 1. No acute fracture or malalignment. 2. 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 Electronically signed by: Israel Maurer MD 03/11/2024 11:05 PM EDT RP Medications Medications Current Medications Acetaminophen (Acetaminophen 325 Mg Tablet) 650 mg PO Q6H PRN PRN Reason: Headache/Pain Mild Scale (1-3) Last Admin: 03/17/24 04:28 Dose: 650 mg Al Hydroxide/Mg Hydroxide (Magnesium Hydrox/Alum Hydrox 30 Ml Oral.Susp) 30 ml PO Q6H PRN PRN Reason: Heartburn/Nausea Last Admin: 03/11/24 23:46 Dose: 30 ml Amlodipine Besylate (Amlodipine Besylate 5 Mg Tablet) 5 mg PO DAILY [facility]; Protocol Last Admin: 03/16/24 08:01 Dose: 5 mg Calcium Carbonate/Cholecalciferol (Calcium + Vitamin D 250 Mg Tablet) 500 mg PO BID [facility] Last Admin: 03/16/24 19:42 Dose: 500 mg Cyclobenzaprine HCl (Cyclobenzaprine Hcl 5 Mg Tablet) 5 mg PO BEDTIME PRN PRN Reason: Pain, Moderate Last Admin: 03/16/24 01:28 Dose: 5 mg Donepezil HCl (Donepezil Hcl 5 Mg Tablet) 5 mg PO DAILY [facility] Last Admin: 03/16/24 08:01 Dose: 5 mg Doxepin HCl (Doxepin Hcl 25 Mg Capsule) 50 mg PO BEDTIME [facility] Last Admin: 03/16/24 19:43 Dose: 50 mg Gabapentin (Gabapentin 100 Mg Capsule) 100 mg PO BEDTIME [facility] Last Admin: 03/16/24 19:41 Dose: 100 mg Hydrochlorothiazide (Hydrochlorothiazide 12.5 Mg Tablet) 12.5 mg PO DAILY [facility]; Protocol Lamotrigine (Lamotrigine 25 Mg Tablet) 150 mg PO BEDTIME [facility] Last Admin: 03/16/24 19:43 Dose: 150 mg Levothyroxine Sodium (Levothyroxine Sodium 200 Mcg Tablet) 200 mcg PO DAILY@0600 [facility] Last Admin: 03/17/24 05:39 Dose: 200 mcg Lidocaine (Lidocaine 4 % Patch Adh..Patch) 1 patch TRANSDERMA DAILY [facility]; Protocol Last Admin: 03/16/24 10:50 Dose: Not Given Lorazepam (Lorazepam 0.5 Mg Tablet) 0.5 mg PO BID PRN PRN Reason: Anxiety Magnesium Hydroxide (Milk Of Magnesia 30 Ml Oral.Susp) 30 ml PO DAILY PRN PRN Reason: Constipation Methadone HCl (Methadone Hcl 20 Mg/2 Ml Oral.Conc) 90 mg PO DAILY [facility] Last Admin: 03/16/24 07:58 Dose: 90 mg Multivitamins/Vitamin C (Multivitamin Tablet) 1 tab PO DAILY [facility] Last Admin: 03/16/24 08:00 Dose: 1 tab Nicotine (Nicotine 21 Mg Patch.Td24) 21 mg TRANSDERMA DAILY PRN PRN Reason: nicotine cravings Last Admin: 03/16/24 08:00 Dose: 21 mg Nicotine Polacrilex (Nicotine Polacrilex 2 Mg Gum) 2 mg BUCCAL Q2H PRN PRN Reason: Nicotine Cravings Last Admin: 03/17/24 04:32 Dose: 2 mg Prazosin HCl (Prazosin Hcl 1 Mg Capsule) 2 mg PO BEDTIME [facility]; Protocol Last Admin: 03/16/24 19:42 Dose: 2 mg Sertraline HCl (Sertraline Hcl 50 Mg Tablet) 150 mg PO DAILY [facility] Last Admin: 03/16/24 08:01 Dose: 150 mg Tizanidine HCl (Tizanidine Hcl 4 Mg Tablet) 4 mg PO TID [facility] Last Admin: 03/16/24 19:41 Dose: 4 mg Allergies Allergies Allergy/AdvReac Type Severity Reaction Status Date / Time Sulfa (Sulfonamide Allergy Severe Difficulty Verified 03/06/24 13:41 Antibiotics) Swallowing influenza virus vaccine, Allergy Intermediate Swelling Verified 03/06/24 13:41 specific [Influenza Virus Vacc,Specific] pneumococcal vaccine Allergy Intermediate Swelling Verified 03/06/24 13:41 [PNEUMOCOCCAL VACCINE] Assessment & Plan Assessment & Plan (1) Depression, major, severe recurrence: Status: Acute Code(s): F33.2 - Major depressive disorder, recurrent severe without psychotic features (2) PTSD (post-traumatic stress disorder): Status: Acute Code(s): F43.10 - Post-traumatic stress disorder, unspecified (3) Cocaine use disorder: Status: Acute Code(s): F14.10 - Cocaine abuse, uncomplicated (4) Opioid use disorder, moderate, in early remission, on maintenance therapy, dependence: Status: Acute Code(s): F11.21 - Opioid dependence, in remission Plan Ms. Allen is a 63 year-old woman with hx of MDD, PTSD, cocaine and opioid use disorder who called [facility] crisis, assessed at her home and brought on a sect 12a. Utox positive for methadone and cocaine. She reports frequent falls and although she reports is due to narcolepsy also reports she underwent some studies and not prescribed any medications. Will gather collateral information from ehr PCP and neurology. She reports sporadic use of cocaine, vague psychotic symptoms although she reports are intermittent and she is aware others can't see them. PLAN 03/08- continue tx. 03/09 continue tx. discussed increasing sertraline. 03/10 continue tx. 03/12 continue tx. increase while on the unit ativan 1mg po BID prn, but will hold dose if pt over sedated. will also change gabapentin and lamictal to bedtime. 03/13 continue tx. PT consult 03/14 continue tx 03/15: Continue current regimen and plans. Increase nighttime Ativan to 1.5 mg p.r.n. 03/16: Continue current regimen and plans 03/17 decrease ativan Reason for continued inpatient stay Substantial Risk for: inability to function Time Spent With Patient Time: Total time managing care of this patient today ____ minutes.
[2024-03-17] MEDS: methADONE HCl 20 MG/2 ML ORAL.CONC 90 MG PO (09:25)
[2024-03-17] MEDS: TiZANidine HCL 4 MG TABLET PO ×3 (09:27→20:08)
[2024-03-17] MEDS: Sertraline HCL 50 MG TABLET 150 MG PO (09:27)
[2024-03-17] MEDS: Donepezil HCl 5 MG TABLET PO (09:27)
[2024-03-17 09:28] VITALS: BP 159/90
[2024-03-17] MEDS: amLODIPine Besylate 5 MG TABLET PO (09:28)
[2024-03-17] MEDS: Multivitamin TABLET 1 TAB PO (09:29)
[2024-03-17] MEDS: Nicotine 21 MG PATCH.TD24 TRANSDERMA (11:21)
[2024-03-17] MEDS: Calcium + Vitamin D 250 MG TABLET 500 MG PO ×2 (11:21→20:07)
[2024-03-17 14:06] VITALS: BP 165/91
[2024-03-17] MEDS: hydroCHLOROthiazide 12.5 MG TABLET PO (14:06)
[2024-03-17] MEDS: LORazepam 0.5 MG TABLET PO (14:12)
[2024-03-17 16:04] VITALS: BP 165/91
[2024-03-17 20:03] VITALS: BP 133/77; PULSE 68; RESP 14; TEMP 35.8; O2SAT 98
[2024-03-17 20:08] VITALS: BP 133/77
[2024-03-17] MEDS: Prazosin HCL 1 MG CAPSULE 2 MG PO (20:08)
[2024-03-17] MEDS: Gabapentin 100 MG CAPSULE PO (20:08)
[2024-03-17] MEDS: Doxepin HCl 25 MG CAPSULE 50 MG PO (20:08)
[2024-03-17] MEDS: lamoTRIgine 25 MG TABLET 150 MG PO (20:09)
[2024-03-17] MEDS: Cyclobenzaprine HCl 5 MG TABLET PO (22:15)
[2024-03-18] MEDS: Levothyroxine Sodium 200 MCG TABLET PO (05:33)
[2024-03-18 08:21] VITALS: BP 153/83; PULSE 75; RESP 15; TEMP 36.7; O2SAT 100
[2024-03-18] MEDS: methADONE HCl 20 MG/2 ML ORAL.CONC 90 MG PO (08:21)
[2024-03-18] MEDS: amLODIPine Besylate 5 MG TABLET PO (08:25)
[2024-03-18] MEDS: Lidocaine 4 % Patch ADH..PATCH 1 PATCH TRANSDERMA (08:25)
[2024-03-18] MEDS: TiZANidine HCL 4 MG TABLET PO ×2 (08:25→14:56)
[2024-03-18] MEDS: hydroCHLOROthiazide 12.5 MG TABLET PO (08:25)
[2024-03-18] MEDS: Calcium + Vitamin D 250 MG TABLET 500 MG PO (08:26)
[2024-03-18] MEDS: Donepezil HCl 5 MG TABLET PO (08:26)
[2024-03-18] MEDS: Multivitamin TABLET 1 TAB PO (08:26)
[2024-03-18] MEDS: Sertraline HCL 50 MG TABLET 150 MG PO (08:26)
[2024-03-18] MEDS: LORazepam 0.5 MG TABLET PO (08:33)
[2024-03-18] MEDS: Nicotine 21 MG PATCH.TD24 TRANSDERMA (08:33)
[2024-03-18] MEDS: Nicotine Polacrilex 2 MG GUM BUCCAL ×2 (08:33→10:15)
--- NOTE | 2024-03-18 14:40 | PM.PSYDC ---
DS: Providers Provider Date of Service: 03/18/24 Date of admission: 03/07/24 11:21 Date of discharge: 03/18/24 Primary care physician: Sascha Joyner MD DS: Diagnosis Discharge Diagnosis (1) Depression, major, severe recurrence: Status: Acute (2) PTSD (post-traumatic stress disorder): Status: Acute (3) Cocaine use disorder: Status: Acute (4) Opioid use disorder, moderate, in early remission, on maintenance therapy, dependence: Status: Acute DS: Medications Discharge Medications Home Medications: Home Medications ?Medication ?Instructions ?Recorded ?Confirmed methadone 10 mg/mL oral 90 mg PO DAILY 03/06/24 03/07/24 concentrate (Methadone Intensol) Previous Rx's ?Medication ?Instructions ?Recorded lorazepam 1 mg tablet 1 mg PO DAILY PRN Anxiety 30 days 09/26/23 #30 tabs amlodipine 5 mg tablet 5 mg PO DAILY #30 tabs 03/18/24 calcium carbonate 250 mg-vitamin 2 tab PO BID #60 tabs 03/18/24 D3 3.125 mcg (125 unit) tablet cyclobenzaprine 5 mg tablet 5 mg PO BEDTIME PRN Pain, Moderate 03/18/24 #30 tabs donepezil 5 mg tablet 5 mg PO DAILY #30 tabs 03/18/24 doxepin 25 mg capsule 50 mg (2 x 25 mg) PO BEDTIME #60 03/18/24 caps doxepin 50 mg capsule 50 mg PO BEDTIME #30 caps 03/18/24 doxepin 50 mg capsule 50 mg PO BEDTIME #30 caps 03/18/24 gabapentin 100 mg capsule 100 mg PO BEDTIME #30 caps 03/18/24 hydrochlorothiazide 12.5 mg tablet 12.5 mg PO DAILY #30 tabs 03/18/24 lamotrigine 150 mg tablet 150 mg PO BEDTIME #30 tabs 03/18/24 lamotrigine 150 mg tablet 150 mg PO DAILY #30 tabs 03/18/24 lamotrigine 150 mg tablet 150 mg PO DAILY #30 tabs 03/18/24 levothyroxine 200 mcg tablet 200 mcg PO DAILY@0600 #30 tabs 03/18/24 (Synthroid) lidocaine 4 % topical patch 1 patch transdermal DAILY #30 ea 03/18/24 (Lidocaine Pain Relief) multivitamin (Daily-Earl tablet) 1 tab PO DAILY #30 tabs 03/18/24 nicotine (polacrilex) 2 mg gum 2 mg buccal Q2H PRN Nicotine 03/18/24 Cravings #30 ea nicotine 21 mg/24 hr daily 21 mg transdermal DAILY PRN 03/18/24 transdermal patch nicotine cravings #30 ea prazosin 1 mg capsule 2 mg PO BEDTIME #60 caps 03/18/24 prazosin 2 mg capsule 2 mg PO BEDTIME #30 caps 03/18/24 prazosin 2 mg capsule 2 mg PO BEDTIME #30 caps 03/18/24 prazosin 2 mg capsule 2 mg PO BEDTIME #30 caps 03/18/24 sertraline 150 mg capsule 150 mg PO DAILY #30 caps 03/18/24 sertraline 50 mg tablet 150 mg (3 x 50 mg) PO DAILY #90 03/18/24 tabs tizanidine 4 mg tablet 4 mg PO TID #90 tabs 03/18/24 Mental Status Exam Mental Status Exam Narrative: Appearance: wearing hospital gown, fair hygiene, in NAD Behavior: cooperative Psychomotor: no agitation or retardation noted Speech: clear, normal rate/rhythm/volume, spontaneous TP: linear TC: without psychosis, seeking treatment and help mood: better Affect: brighter, non labile SI: none HI: none VH/AH: at times reports seeing shadows then realizes they are not there Delusions: no overt delusional content Insight/judgment: poor x 2. Memory/cog; alert, oriented x 4. MOCA 19/30, ACL 4.4 Data Imaging Diagnostic Imaging Impressions Cervical Spine CT 03/06/24 15:47 IMPRESSION: No acute osseous cervical spine abnormality. Significant degenerative disease is noted at C5-6 and C6-7 as described. There is a partially visualized nodular opacity within the left lung apex measuring 1.9 x 1.4 cm. This is best seen on image #299, series #6. The lateral extent of this nodular opacity is indeterminate as it is collimated from the [id number]. Further evaluation with chest radiograph is recommended to further evaluate this. Fleischner guidelines were followed. Electronically signed by: Jose Tapia DO 03/06/2024 05:[address] 03/06/24 15:47 IMPRESSION: No acute facial bone fracture. Mild right frontal scalp swelling. Electronically signed by: Jose Tapia DO 03/06/2024 05:06 PM EDT RP Head CT 03/06/24 15:47 IMPRESSION: No acute intracranial pathology. Electronically signed by: Jose Tapia DO 03/06/2024 04:56 PM EDT RP Chest X-Ray 03/06/24 20:55 IMPRESSION: No active cardiopulmonary disease. Electronically signed by: Michael Salazar MD 03/06/2024 10:00 PM EDT RP Head CT 03/11/24 08:50 IMPRESSION: Normal CT scan of the head. No evidence of acute territorial infarct or hemorrhage. Electronically signed by: Kiko Christina MD 03/11/2024 12:16 PM EDT RP Hip/Pelvis X-Ray 03/11/24 08:55 IMPRESSION: 1. Moderate degenerative changes in the bilateral hips. 2. Diffuse demineralization. Additional imaging with CT scan or MRI should be considered for better visualization as these modalities are much more sensitive for detection of fracture or other underlying pathology. Electronically signed by: Antonia Ellis MD 03/11/2024 01:12 PM EDT RP Hip CT 03/11/24 18:30 IMPRESSION: 1. No acute fracture or malalignment. 2. 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 Electronically signed by: Israel Maurer MD 03/11/2024 11:05 PM EDT RP DS: Summary Hospital Course Hospital Course: Subjective Notes: Henry Warning and Conditional Voluntary Narrative: Ms. Allen is a 63 year-old with hx of MDD, cocaine and opioid use disorder who was called 911 reporting increase depression and SI with plan to OD on fentanyl. Utox in the ED was positive for methadone and cocaine. She was last admitted psychiatrically on M5 back in 09/2023 for similar situation. On the unit, pt presents as tearful, mildly dysphoric. Pt reports she has been feeling increasingly more depressed in part related to frequent falls which pt reports is secondary to narcolepsy (unclear if this is the case as she is not on any medication for it, she also reports being worked up for seizures). She reports at times seeing shadows of people that when she turns around are not there. This has been going on for the past 2 years. She continues to report suicidal ideation denies any plan or intent here on the unit but states that without help she may end up hurting herself. She reports fair sleep. She reports chronic back pain, feeling stiff at times. During prior hospitalization on M5, pt completed MOCA scored 17/30. Pt presents as oriented to place, situation, month and year. HOSPITAL COURSE On the unit, pt was admitted on a CV. She presented with dysphoric affect. She reports intermittent suicidal ideation in context of feeling like her physical health is deteriorating. She denies any plan or intent to harm herself. She minimizes extent of cocaine use and effects of her health and mood. She declined referrals for substance use disorder. She did not show any signs of visual or auditory hallucinations. She was somewhat sedated with combination of methadone and ativan. Recommend to stop ativan. After discussing risks, benefits and alternative treatment options, sertraline was increased to 150mg po daily. She was sleeping most of the night. Initially she presented with more difficulties walking but during admission, pt spontaneously walk on her own with steady gait. STR was no longer recommended. Pt agreed to continue working with outpatient providers through [facility]. Status at Discharge Cognitive/behavioral status at discharge: Pt with bright, non labile affect. No SI/HI. No VH/AH. No delusions. Sleeping and eating well. No aggression towards self or others. Functional status at discharge: uses cane/walker Overall status at discharge: patient is progressing back to baseline Time Spent with Patient Time attestation: Total time managing care of this patient today __35__ minutes. Time spent: Greater than 30 minutes Discharge Plan Discharge Anticipated Discharge Date/Time: 03/18/24 14:32 Patient Disposition: Home, Self-Care Discharge Diagnosis: MDD OPioid use disoder cocaine use disorder Referrals: [facility] [Other] - 3-5 Days (Request made for your therapy and psychiatry appointments and they will contact you with the appointment dates and times. Your appointments are as follows. 04/17/2024 2:50 PM - 3:10 PM [facility] Psychiat[facility] telehealth 03/20/2024 2:00 PM - 3:00 PM Rhoda [facility] Therapy in office) [facility] [Other] - 03/19/24 (Your health care facilities inspector Bernice will continue to work with you on finding alternate housing and follow up on others needs. Bernice will follow up with you by phone on 03/19/24 which was discussed in discharge meeting. ) [facility] [Other] - 3-5 Days (Referral for VNA placed. ) [facility] [Other] - 3-5 Days (Protective Services case reviewer Delores Graf to follow up with you after discharge. ) Sascha Joyner MD [Primary Care Provider] - 1 Week (Your providers office will contact you directly to schedule a follow up appointment. ) Discharge Medications: New donepezil 5 mg Tablet 5 mg PO DAILY Qty: 30 0RF nicotine (polacrilex) 2 mg Gum 2 mg buccal Q2H PRN (Reason: Nicotine Cravings) Qty: 30 0RF tizanidine 4 mg Tablet 4 mg PO TID Qty: 90 0RF amlodipine 5 mg Tablet 5 mg PO DAILY Qty: 30 0RF Protocol: Hold for SBP< HOLD for SBP < : 90 nicotine 21 mg/24 hr Patch 24 Hour 21 mg transdermal DAILY PRN (Reason: nicotine cravings) Qty: 30 0RF cyclobenzaprine 5 mg Tablet 5 mg PO BEDTIME PRN (Reason: Pain, Moderate) Qty: 30 0RF prazosin 2 mg capsule 2 mg PO BEDTIME Qty: 30 0RF doxepin 50 mg capsule 50 mg PO BEDTIME Qty: 30 0RF gabapentin 100 mg Capsule 100 mg PO BEDTIME Qty: 30 0RF lamotrigine 150 mg tablet 150 mg PO BEDTIME Qty: 30 0RF sertraline 150 mg capsule 150 mg PO DAILY Qty: 30 0RF multivitamin [Daily-Earl] Tablet 1 tab PO DAILY Qty: 30 0RF lidocaine [Lidocaine Pain Relief] 4 % Adhesive Patch,Medicated 1 patch transdermal DAILY Qty: 30 0RF Protocol: Apply to: Apply to: back pain levothyroxine [Synthroid] 200 mcg Tablet 200 mcg PO DAILY@0600 Qty: 30 0RF calcium carbonate-vitamin D3 250 mg-3.125 mcg (125 unit) Tablet 2 tab PO BID Qty: 60 0RF hydrochlorothiazide 12.5 mg Tablet 12.5 mg PO DAILY Qty: 30 0RF Protocol: Hold for SBP< HOLD for SBP < : 90 prazosin 2 mg capsule 2 mg PO BEDTIME Qty: 30 0RF doxepin 50 mg capsule 50 mg PO BEDTIME Qty: 30 0RF prazosin 2 mg capsule 2 mg PO BEDTIME Qty: 30 0RF doxepin 25 mg Capsule 50 mg PO BEDTIME Qty: 60 0RF lamotrigine 150 mg tablet 150 mg PO DAILY Qty: 30 0RF sertraline 50 mg Tablet 150 mg PO DAILY Qty: 90 0RF prazosin 1 mg Capsule 2 mg PO BEDTIME Qty: 60 0RF Protocol: Hold for SBP< HOLD for SBP < : 90 lamotrigine 150 mg tablet 150 mg PO DAILY Qty: 30 0RF Continued lorazepam 1 mg tablet 1 mg PO DAILY PRN (Reason: Anxiety) 30 Days Qty: 30 0RF methadone [Methadone Intensol] 10 mg/mL Concentrate 90 mg PO DAILY Discontinued nicotine 21 mg/24 hr Patch 24 Hour 21 mg transdermal DAILY PRN (Reason: nicotine cravings) 28 Days Qty: 28 0RF nicotine (polacrilex) 2 mg Gum 2 mg buccal Q2H PRN (Reason: Nicotine Cravings) 30 Days Qty: 100 0RF clonidine HCl 0.1 mg Tablet 0.1 mg PO BID@0900,1300 30 Days Qty: 60 0RF Protocol: Hold for SBP< HOLD for SBP < : 90 chlorpromazine 25 mg Tablet 25 mg PO BEDTIME PRN (Reason: insomnia) 30 Days Qty: 30 0RF multivitamin Tablet 1 tab PO DAILY 30 Days Qty: 30 0RF lamotrigine 150 mg tablet 150 mg PO DAILY 30 Days Qty: 30 0RF doxepin 50 mg capsule 50 mg PO BEDTIME 30 Days Qty: 30 0RF sertraline 100 mg tablet 100 mg PO BID 30 Days Qty: 60 0RF amlodipine 5 mg tablet 5 mg PO DAILY 30 Days Qty: 30 0RF hydrochlorothiazide 12.5 mg capsule 12.5 mg PO DAILY 30 Days Qty: 30 0RF levothyroxine 200 mcg tablet 200 mcg PO DAILY 30 Days Qty: 30 0RF prazosin 2 mg capsule 2 mg PO BEDTIME 30 Days Qty: 30 0RF cyclobenzaprine 5 mg tablet 5 mg PO BEDTIME PRN (Reason: Pain, Moderate) 30 Days Qty: 30 0RF Calcium 600 with Vitamin D3 600 mg-10 mcg (400 unit) tablet,chewable 1 tab PO BID 30 Days Qty: 60 0RF gabapentin 100 mg capsule 100 mg PO DAILY donepezil 5 mg tablet 5 mg PO DAILY Discharge Orders: Discharge Order (Routine); Ordered 03/18/24 Ordered By: Gini Baker Diet: Regular diet Activity on Discharge: As tolerated Stand Alone Forms: Patient Portal Discharge page, Community Support Print Language: [place] Care Plan Goals: 1. Maintain mood 2. NO SI/HI 3. Harm reduction- narcan given on discharge Health Concerns: follow up with PCP Plan of Treatment: 1. Take medications as prescribed 2. Go to nearest ED or call 911 in event of emergency Assessment: pt with brighter, non labile affect. NO SI/HI. sleeping and eating well. no vh/ah, no delusions. Discharge Date/Time: 03/18/24 15:18
== END 2024-03-18 15:18 | disposition home or self-care (01) | DRG 885 ==
LOC: HO.ED 03-07 01:21 → HO.PGERI 03-07 11:29
PROVIDERS: Physician Assistant; Admitting Provider Social Worker; Emergency Provider Emergency Medicine; PCP Internal Medicine; Visit Provider Social Worker
DX: F33.2 Major depressive disorder, recurrent severe without psychotic features (principal); R45.851 Suicidal ideations; F11.20 Opioid dependence, uncomplicated; R29.6 Repeated falls; F17.210 Nicotine dependence, cigarettes, uncomplicated; E03.9 Hypothyroidism, unspecified; Z71.6 Tobacco abuse counseling; F14.10 Cocaine abuse, uncomplicated; Z79.890 Hormone replacement therapy; Z79.899 Other long term (current) drug therapy
CPT/HCPCS: 36415; 70450; 70486; 71046; 72125; 73521; 73700; 80048; 80053; 80061; 80076; 80307; 81003; 82550; 82570; 82607; 82746; 82947; 83036; 83735; 83935; 84300; 84443; 85025; 93005; 97163; 97530; 99285

== ENCOUNTER → 2024-03-07 11:21 | Outpatient (BNV) | payer OTHER, SELFPAY | PROVIDERS: Admitting Provider Social Worker; Emergency Provider Emergency Medicine; PCP Internal Medicine; Visit Provider Social Worker | DX: F33.2 Major depressive disorder, recurrent severe without psychotic features (principal); F14.10 Cocaine abuse, uncomplicated; F11.21 Opioid dependence, in remission; F43.11 Post-traumatic stress disorder, acute | CPT/HCPCS: 90792; 99231; 99232; 99239 ==